=== PATIENT | male | born 1940 | race Native Hawaiian/Other Pacific Islander ===

== ENCOUNTER 2017-03-27 06:28 | Inpatient (IN) | payer MEDICARE ==
[2017-03-27 06:29] VITALS: BMI 22.8
[2017-03-27 07:04] LABS: BASO # 0.1 K/uL (0.0-0.2); BASO % 0.5 % (0.0-2.0); EOS # 0.3 K/uL (0.0-0.7); EOS % 1.4 % (0.0-4.0); HEMATOCRIT 45.4 % (35.0-51.0); LYMPH # 1.8 K/uL (1.0-4.3); LYMPH % 8.5 % (20.0-40.0); MEAN CELL VOLUME 90.2 fL (80.0-94.0); MEAN CORPUSCULAR HEMOGLOBIN 30.5 pg (27.0-31.0); MEAN CORPUSCULAR HGB CONC 33.8 g/dL (33.0-37.0); MEAN PLATELET VOLUME 8.3 fL (7.2-11.7); MONO % 4.6 % (0.0-10.0); PLATELET COUNT 241 K/uL (130-400); RED CELL DISTRIBUTION WIDTH 13.4 % (11.5-14.5)
[2017-03-27 07:07] LABS: WHITE BLOOD COUNT 21.7 K/uL (4.8-10.8)
[2017-03-27 07:11] LABS: CHLORIDE 92 mmol/L (98-107); SODIUM 134 mmol/L (132-148)
[2017-03-27 07:12] LABS: POTASSIUM 3.9 mmol/L (3.6-5.2)
[2017-03-27 07:14] LABS: ALB/GLOB RATIO 1.2 (1.0-2.1); ALKALINE PHOSPHATASE 93 U/L (38-126); ALT/SGPT 36 U/L (21-72); AST/SGOT 36 U/L (17-59); BILIRUBIN,TOTAL 1.1 mg/dL (0.2-1.3); BLOOD UREA NITROGEN 19 mg/dL (9-20); CARBON DIOXIDE 25 mmol/L (22-30); GFR AFRICAN-AMERICAN > 60; GLUCOSE,RANDOM 294 mg/dL (75-110); INR 1.2; TOTAL PROTEIN 9.2 g/dL (6.3-8.3)
[2017-03-27 07:15] LABS: CALCIUM 9.9 mg/dl (8.6-10.4)
[2017-03-27] MEDS ORDERED: Sodium Chloride 0.9% 1,000 ML ONE ×3 (07:38→13:12)
--- NOTE | 2017-03-27 07:52 | C.PDOC ---
History Of Present Illness 77-year-old male, PMHx includes Arthritis, Atrial Fibrillation, Diabetes, Colon CA, Gastritis, Hypertension, Hypercholesterolemia, presents to the emergency department accompanied by (acting as historian), with complaints of abdominal pain. reports that patient developed lower abdominal pain that started at 12:00 this morning. Pain persistent in nature and non-radiating, described as a "cramping" sensation. reports that patient woke up this morning, and developed nausea with non-bloody vomiting, resulting in him being brought to the ED for evaluation. Last normal bowel movement was yesterday morning. No fevers, chills, chest pain, shortness of breath, back pain, dizziness, bloody stool, or any other associated symptoms. No other complaints at this time. Of note, patient is lactulose dependent (every two days) due to chronic constipation. Time Seen by Provider: 03/27/17 07:20 Chief Complaint (Nursing): Abdominal Pain History Per: Patient, Family History/Exam Limitations: no limitations Onset/Duration Of Symptoms: Hrs Current Symptoms Are (Timing): Still Present Severity: Moderate Location Of Pain/Discomfort: RLQ, LLQ Associated Symptoms: Nausea, Vomiting Past Medical History Reviewed: Historical Data, Nursing Documentation, Vital Signs Vital Signs: Last Vital Signs Temp 100.6 F H 03/27/17 13:08 Pulse 117 H 03/27/17 13:08 Resp 18 03/27/17 13:08 BP 139/67 03/27/17 13:08 Pulse Ox 98 03/27/17 13:55 - Medical History PMH: Arthritis, Atrial Fibrillation, Cardia Arrhythmia, Diabetes, 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 Constitutional: Negative for: Fever Cardiovascular: Negative for: Chest Pain Gastrointestinal: Positive for: Nausea, Vomiting, Abdominal Pain. Negative for : Hematochezia, Hematemesis Musculoskeletal: Negative for: Back Pain Neurological: Negative for: Weakness, Numbness, Headache, Dizziness Physical Exam - Physical Exam Appears: Non-toxic, No Acute Distress, Other (Actively vomiting.) Skin: Warm, Dry, No Rash Head: Atraumatic, Normacephalic Eye(s): bilateral: Normal Inspection, PERRL Nose: Normal Oral Mucosa: Moist Lips: Normal Appearing Neck: Normal ROM, Supple Chest: Symmetrical Cardiovascular: Rhythm Regular, No Friction Rub, No Murmur Respiratory: Normal Breath Sounds, No Accessory Muscle Use Gastrointestinal/Abdominal: Bowel Sounds (active), Soft, Tenderness (lower), No Guarding, No Rebound Extremity: Normal ROM, No Tenderness, No Swelling Neurological/Psych: Oriented x3, Normal Speech, Normal Motor Gait: Steady ED Course And Treatment - Laboratory Results Result Diagrams: 03/27/17 07:00 03/27/17 07:00 O2 Sat by Pulse Oximetry: 98 (on RA) Pulse Ox Interpretation: Normal - CT Scan/US CT Abd/Pel Other Rad Studies (CT/US): Read By Radiologist, Radiology Report Reviewed CT/US Interpretation: Accession No. : [id number]. Patient Name / ID : AMIRAH FINN / [id number]. Exam Date : 03/27/2017 11:42:57 ( Approved ). Study Comment : Sex / Age : M / 77Y. Creator : Rocky Perea MD. Dictator : Rocky Perea MD. Insurance Agency Manager : Athletics Teacher : Rocky Perea MD. Approver2 : Report Date : 03/27/2017 13:09:39. My Comment : . PROCEDURE: CT Abdomen and Pelvis with contrast. HISTORY: abd pain, r/o obstruction. COMPARISON: 2014. TECHNIQUE: Contrast dose: Radiation dose: Total exam DLP = 887 mGy-cm. This CT exam was performed using one or more of the following dose reduction techniques: Automated exposure control, adjustment of the mA and/or kV according to patient size, and/or use of iterative reconstruction technique. FINDINGS: LOWER THORAX: Small right lower lobe infiltrate.. LIVER: Unremarkable. No gross lesion or ductal dilatation. GALLBLADDER AND BILE DUCTS: Gallstones.. PANCREAS: Unremarkable. No gross lesion or ductal dilatation. SPLEEN: Unremarkable. ADRENALS: Unremarkable. No mass. KIDNEYS AND URETERS: Unremarkable. No hydronephrosis. No solid mass. VASCULATURE: Unremarkable. No aortic aneurysm. BOWEL: Multiple dilated Loops of small bowel particularly in the left lower quadrant compatible with early or partial small bowel obstruction vs. Ileus. Evidence of previous bowel surgery.. No obstruction. No gross mural thickening. APPENDIX: Normal appendix. PERITONEUM: Unremarkable. No free fluid. No free air. LYMPH NODES: Unremarkable. No enlarged lymph nodes. BLADDER: Unremarkable. REPRODUCTIVE : Unremarkable. BONES: No acute fracture. OTHER FINDINGS: None. IMPRESSION : Multiple dilated Loops of small bowel with fluid in the left lower quadrant compatible with early or partial small bowel obstruction vs. Ileus. Otherwise, pcontrast enhanced CT of the abdomen and pelvis. Medical Decision Making Medical Decision Making: Plan: * VBG Shock Panel * CMP, Lipase * CBC, PTT, PT * Chest X-Ray * Morphine, IVF, Zofran * Urine Culture * X-Ray: Abd * Urinalysis * Reassess and Disposition Progress: Patients WBC found to be 21.7, and bands 17, will order CT Abd/Pel to r/o obstruction. [address] shows Multiple dilated Loops of small bowel with fluid in the left lower quadrant compatible with early or partial small bowel obstruction vs. Ileus. Otherwise, contrast enhanced CT of the abdomen and pelvis. 1348, CT and CXR show Right lower infiltrate will treat for community acquired pneumonia with rocephin and zithromax IV. 1350, the case was discussed with the vice president lending oncjordon and consult was placed for Dr. Torres (general surgeon oncall) for SMall bowel obstruction. Disposition - Disposition Disposition: HOSPITALIZED Disposition Time: 13:57 Condition: FAIR - POA Present On Arrival: None - Clinical Impression Clinical Impression: Abdominal pain, Small bowel obstruction, Pneumonia - Scribe Statement The provider has reviewed the documentation as recorded by the Judith Spencer All medical record entries made by the Scribe were at my direction and personally dictated by me. I have reviewed the chart and agree that the record accurately reflects my personal performance of the history, physical exam, medical decision making, and the department course for this patient. I have also personally directed, reviewed, and agree with the discharge instructions and disposition.
[2017-03-27] MEDS ORDERED: Sodium Chloride 0.9% 1,000 ML IV ONE ×3 (07:54→13:09)
[2017-03-27] MEDS ORDERED: Morphine 4 MG/ML VIAL ONE (08:01)
[2017-03-27 08:17] LABS: EOSINOPHIL 1 % (0-4); NEUTROPHIL 68 % (50-75); TOTAL CELLS COUNTED 100
[2017-03-27 08:20] LABS: RBC URINE 1 /hpf (0-3); URINE BILIRUBIN NEGATIVE (NEGATIVE); URINE BLOOD 1+ (NEGATIVE); URINE COLOR Yellow (YELLOW); URINE GLUCOSE (UA) 3+ mg/dL (Normal); URINE KETONE NEGATIVE (NEGATIVE); URINE LEUKOCYTE ESTERASE NEG Leu/uL (Negative); URINE PROTEIN NEGATIVE (NEGATIVE); URINE UROBILINOGEN NORMAL mg/dL (0.2-1.0); WBC URINE 1 /hpf (0-5)
[2017-03-27 08:54] LABS: VENOUS BLOOD GAS BASE EXCESS 0.5 mmol/L (0.0-2.0); VENOUS BLOOD GAS PCO2 61 mmHg (40-60); VENOUS BLOOD PH 7.28 (7.32-7.43)
[2017-03-27] MEDS ORDERED: Iohexol 240 (50 ml) ONE (09:04)
[2017-03-27] MEDS ORDERED: Iohexol 240 (50 ml) PO STA (09:07)
[2017-03-27] MEDS ORDERED: Iodixanol 320 MG/ML 100 ML BOTTLE IV ONE (11:33)
--- NOTE | 2017-03-27 13:11 | CT ---
PROCEDURE: CT Abdomen and Pelvis with contrast HISTORY: abd pain, r/o obstruction COMPARISON: 2014. TECHNIQUE: Contrast dose: Radiation dose: Total exam DLP = 887 mGy-cm. This CT exam was performed using one or more of the following dose reduction techniques: Automated exposure control, adjustment of the mA and/or kV according to patient size, and/or use of iterative reconstruction technique. FINDINGS: LOWER THORAX: Small right lower lobe infiltrate.. LIVER: Unremarkable. No gross lesion or ductal dilatation. GALLBLADDER AND BILE DUCTS: Gallstones.. PANCREAS: Unremarkable. No gross lesion or ductal dilatation. SPLEEN: Unremarkable. ADRENALS: Unremarkable. No mass. KIDNEYS AND URETERS: Unremarkable. No hydronephrosis. No solid mass. VASCULATURE: Unremarkable. No aortic aneurysm. BOWEL: Multiple dilated Loops of small bowel particularly in the left lower quadrant compatible with early or partial small bowel obstruction vs. Ileus. Evidence of previous bowel surgery.. No obstruction. No gross mural thickening. APPENDIX: Normal appendix. PERITONEUM: Unremarkable. No free fluid. No free air. LYMPH NODES: Unremarkable. No enlarged lymph nodes. BLADDER: Unremarkable. REPRODUCTIVE: Unremarkable. BONES: No acute fracture. OTHER FINDINGS: None. IMPRESSION: Multiple dilated Loops of small bowel with fluid in the left lower quadrant compatible with early or partial small bowel obstruction vs. Ileus. Otherwise, pcontrast enhanced CT of the abdomen and pelvis.
--- NOTE | 2017-03-27 13:47 | RAD ---
HISTORY: ABD PAIN COMPARISON: No prior. FINDINGS: BOWEL: Multiple dilated loops of small bowel with air-fluid levels compatible with small bowel obstruction. BONES: Normal. OTHER FINDINGS: None. IMPRESSION: Findings suggestive of small-bowel obstruction.
[2017-03-27] MEDS ORDERED: cefTRIAXone IV 1 gm in Dextros 50 ML IV ONE (13:50)
--- NOTE | 2017-03-27 13:51 | RAD ---
HISTORY: abd pain COMPARISON: No prior. FINDINGS: LUNGS: No active pulmonary disease. PLEURA: No significant pleural effusion identified, no pneumothorax apparent. CARDIOVASCULAR: Normal. OSSEOUS STRUCTURES: No significant abnormalities. VISUALIZED UPPER ABDOMEN: Normal. OTHER FINDINGS: None. IMPRESSION: No active disease.
[2017-03-27] MEDS ORDERED: Digoxin 500 mcg/2ml (0.5 mg/2ml) Inj IVP ONE (13:58)
[2017-03-27] MEDS ORDERED: Azithromycin 500mg/250ML NS 500 MG/250 ML BAG IV SCH (14:00)
[2017-03-27] MEDS ORDERED: cefTRIAXone IV 1 gm in Dextros 50 ML IVPB ONE (14:13)
[2017-03-27] MEDS ORDERED: Digoxin 500 mcg/2ml (0.5 mg/2ml) Inj ONE (14:14)
[2017-03-27 14:21] VITALS: PULSE 106
--- NOTE | 2017-03-27 15:22 | CP.PCM.CON ---
History of Present Illness - History of Present Illness History of Present Illness: Surgery Consult: Dr. Torres CC: "Abdominal pain" HPI: 77 yo M with a hx of Colon CA in remission, left hemicolectomy, AFib, DM, gastritis, HTN, HLD, and SBO presents to the abdominal pain that began at midnight this morning. At 5AM, he experienced some nausea and vomited clear liquid. He vomited twice more in the ED but responded to Zofran and has not vomited since then. He had a similar episode of SBO 4 years ago which resulted in admission w/ ex-lap and lysis of adhesions. His reports that he has not been passing flatus. Denies fever and chills. Last BM was yesterday. MedHx: Colon CA, Afib, DM, gastritis, HTN, HLD SurgHx: Partial colon resection, ex-lap/w XIMENA FamHx: unknown Allergies: NKDA Review of Systems - Constitutional Constitutional: absent: Chills, Fever - Cardiovascular Cardiovascular: Irregular Heart Rhythm - Respiratory Respiratory: absent: Cough, Dyspnea on Exertion, Wheezing - Gastrointestinal Gastrointestinal: Abdominal Pain, Vomiting. absent: Change in Stool Character, Diarrhea Past Patient History - Infectious Disease Hx of Infectious Diseases: None - Past Medical History & Family History Past Medical History?: Yes - Past Social History Smoking Status: Former Smoker - CARDIAC Hx Atrial Fibrillation: Yes Hx Cardia Arrhythmia: Yes Hx Hypercholesterolemia: Yes Hx Hypertension: Yes - PULMONARY Hx Respiratory Disorders: No - NEUROLOGICAL Hx Neurological Disorder: Yes Other/Comment: NEUROPATHY - HEENT Hx HEENT Problems: Yes Other/Comment: HX DEVIATED SEPTUM - RENAL Hx Chronic Kidney Disease: No - ENDOCRINE/METABOLIC Hx Endocrine Disorders: Yes Hx Diabetes Mellitus Type 1: Yes Hx Diabetes Mellitus Type 2: Yes - HEMATOLOGICAL/ONCOLOGICAL Hx Blood Disorders: Yes Hx Blood Transfusions: Yes Hx Cancer: Yes (COLON) Hx Chemotherapy: Yes (,2003) - INTEGUMENTARY Hx Dermatological Problems: No - MUSCULOSKELETAL/RHEUMATOLOGICAL Hx Arthritis: Yes - GASTROINTESTINAL 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) Hx Gastritis: Yes - GENITOURINARY/GYNECOLOGICAL Hx Genitourinary Disorders: No - PSYCHIATRIC Hx Substance Use: No - SURGICAL HISTORY Hx Appendectomy: Yes Hx Tonsillectomy: Yes - ANESTHESIA Hx Anesthesia: Yes Hx Anesthesia Reactions: No Meds Allergies/Adverse Reactions: Allergies Allergy/AdvReac Type Severity Reaction Status Date / Time No Known Allergies Allergy Verified 04/10/13 16:16 - Medications Medications: Current Medications Azithromycin (Zithromax 500mg In Ns Addvantage) 500 mg in 250 mls @ 166.667 mls /hr IV STAT CAITLYN Physical Exam - Constitutional Appears: No Acute Distress - Head Exam Head Exam: NORMAL INSPECTION - ENT Exam ENT Exam: Mucous Membranes Moist - Respiratory Exam Respiratory Exam: Clear to Auscultation Bilateral - Cardiovascular Exam Cardiovascular Exam: Irregular Rhythm - GI/Abdominal Exam GI & Abdominal Exam: Distended, Normal Bowel Sounds, Soft, Tenderness (left lower and right quadrants). absent: Guarding, Hernia, Mass, Rebound, Rigid Additional comments: well-healed midline incision - Rectal Exam Rectal Exam: Deferred - Extremities Exam Extremities exam: Negative for: pedal edema - Neurological Exam Neurological exam: Alert, Oriented x3 - Psychiatric Exam Psychiatric exam: Normal Affect, Normal Mood - Skin Skin Exam: Normal Color, Warm Results - Vital Signs Recent Vital Signs: Last Vital Signs Temp 98.8 F 03/27/17 14:45 Pulse 96 H 03/27/17 14:45 Resp 16 03/27/17 14:45 BP 122/56 L 03/27/17 14:45 Pulse Ox 97 03/27/17 14:45 - Labs Result Diagrams: 03/27/17 07:00 03/27/17 07:00 Assessment & Plan - Assessment and Plan (Free Text) Assessment: 77M with PMHx Colon CA with SBO -Rec conservative mgmt at this time - NPO - zofran prn for nausea - pain meds prn - NGT if vomits again - Recommend GI consult d/w Dr Brian Mcpherson, DO, PGY2 - Date & Time Date: 03/27/17 Time: 15:52
[2017-03-27] MEDS ORDERED: HYDROmorphone 1 mg/ml ISec IVP PRN (15:41)
[2017-03-27] MEDS: Sodium Chloride 0.9% 1,000 ML IV SCH (16:45)
--- NOTE | 2017-03-27 17:29 | CP.PCM.HP ---
History of Present Illness - History of Present Illness History of Present Illness: chief complaint: abdominal pain 77-year-old male with history of colon cancer status post left hemicolectomy in 2003 and lysis of adhesions 4 years ago, history of atrial fibrillation, diabetes, hypertension, hyperlipidemia presented to emergency room with abdominal pain that started last night associated with vomiting once in the morning. CAT scan of the abdomen consistent with early small bowel obstruction/ ileus. Patient states that he is able to pass flatus. Denies cough, denies fever chills, denies night sweats.patient seen by surgery. patient also found to have elevated white count with bands MedHx: Colon CA, Afib, DM, gastritis, HTN, HLD SurgHx: Partial colon resection, ex-lap/w XIMENA FamHx: unknown Allergies: NKDA social history: no history of smoking or drinking Present on Admission - Present on Admission History of DVT/PE: No History of Uncontrolled Diabetes: Yes Review of Systems - Review of Systems All systems: reviewed and no additional remarkable complaints except (abdominal pain associated with vomiting once) Past Patient History - Infectious Disease Hx of Infectious Diseases: None - Past Medical History & Family History Past Medical History?: Yes - Past Social History Smoking Status: Never Smoked - CARDIAC Hx Atrial Fibrillation: Yes Hx Cardia Arrhythmia: Yes Hx Hypercholesterolemia: Yes Hx Hypertension: Yes - PULMONARY Hx Respiratory Disorders: No - NEUROLOGICAL Hx Neurological Disorder: Yes Other/Comment: NEUROPATHY - HEENT Hx HEENT Problems: Yes Other/Comment: HX DEVIATED SEPTUM - RENAL Hx Chronic Kidney Disease: No - ENDOCRINE/METABOLIC Hx Endocrine Disorders: Yes Hx Diabetes Mellitus Type 1: Yes Hx Diabetes Mellitus Type 2: Yes - HEMATOLOGICAL/ONCOLOGICAL Hx Blood Disorders: Yes Hx Blood Transfusions: Yes Hx Cancer: Yes (COLON) Hx Chemotherapy: Yes (,2003) - INTEGUMENTARY Hx Dermatological Problems: No - MUSCULOSKELETAL/RHEUMATOLOGICAL Hx Arthritis: Yes - GASTROINTESTINAL 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) Hx Gastritis: Yes - GENITOURINARY/GYNECOLOGICAL Hx Genitourinary Disorders: No - PSYCHIATRIC Hx Substance Use: No - SURGICAL HISTORY Hx Appendectomy: Yes Hx Tonsillectomy: Yes - ANESTHESIA Hx Anesthesia: Yes Hx Anesthesia Reactions: No Meds Allergies/Adverse Reactions: Allergies Allergy/AdvReac Type Severity Reaction Status Date / Time No Known Allergies Allergy Verified 04/10/13 16:16 Physical Exam - Constitutional Appears: No Acute Distress - Head Exam Head Exam: ATRAUMATIC, NORMOCEPHALIC - Eye Exam Eye Exam: Normal appearance - ENT Exam ENT Exam: Mucous Membranes Moist - Neck Exam Neck exam: Positive for: Normal Inspection - Respiratory Exam Respiratory Exam: Clear to Auscultation Bilateral - Cardiovascular Exam Cardiovascular Exam: REGULAR RHYTHM - GI/Abdominal Exam GI & Abdominal Exam: Diminished Bowel Sounds, Soft Results - Vital Signs Recent Vital Signs: Last Vital Signs Temp 98.8 F 03/27/17 14:45 Pulse 96 H 03/27/17 14:45 Resp 16 03/27/17 14:45 BP 122/56 L 03/27/17 14:45 Pulse Ox 97 03/27/17 14:45 - Labs Result Diagrams: 03/27/17 07:00 03/27/17 07:00 Labs: Laboratory Results - last 24 hr 03/27/17 16:08 POC Glucose (mg/dL) 105 Assessment & Plan (1) Leucocytosis Status: Acute Comment: elevated white count with bands Etiology unknown. Chest x-ray showed no infiltrate but CAT scan of the abdomen consistent with small right lung infiltrate, Gallstones and early small bowel obstruction. ID evaluation. Followup culture and sensitivity. No indication for surgery at this point. Glycemic control (2) Abdominal pain Status: Acute (3) Small bowel obstruction Status: Acute
--- NOTE | 2017-03-27 17:56 | CP.PCM.CON ---
History of Present Illness - History of Present Illness History of Present Illness: INFECTIOUS DISEASE CONSULT: HPI: 77-year-old male with history of COLON CA , DX 2003 S/P left hemicolectomy with postoperative chemotherapy and radiation therapy, atrial fibrillation, diabetes mellitus, gastritis, hypertension, hyperlipidemia and with history of previous small bowel obstruction with exploratory lap and lysis of adhesions who presented to [facility] ER with generalized abdominal pain which started midnight this morning. He also experienced nausea and vomited clear liquids at 5 AM in the morning. This resulted in his to bring him to the ER where he vomited twice but responded to Zofran and has not vomited since then. Patient's is present which may be giving the history that he had similar episode of small bowel obstruction for years ago which resulted in exploratory lap and lysis of adhesions. She also states patient has chronic constipation for which she takes lactulose every other day. On admission patient was found to have elevated WBC count of 21.7 with 17% bandemia and elevated lactate of 2.1. CT scan of the abdomen and pelvis with IV contrast showed dilated small bowel with fluid left lower quadrant consistent with small bowel obstruction versus ileus. A small right lower lobe infiltrate was also seen on CT of the abdomen and pelvis. Patient presently complaining of mild cough with occasional yellowish phlegm . Patient denies any fever or chills but in the ER he was 100.4. Infectious disease consultation requested by PMD for sepsis and leukocytosis. PATIENT DENIES ANY WEIGHT LOSS BUT COMPLAINS OF POOR APPETITE PATIENT PRESENTLY ADMITS TO TWO LOOSE WATERY STOOLS AFTER HAVING A REGULAR STOOL ALLERGIES; NKA. PMH: Arthritis, Atrial Fibrillation, Cardiac Arrhythmia, Diabetes, 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), Gastritis, HTN, Hypercholesterolemia Denies: Chronic Kidney Disease Surgical History: Appendectomy, Tonsillectomy,MULTIPLE SURGERIES ON THE ABDOMEN. FAMILY HISTORY; NONCONTRIBUTORY. SOCIAL HISTORY; OCCASIONAL SMOKING QUIT SEVERAL YEARS AGO. DENIES ALCOHOL ABUSE MEDS; PATIENT GOT 1 DOSE OF CEFTRIAXONE 1 G IN THE ER / ON CIPRO 400 EVERY 12 HOURLY.6/2 ON ZITHROMAX 500 ONCE A DAY DAILY. /2 ON METRONIDAZOLE 500 EVERY 8 HOURLY 03/27/17. Review of Systems - Constitutional Constitutional: As Per HPI, Chills, Fatigue, Fever, Weakness. absent: Weight Loss - EENT Nose/Mouth/Throat: absent: Mouth Lesions - Cardiovascular Cardiovascular: absent: Chest Pain, Leg Edema - Respiratory Respiratory: Cough, Change in Mucous Color - Gastrointestinal Gastrointestinal: Abdominal Pain, Constipation, Diarrhea, Nausea, Vomiting - Genitourinary Genitourinary: absent: Dysuria - Integumentary Integumentary: As Per HPI - Neurological Neurological: absent: Headaches - Hematologic/Lymphatic Hematologic: As Per HPI. absent: Lymphadenopathy Past Patient History - Infectious Disease Hx of Infectious Diseases: None - Past Medical History & Family History Past Medical History?: Yes - Past Social History Smoking Status: Never Smoked - CARDIAC Hx Atrial Fibrillation: Yes Hx Cardia Arrhythmia: Yes Hx Hypercholesterolemia: Yes Hx Hypertension: Yes - PULMONARY Hx Respiratory Disorders: No - NEUROLOGICAL Hx Neurological Disorder: Yes Other/Comment: NEUROPATHY - HEENT Hx HEENT Problems: Yes Other/Comment: HX DEVIATED SEPTUM - RENAL Hx Chronic Kidney Disease: No - ENDOCRINE/METABOLIC Hx Endocrine Disorders: Yes Hx Diabetes Mellitus Type 1: Yes Hx Diabetes Mellitus Type 2: Yes - HEMATOLOGICAL/ONCOLOGICAL Hx Blood Disorders: Yes Hx Blood Transfusions: Yes Hx Cancer: Yes (COLON) Hx Chemotherapy: Yes (,2003) - INTEGUMENTARY Hx Dermatological Problems: No - MUSCULOSKELETAL/RHEUMATOLOGICAL Hx Arthritis: Yes - GASTROINTESTINAL 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) Hx Gastritis: Yes - GENITOURINARY/GYNECOLOGICAL Hx Genitourinary Disorders: No - PSYCHIATRIC Hx Substance Use: No - SURGICAL HISTORY Hx Appendectomy: Yes Hx Tonsillectomy: Yes - ANESTHESIA Hx Anesthesia: Yes Hx Anesthesia Reactions: No Meds Allergies/Adverse Reactions: Allergies Allergy/AdvReac Type Severity Reaction Status Date / Time No Known Allergies Allergy Verified 04/10/13 16:16 - Medications Medications: Current Medications Acetaminophen (Tylenol 325mg Tab) 650 mg PO Q6 PRN PRN Reason: Fever >100.4 F Hydromorphone HCl (Dilaudid) 1 mg IVP Q4H PRN PRN Reason: Pain, moderate (4-7) Azithromycin (Zithromax 500mg In Ns Addvantage) 500 mg in 250 mls @ 166.667 mls /hr IV STAT CAITLYN Ciprofloxacin (Cipro 200mg/100ml D5w) 100 mls @ 67 mls/hr IVPB Q12H CAITLYN Metronidazole (Flagyl) 500 mg in 100 mls @ 100 mls/hr IVPB Q8H CAITLYN Sodium Chloride (Sodium Chloride 0.9%) 1,000 mls @ 100 mls/hr IV .Q10H [facility] Insulin Human Regular (Novolin R) 0 unit SC ACHS CAITLYN PRN Reason: Protocol Ondansetron HCl (Zofran Inj) 4 mg IVP DAILY@ONCE PRN PRN Reason: Nausea/Vomiting Pantoprazole Sodium (Protonix Inj) 40 mg IVP DAILY [facility] Physical Exam - Constitutional Appears: No Acute Distress - Head Exam Head Exam: NORMAL INSPECTION - Eye Exam Eye Exam: EOMI, PERRL - ENT Exam ENT Exam: Normal Oropharynx - Neck Exam Neck exam: Positive for: Normal Inspection - Respiratory Exam Respiratory Exam: Rhonchi (RT.BASE), NORMAL BREATHING PATTERN - Cardiovascular Exam Cardiovascular Exam: REGULAR RHYTHM, +S1, +S2 - GI/Abdominal Exam GI & Abdominal Exam: Normal Bowel Sounds, Soft. absent: Organomegaly, Tenderness (GENERALIZED.) Additional comments: MIDLINE SCAR OF PREVIOUS SURGERY WELL-HEALED.. - Extremities Exam Extremities exam: Positive for: pedal pulses present. Negative for: calf tenderness, pedal edema - Neurological Exam Neurological exam: Alert, CN II-XII Intact, Oriented x3, Reflexes Normal - Skin Skin Exam: Normal Color, Warm Results - Vital Signs Recent Vital Signs: Last Vital Signs Temp 98.8 F 03/27/17 14:45 Pulse 96 H 03/27/17 14:45 Resp 16 03/27/17 14:45 BP 122/56 L 03/27/17 14:45 Pulse Ox 97 03/27/17 14:45 - Labs Result Diagrams: 03/27/17 07:00 03/27/17 07:00 Labs: Laboratory Results - last 24 hr 03/27/17 16:08 POC Glucose (mg/dL) 105 - Imaging and Cardiology CT scan - abdomen/AND PELVIS WITH iv CONTRAST. Status: Report reviewed by me Assessment & Plan (1) Sepsis Assessment and Plan: pancultures SOURCE OF SEPSIS ? SBO / ILEUS R/O COLITIS. RLL PNEUMONIA/VS ATELECTASIS. DC IV CIPRO. START iv ZOSYN 3.375 EVERY 8 HOURLY.03/27/17. CONTINUE iv fLAGYL 500 EVERY 8 HOURLY. 03/27/17. D/C ZITHROMAX. STOOLS FOR OCCULT BLOOD. STOOLS FOR LEUKOCYTES/CULTURE StOOLS. C DIFFICILE TOXIN. Status: Acute (2) Abdominal pain Assessment and Plan: CT ABDOMEN AND PELVIS WITH iv CONTRAST; Multiple dilated Loops of small bowel with fluid in the left lower quadrant compatible with early or partial small bowel obstruction vs. Ileus. LOWER THORAX: Small right lower lobe infiltrate.. LIVER: Unremarkable. No gross lesion or ductal dilatation. GALLBLADDER AND BILE DUCTS: Gallstones.. PANCREAS: Unremarkable. No gross lesion or ductal dilatation. SPLEEN Status: Acute (3) Leucocytosis Status: Acute (4) Pneumonia Status: Acute
[2017-03-27] MEDS ORDERED: Ciprofloxacin 200mg/100ml D5W 100 ML IVPB SCH (18:00)
[2017-03-27] MEDS: metroNIDAZOLE IV 500 mg/100 ml 500 MG/100 ML BAG IVPB SCH (19:25)
[2017-03-27] MEDS: Piperacill/Tazo 3.375gm in Dex 3.375 GM/50 ML BAG IVPB SCH (20:28)
[2017-03-27] MEDS: (Novolin R) Insulin Human Regular 100 units/ml vial SC SCH (22:30)
[2017-03-28] MEDS: Piperacill/Tazo 3.375gm in Dex 3.375 GM/50 ML BAG IVPB SCH ×4 (02:36→22:37)
[2017-03-28] MEDS: metroNIDAZOLE IV 500 mg/100 ml 500 MG/100 ML BAG IVPB SCH ×3 (02:37→22:36)
[2017-03-28] MEDS: Sodium Chloride 0.9% 1,000 ML IV SCH ×3 (04:39→22:39)
[2017-03-28] MEDS: HYDROmorphone 0.5 mg/0.5 ml ISec IVP PRN ×2 (04:40→16:42)
[2017-03-28] MEDS: (Novolin R) Insulin Human Regular 100 units/ml vial SC SCH ×4 (07:30→22:32)
[2017-03-28 07:41] LABS: BASO % 0.2 % (0.0-2.0); EOS # 0.3 K/uL (0.0-0.7); EOS % 3.6 % (0.0-4.0); HEMATOCRIT 35.2 % (35.0-51.0); LYMPH # 1.2 K/uL (1.0-4.3); LYMPH % 15.7 % (20.0-40.0); MEAN CELL VOLUME 90.8 fL (80.0-94.0); MEAN CORPUSCULAR HEMOGLOBIN 30.6 pg (27.0-31.0); MEAN CORPUSCULAR HGB CONC 33.7 g/dL (33.0-37.0); MEAN PLATELET VOLUME 8.2 fL (7.2-11.7); MONO # 0.7 K/uL (0.0-0.8); MONO % 9.2 % (0.0-10.0); NRBC % 0.1 % (0.0-2.0); RED CELL DISTRIBUTION WIDTH 13.5 % (11.5-14.5)
[2017-03-28 07:47] LABS: CHLORIDE 103 mmol/L (98-107)
[2017-03-28 07:48] LABS: POTASSIUM 4.1 mmol/L (3.6-5.2); SODIUM 136 mmol/L (132-148)
[2017-03-28 07:50] LABS: ALKALINE PHOSPHATASE 40 U/L (38-126); AST/SGOT 41 U/L (17-59); BILIRUBIN,TOTAL 1.1 mg/dL (0.2-1.3); BLOOD UREA NITROGEN 19 mg/dL (9-20); CARBON DIOXIDE 27 mmol/L (22-30); GFR AFRICAN-AMERICAN > 60; GLUCOSE,RANDOM 88 mg/dL (75-110); TOTAL PROTEIN 6.1 g/dL (6.3-8.3)
[2017-03-28 07:51] LABS: ALT/SGPT 37 U/L (21-72)
[2017-03-28 07:52] LABS: WHITE BLOOD COUNT 7.9 K/uL (4.8-10.8)
[2017-03-28 08:14] VITALS: RESP 20
--- NOTE | 2017-03-28 11:26 | CP.PCM.PN ---
Subjective - Date & Time of Evaluation Date of Evaluation: 03/28/17 Time of Evaluation: 11:24 - Subjective Subjective: Surgery: Dr. Torres Pt seen and examined. Resting comfortably in bed. Pain improved. No n/v. +BM this AM. Objective - Vital Signs/Intake and Output Vital Signs (last 24 hours): Temp Pulse Resp BP Pulse Ox 97.7 F 95 H 20 108/57 L 98 03/28/17 08:13 03/28/17 08:13 03/28/17 08:13 03/28/17 08:13 03/28/17 08:13 Intake and Output: 03/28/17 03/28/17 06:59 18:59 Intake Total 700 Balance 700 - Medications Medications: Current Medications Acetaminophen (Tylenol 325mg Tab) 650 mg PO Q6 PRN PRN Reason: Fever >100.4 F Heparin Sodium (Porcine) (Heparin) 5,000 units SC Q12 [facility] Last Admin: 03/28/17 10:52 Dose: 5,000 units Hydromorphone HCl (Dilaudid) 0.5 mg IVP Q4H PRN PRN Reason: Pain, moderate (4-7) Last Admin: 03/28/17 04:40 Dose: 0.5 mg Azithromycin (Zithromax 500mg In Ns Addvantage) 500 mg in 250 mls @ 166.667 mls /hr IV STAT [facility] Metronidazole (Flagyl) 500 mg in 100 mls @ 100 mls/hr IVPB Q8H [facility] Last Admin: 03/28/17 11:00 Dose: 100 mls/hr Sodium Chloride (Sodium Chloride 0.9%) 1,000 mls @ 100 mls/hr IV .Q10H [facility] Last Admin: 03/28/17 04:39 Dose: Not Given Piperacillin Sod/Tazobactam Sod (Zosyn 3.375 Gm Iv Premix) 3.375 gm in 50 mls @ 100 mls/hr IVPB Q6H [facility] Last Admin: 03/28/17 08:24 Dose: 100 mls/hr Insulin Human Regular (Novolin R) 0 unit SC ACHS [facility] PRN Reason: Protocol Last Admin: 03/28/17 07:30 Dose: Not Given Ondansetron HCl (Zofran Inj) 4 mg IVP DAILY@ONCE PRN PRN Reason: Nausea/Vomiting Pantoprazole Sodium (Protonix Inj) 40 mg IVP DAILY [facility] Last Admin: 03/28/17 10:52 Dose: 40 mg - Labs Labs: 03/28/17 07:26 03/28/17 07:26 PT 13.0 SECONDS (9.7-12.2) H 03/27/17 07:00 INR 1.2 03/27/17 07:00 APTT 36 SECONDS (21-34) H 03/27/17 07:00 - Constitutional Appears: Non-toxic, No Acute Distress - Head Exam Head Exam: ATRAUMATIC, NORMOCEPHALIC - Eye Exam Eye Exam: EOMI - ENT Exam ENT Exam: Mucous Membranes Moist - Neck Exam Neck Exam: Full ROM - Respiratory Exam Respiratory Exam: NORMAL BREATHING PATTERN. absent: Accessory Muscle Use, Respiratory Distress - GI/Abdominal Exam GI & Abdominal Exam: Soft. absent: Distended, Firm, Guarding, Rigid, Tenderness - Extremities Exam Extremities Exam: absent: Calf Tenderness, Pedal Edema - Neurological Exam Neurological Exam: Alert, Awake, Oriented x3 Assessment and Plan - Assessment and Plan (Free Text) Assessment: 77M w. SBO -will start CLD, ADAT -serial abd exams -d/w attending [facility] PGY2
--- NOTE | 2017-03-28 14:01 | CP.PCM.PN ---
Subjective - Date & Time of Evaluation Date of Evaluation: 03/28/17 Time of Evaluation: 14:01 Objective - Vital Signs/Intake and Output Vital Signs (last 24 hours): Temp Pulse Resp BP Pulse Ox 97.7 F 95 H 20 108/57 L 98 03/28/17 08:13 03/28/17 08:13 03/28/17 08:13 03/28/17 08:13 03/28/17 08:13 Intake and Output: 03/28/17 03/28/17 06:59 18:59 Intake Total 700 Balance 700 - Medications Medications: Current Medications Acetaminophen (Tylenol 325mg Tab) 650 mg PO Q6 PRN PRN Reason: Fever >100.4 F Heparin Sodium (Porcine) (Heparin) 5,000 units SC Q12 [facility] Last Admin: 03/28/17 10:52 Dose: 5,000 units Hydromorphone HCl (Dilaudid) 0.5 mg IVP Q4H PRN PRN Reason: Pain, moderate (4-7) Last Admin: 03/28/17 04:40 Dose: 0.5 mg Azithromycin (Zithromax 500mg In Ns Addvantage) 500 mg in 250 mls @ 166.667 mls /hr IV STAT [facility] Metronidazole (Flagyl) 500 mg in 100 mls @ 100 mls/hr IVPB Q8H [facility] Last Admin: 03/28/17 11:00 Dose: 100 mls/hr Sodium Chloride (Sodium Chloride 0.9%) 1,000 mls @ 100 mls/hr IV .Q10H [facility] Last Admin: 03/28/17 04:39 Dose: Not Given Piperacillin Sod/Tazobactam Sod (Zosyn 3.375 Gm Iv Premix) 3.375 gm in 50 mls @ 100 mls/hr IVPB Q6H [facility] Last Admin: 03/28/17 08:24 Dose: 100 mls/hr Insulin Human Regular (Novolin R) 0 unit SC ACHS [facility] PRN Reason: Protocol Last Admin: 03/28/17 11:27 Dose: Not Given Ondansetron HCl (Zofran Inj) 4 mg IVP DAILY@ONCE PRN PRN Reason: Nausea/Vomiting Pantoprazole Sodium (Protonix Inj) 40 mg IVP DAILY [facility] Last Admin: 03/28/17 10:52 Dose: 40 mg - Labs Labs: 03/28/17 07:26 03/28/17 07:26 PT 13.0 SECONDS (9.7-12.2) H 03/27/17 07:00 INR 1.2 03/27/17 07:00 APTT 36 SECONDS (21-34) H 03/27/17 07:00 Assessment and Plan (1) Sepsis Status: Acute (2) Abdominal pain Status: Acute (3) Leucocytosis Status: Acute (4) Pneumonia Status: Acute
[2017-03-28 15:53] LABS: C DIFF TOXIN A B NEGATIVE (NEGATIVE)
[2017-03-28 17:45] LABS: FECAL LEUKOCYTES NEGATIVE (NEGATIVE)
--- NOTE | 2017-03-28 18:43 | CP.PCM.PN ---
Subjective - Date & Time of Evaluation Date of Evaluation: 03/28/17 Time of Evaluation: 16:50 - Subjective Subjective: Patient seen and examined for Dr. Martinez Positive bowel movement in the morning Started on clear liquids by surgery Denies abdominal pain Afebrile Seen by infectious disease Stool guaiac positive Objective - Vital Signs/Intake and Output Vital Signs (last 24 hours): Temp Pulse Resp BP Pulse Ox 98.8 F 85 20 117/61 98 03/28/17 16:00 03/28/17 16:00 03/28/17 16:00 03/28/17 16:00 03/28/17 16:00 Intake and Output: 03/28/17 03/28/17 06:59 18:59 Intake Total 700 1200 Output Total 800 Balance 700 400 - Medications Medications: Current Medications Acetaminophen (Tylenol 325mg Tab) 650 mg PO Q6 PRN PRN Reason: Fever >100.4 F Heparin Sodium (Porcine) (Heparin) 5,000 units SC Q12 [facility] Last Admin: 03/28/17 10:52 Dose: 5,000 units Hydromorphone HCl (Dilaudid) 0.5 mg IVP Q4H PRN PRN Reason: Pain, moderate (4-7) Last Admin: 03/28/17 16:42 Dose: 0.5 mg Azithromycin (Zithromax 500mg In Ns Addvantage) 500 mg in 250 mls @ 166.667 mls /hr IV STAT [facility] Metronidazole (Flagyl) 500 mg in 100 mls @ 100 mls/hr IVPB Q8H [facility] Last Admin: 03/28/17 11:00 Dose: 100 mls/hr Sodium Chloride (Sodium Chloride 0.9%) 1,000 mls @ 100 mls/hr IV .Q10H [facility] Last Admin: 03/28/17 11:45 Dose: 100 mls/hr Piperacillin Sod/Tazobactam Sod (Zosyn 3.375 Gm Iv Premix) 3.375 gm in 50 mls @ 100 mls/hr IVPB Q6H [facility] Last Admin: 03/28/17 16:49 Dose: 100 mls/hr Insulin Human Regular (Novolin R) 0 unit SC ACHS [facility] PRN Reason: Protocol Last Admin: 03/28/17 16:46 Dose: Not Given Ondansetron HCl (Zofran Inj) 4 mg IVP DAILY@ONCE PRN PRN Reason: Nausea/Vomiting Pantoprazole Sodium (Protonix Inj) 40 mg IVP DAILY [facility] Last Admin: 03/28/17 10:52 Dose: 40 mg - Labs Labs: 03/28/17 07:26 03/28/17 07:26 PT 13.0 SECONDS (9.7-12.2) H 03/27/17 07:00 INR 1.2 03/27/17 07:00 APTT 36 SECONDS (21-34) H 03/27/17 07:00 - Head Exam Head Exam: ATRAUMATIC, NORMOCEPHALIC - Eye Exam Eye Exam: Normal appearance - ENT Exam ENT Exam: Mucous Membranes Moist - Neck Exam Neck Exam: Full ROM, Normal Inspection - Respiratory Exam Respiratory Exam: Clear to Ausculation Bilateral - Cardiovascular Exam Cardiovascular Exam: Irregular Rhythm - GI/Abdominal Exam GI & Abdominal Exam: Soft - Extremities Exam Extremities Exam: Full ROM, Normal Inspection Assessment and Plan (1) Leucocytosis Assessment & Plan: normal white count Started on IV antibiotics by infectious disease yesterday Followup CBC Advance diet as tolerated Seen by surgery Status: Acute (2) Abdominal pain Status: Acute (3) Small bowel obstruction Status: Acute
--- NOTE | 2017-03-28 19:35 | RAD ---
HISTORY: eval contrast progression - sbo COMPARISON: Comparison made with the prior CT scan abdomen and pelvis dated 03/27/2017 FINDINGS: BOWEL: Multiple air-fluid levels seen within loops of small and large bowel. There appears to be some vague opacification of the proximal aspect descending colon. BONES: Unchanged OTHER FINDINGS: Metallic clips overlying the pelvis again noted. Radiopaque density overlying the right posterolateral sulcus again noted IMPRESSION: Multiple of this air-fluid levels seen within the the small large bowel. There appears to be some vague opacification proximal aspect descending colon
--- NOTE | 2017-03-28 20:07 | CP.PCM.PN ---
Subjective - Date & Time of Evaluation Date of Evaluation: 03/28/17 Time of Evaluation: 20:07 - Subjective Subjective: afebrile. states feels better. less abdominal pain /and discomfort. c/o watery diarrhoea denies N/OR VOMITING . SEEN BY SURGERY . STARTED ON CLEAR LIQUIDS STOOLS +VE OCCULT BLOOD H/H DROPPED Objective - Vital Signs/Intake and Output Vital Signs (last 24 hours): Temp Pulse Resp BP Pulse Ox 98.8 F 85 20 117/61 98 03/28/17 16:00 03/28/17 16:00 03/28/17 16:00 03/28/17 16:00 03/28/17 16:00 Intake and Output: 03/28/17 03/29/17 18:59 06:59 Intake Total 1200 Output Total 800 Balance 400 - Medications Medications: Current Medications Acetaminophen (Tylenol 325mg Tab) 650 mg PO Q6 PRN PRN Reason: Fever >100.4 F Heparin Sodium (Porcine) (Heparin) 5,000 units SC Q12 [facility] Last Admin: 03/28/17 10:52 Dose: 5,000 units Hydromorphone HCl (Dilaudid) 0.5 mg IVP Q4H PRN PRN Reason: Pain, moderate (4-7) Last Admin: 03/28/17 16:42 Dose: 0.5 mg Azithromycin (Zithromax 500mg In Ns Addvantage) 500 mg in 250 mls @ 166.667 mls /hr IV STAT [facility] Metronidazole (Flagyl) 500 mg in 100 mls @ 100 mls/hr IVPB Q8H [facility] Last Admin: 03/28/17 11:00 Dose: 100 mls/hr Sodium Chloride (Sodium Chloride 0.9%) 1,000 mls @ 100 mls/hr IV .Q10H [facility] Last Admin: 03/28/17 11:45 Dose: 100 mls/hr Piperacillin Sod/Tazobactam Sod (Zosyn 3.375 Gm Iv Premix) 3.375 gm in 50 mls @ 100 mls/hr IVPB Q6H [facility] Last Admin: 03/28/17 16:49 Dose: 100 mls/hr Insulin Human Regular (Novolin R) 0 unit SC ACHS [facility] PRN Reason: Protocol Last Admin: 03/28/17 16:46 Dose: Not Given Ondansetron HCl (Zofran Inj) 4 mg IVP DAILY@ONCE PRN PRN Reason: Nausea/Vomiting Pantoprazole Sodium (Protonix Inj) 40 mg IVP DAILY [facility] Last Admin: 03/28/17 10:52 Dose: 40 mg - Labs Labs: 03/28/17 07:26 03/28/17 07:26 PT 13.0 SECONDS (9.7-12.2) H 03/27/17 07:00 INR 1.2 03/27/17 07:00 APTT 36 SECONDS (21-34) H 03/27/17 07:00 - Constitutional Appears: No Acute Distress - Head Exam Head Exam: NORMAL INSPECTION - Eye Exam Eye Exam: EOMI, PERRL. absent: Scleral icterus - ENT Exam ENT Exam: Mucous Membranes Dry, Normal Oropharynx - Respiratory Exam Respiratory Exam: Clear to Ausculation Bilateral - Cardiovascular Exam Cardiovascular Exam: REGULAR RHYTHM, +S1, +S2 - GI/Abdominal Exam GI & Abdominal Exam: Soft, Tenderness (GENERALIZED), Normal Bowel Sounds - Extremities Exam Extremities Exam: absent: Calf Tenderness, Pedal Edema - Neurological Exam Neurological Exam: Alert, Awake, CN II-XII Intact, Normal Gait, Oriented x3, Reflexes Normal - Psychiatric Exam Psychiatric exam: Normal Mood - Skin Skin Exam: Normal Color, Warm Assessment and Plan (1) Sepsis Assessment & Plan: SOURCE OF SEPSIS ? ILEUS R/O COLITIS. / GI BLEEDING RLL PNEUMONIA/VS ATELECTASIS. ON iv ZOSYN 3.375 EVERY 8 HOURLY.03/27/17. CONTINUE iv fLAGYL 500 EVERY 8 HOURLY. 03/27/17. F/U CULTURES. DIARRHOEA W/U Status: Acute (2) Abdominal pain Status: Acute (3) Leucocytosis Assessment & Plan: IMPROVING. H/H DECREASED. STOOLS +VE OCCULT BLOOD. Status: Acute (4) Pneumonia Assessment & Plan: DENIES COUGH/OR EXPECTORATION. ON IV ABX. Status: Acute
[2017-03-29] MEDS: Piperacill/Tazo 3.375gm in Dex 3.375 GM/50 ML BAG IVPB SCH ×4 (02:03→21:07)
[2017-03-29] MEDS: metroNIDAZOLE IV 500 mg/100 ml 500 MG/100 ML BAG IVPB SCH ×3 (03:06→19:00)
--- NOTE | 2017-03-29 06:49 | CP.PCM.PN ---
Subjective - Date & Time of Evaluation Date of Evaluation: 03/29/17 Time of Evaluation: 06:46 - Subjective Subjective: Surgery: Dr. Torres Pt seen and examined. Abd pain persists, but is improved. Tolerated CLD. No N/ V. +F/BM. Objective - Vital Signs/Intake and Output Vital Signs (last 24 hours): Temp Pulse Resp BP Pulse Ox 98.1 F 89 20 135/65 97 03/29/17 00:21 03/29/17 00:21 03/29/17 00:21 03/29/17 00:21 03/29/17 00:21 Intake and Output: 03/28/17 03/29/17 18:59 06:59 Intake Total 1200 2050 Output Total 800 602 Balance 400 1448 - Medications Medications: Current Medications Acetaminophen (Tylenol 325mg Tab) 650 mg PO Q6 PRN PRN Reason: Fever >100.4 F Heparin Sodium (Porcine) (Heparin) 5,000 units SC Q12 [facility] Last Admin: 03/28/17 10:52 Dose: 5,000 units Hydromorphone HCl (Dilaudid) 0.5 mg IVP Q4H PRN PRN Reason: Pain, moderate (4-7) Last Admin: 03/28/17 16:42 Dose: 0.5 mg Azithromycin (Zithromax 500mg In Ns Addvantage) 500 mg in 250 mls @ 166.667 mls /hr IV STAT [facility] Metronidazole (Flagyl) 500 mg in 100 mls @ 100 mls/hr IVPB Q8H [facility] Last Admin: 03/29/17 03:06 Dose: 100 mls/hr Sodium Chloride (Sodium Chloride 0.9%) 1,000 mls @ 100 mls/hr IV .Q10H [facility] Last Admin: 03/28/17 22:39 Dose: Not Given Piperacillin Sod/Tazobactam Sod (Zosyn 3.375 Gm Iv Premix) 3.375 gm in 50 mls @ 100 mls/hr IVPB Q6H [facility] Last Admin: 03/29/17 02:03 Dose: 100 mls/hr Insulin Human Regular (Novolin R) 0 unit SC ACHS [facility] PRN Reason: Protocol Last Admin: 03/28/17 22:32 Dose: Not Given Ondansetron HCl (Zofran Inj) 4 mg IVP DAILY@ONCE PRN PRN Reason: Nausea/Vomiting Pantoprazole Sodium (Protonix Inj) 40 mg IVP DAILY [facility] Last Admin: 03/28/17 10:52 Dose: 40 mg - Labs Labs: 03/28/17 07:26 03/28/17 07:26 PT 13.0 SECONDS (9.7-12.2) H 03/27/17 07:00 INR 1.2 03/27/17 07:00 APTT 36 SECONDS (21-34) H 03/27/17 07:00 - Constitutional Appears: Non-toxic, No Acute Distress - Head Exam Head Exam: ATRAUMATIC, NORMOCEPHALIC - Eye Exam Eye Exam: EOMI - ENT Exam ENT Exam: Mucous Membranes Moist - Neck Exam Neck Exam: Full ROM - Respiratory Exam Respiratory Exam: NORMAL BREATHING PATTERN. absent: Accessory Muscle Use, Respiratory Distress - GI/Abdominal Exam GI & Abdominal Exam: Firm (mild lower quadrants), Soft, Tenderness (mild). absent: Distended, Guarding, Rigid, Hernia, Mass, Rebound - Neurological Exam Neurological Exam: Alert, Awake, Oriented x3 Assessment and Plan - Assessment and Plan (Free Text) Assessment: 77M w. SBO -will advance diet to FLD, ADAT -serial abd exams -d/w attending [facility] PGY2
[2017-03-29] MEDS: (Novolin R) Insulin Human Regular 100 units/ml vial SC SCH ×4 (08:04→22:00)
[2017-03-29] MEDS: Sodium Chloride 0.9% 1,000 ML IV SCH ×2 (08:05→17:00)
--- NOTE | 2017-03-29 23:03 | CP.PCM.PN ---
Subjective - Date & Time of Evaluation Date of Evaluation: 03/29/17 Time of Evaluation: 23:02 - Subjective Subjective: AFEBRILE. STILL HAS LOWER ABDOMINAL DISCOMFORT. NO N/V ADVANCING DIET PER SURGERY. Objective - Vital Signs/Intake and Output Vital Signs (last 24 hours): Temp Pulse Resp BP Pulse Ox 98.4 F 95 H 20 167/58 H 99 03/29/17 15:00 03/29/17 15:00 03/29/17 15:00 03/29/17 15:00 03/29/17 15:00 Intake and Output: 03/29/17 03/30/17 18:59 06:59 Intake Total 480 600 Output Total 700 Balance 480 -100 - Medications Medications: Current Medications Acetaminophen (Tylenol 325mg Tab) 650 mg PO Q6 PRN PRN Reason: Fever >100.4 F Heparin Sodium (Porcine) (Heparin) 5,000 units SC Q12 [facility] Last Admin: 03/28/17 10:52 Dose: 5,000 units Hydromorphone HCl (Dilaudid) 0.5 mg IVP Q4H PRN PRN Reason: Pain, moderate (4-7) Last Admin: 03/28/17 16:42 Dose: 0.5 mg Azithromycin (Zithromax 500mg In Ns Addvantage) 500 mg in 250 mls @ 166.667 mls /hr IV STAT [facility] Metronidazole (Flagyl) 500 mg in 100 mls @ 100 mls/hr IVPB Q8H [facility] Last Admin: 03/29/17 10:36 Dose: 100 mls/hr Sodium Chloride (Sodium Chloride 0.9%) 1,000 mls @ 100 mls/hr IV .Q10H [facility] Last Admin: 03/29/17 17:00 Dose: 100 mls/hr Piperacillin Sod/Tazobactam Sod (Zosyn 3.375 Gm Iv Premix) 3.375 gm in 50 mls @ 100 mls/hr IVPB Q6H [facility] Last Admin: 03/29/17 21:07 Dose: 100 mls/hr Insulin Human Regular (Novolin R) 0 unit SC ACHS [facility] PRN Reason: Protocol Last Admin: 03/29/17 17:36 Dose: Not Given Ondansetron HCl (Zofran Inj) 4 mg IVP DAILY@ONCE PRN PRN Reason: Nausea/Vomiting Pantoprazole Sodium (Protonix Inj) 40 mg IVP DAILY [facility] Last Admin: 03/29/17 10:36 Dose: 40 mg - Labs Labs: 03/28/17 07:26 03/28/17 07:26 PT 13.0 SECONDS (9.7-12.2) H 03/27/17 07:00 INR 1.2 03/27/17 07:00 APTT 36 SECONDS (21-34) H 03/27/17 07:00 - Constitutional Appears: No Acute Distress - Head Exam Head Exam: NORMAL INSPECTION - Eye Exam Eye Exam: EOMI, PERRL - ENT Exam ENT Exam: Normal Oropharynx - Respiratory Exam Respiratory Exam: Rhonchi (RT. BASE) - Cardiovascular Exam Cardiovascular Exam: REGULAR RHYTHM, +S1, +S2 - GI/Abdominal Exam GI & Abdominal Exam: Soft, Tenderness (LOWER QUADRANTS .), Hypoactive Bowel Sounds - Extremities Exam Extremities Exam: absent: Calf Tenderness, Pedal Edema - Neurological Exam Neurological Exam: Awake, CN II-XII Intact, Oriented x3, Reflexes Normal - Psychiatric Exam Psychiatric exam: Normal Mood - Skin Skin Exam: Normal Color, Warm Assessment and Plan (1) Sepsis Assessment & Plan: BLOOD CULTURES -VE URINE CULTURE -VE GROWTH. Status: Acute (2) Abdominal pain Assessment & Plan: ON iv ZOSYN 3.375 EVERY 8 HOURLY.03/27/17. CONTINUE iv fLAGYL 500 EVERY 8 HOURLY. 03/27/17. F/U CULTURES. DIARRHOEA W/U IN PROGRESS Status: Acute (3) Leucocytosis Assessment & Plan: IMPROVING WBC 7.9 H/H DECREASED H/H 11.9/35.2 Status: Acute (4) Pneumonia Assessment & Plan: REPEAT CXR PA/LATERAL R/O PNEUMONIA Status: Acute
[2017-03-30] MEDS: Piperacill/Tazo 3.375gm in Dex 3.375 GM/50 ML BAG IVPB SCH ×2 (02:08→08:21)
[2017-03-30] MEDS: metroNIDAZOLE IV 500 mg/100 ml 500 MG/100 ML BAG IVPB SCH ×2 (03:05→10:15)
[2017-03-30] MEDS: Sodium Chloride 0.9% 1,000 ML IV SCH ×2 (03:10→14:43)
[2017-03-30] MEDS ORDERED: Oxycodone/Acetaminophen 5/325 mg Tab PO PRN (07:02)
--- NOTE | 2017-03-30 07:06 | CP.PCM.PN ---
Subjective - Date & Time of Evaluation Date of Evaluation: 03/30/17 Time of Evaluation: 07:04 - Subjective Subjective: Surgery: Dr. Torres Pt seen and examined. Resting comfortably in bed. Pain persists but is improved. No N/V. Passing flatus, no BM. Objective - Vital Signs/Intake and Output Vital Signs (last 24 hours): Temp Pulse Resp BP Pulse Ox 98.3 F 70 20 144/59 L 98 03/29/17 23:20 03/29/17 23:20 03/29/17 23:20 03/29/17 23:20 03/29/17 23:20 Intake and Output: 03/30/17 03/30/17 06:59 18:59 Intake Total 1600 Output Total 1250 Balance 350 - Medications Medications: Current Medications Acetaminophen (Tylenol 325mg Tab) 650 mg PO Q6 PRN PRN Reason: Fever >100.4 F Docusate Sodium (Colace) 100 mg PO BID [facility] Heparin Sodium (Porcine) (Heparin) 5,000 units SC Q12 [facility] Last Admin: 03/28/17 10:52 Dose: 5,000 units Azithromycin (Zithromax 500mg In Ns Addvantage) 500 mg in 250 mls @ 166.667 mls /hr IV STAT [facility] Metronidazole (Flagyl) 500 mg in 100 mls @ 100 mls/hr IVPB Q8H [facility] Last Admin: 03/30/17 03:05 Dose: 100 mls/hr Sodium Chloride (Sodium Chloride 0.9%) 1,000 mls @ 100 mls/hr IV .Q10H [facility] Last Admin: 03/30/17 03:10 Dose: 100 mls/hr Piperacillin Sod/Tazobactam Sod (Zosyn 3.375 Gm Iv Premix) 3.375 gm in 50 mls @ 100 mls/hr IVPB Q6H [facility] Last Admin: 03/30/17 02:08 Dose: 100 mls/hr Insulin Human Regular (Novolin R) 0 unit SC ACHS [facility] PRN Reason: Protocol Last Admin: 03/29/17 17:36 Dose: Not Given Ondansetron HCl (Zofran Inj) 4 mg IVP DAILY@ONCE PRN PRN Reason: Nausea/Vomiting Oxycodone/Acetaminophen (Percocet 5/325 Mg Tab) 1 tab PO Q4H PRN PRN Reason: Pain, moderate (4-7) Stop: 04/02/17 07:03 Pantoprazole Sodium (Protonix Ec Tab) 40 mg PO DAILY [facility] - Labs Labs: 03/28/17 07:26 03/28/17 07:26 PT 13.0 SECONDS (9.7-12.2) H 03/27/17 07:00 INR 1.2 03/27/17 07:00 APTT 36 SECONDS (21-34) H 03/27/17 07:00 - Constitutional Appears: Non-toxic, No Acute Distress - Head Exam Head Exam: ATRAUMATIC, NORMOCEPHALIC - Eye Exam Eye Exam: EOMI. absent: Scleral icterus - ENT Exam ENT Exam: Mucous Membranes Moist - Neck Exam Neck Exam: Full ROM - Respiratory Exam Respiratory Exam: NORMAL BREATHING PATTERN. absent: Accessory Muscle Use, Respiratory Distress - GI/Abdominal Exam GI & Abdominal Exam: Soft, Tenderness (mild lower quadrants). absent: Distended , Firm, Guarding, Rigid, Rebound - Neurological Exam Neurological Exam: Alert, Awake, Oriented x3 Assessment and Plan - Assessment and Plan (Free Text) Assessment: 77M w. SBO -Passing flatus and having BM -will advance diet to regular -if diet tolerated, pt clear for D/C from surgical standpoint -d/w attending Rosey
[2017-03-30] MEDS: (Novolin R) Insulin Human Regular 100 units/ml vial SC SCH ×3 (08:24→17:37)
[2017-03-30] MEDS ORDERED: Pantoprazole 40 mg EC Tab PO SCH (10:00)
--- NOTE | 2017-03-30 14:49 | CP.PCM.PN ---
Subjective - Date & Time of Evaluation Date of Evaluation: 03/30/17 Time of Evaluation: 11:00 - Subjective Subjective: Patient seen and exam Denies abdominal pain, denies diarrhea and had bowel movement In the morning Denies fever chills Objective - Vital Signs/Intake and Output Vital Signs (last 24 hours): Temp Pulse Resp BP Pulse Ox 98.4 F 59 L 20 135/58 L 98 03/30/17 07:47 03/30/17 07:47 03/30/17 07:47 03/30/17 07:47 03/30/17 07:47 Intake and Output: 03/30/17 03/30/17 06:59 18:59 Intake Total 1600 Output Total 1250 Balance 350 - Medications Medications: Current Medications Acetaminophen (Tylenol 325mg Tab) 650 mg PO Q6 PRN PRN Reason: Fever >100.4 F Docusate Sodium (Colace) 100 mg PO BID [facility] Last Admin: 03/30/17 09:32 Dose: 100 mg Gabapentin (Neurontin) 300 mg PO BID [facility] Last Admin: 03/30/17 10:29 Dose: 300 mg Heparin Sodium (Porcine) (Heparin) 5,000 units SC Q12 [facility] Last Admin: 03/28/17 10:52 Dose: 5,000 units Azithromycin (Zithromax 500mg In Ns Addvantage) 500 mg in 250 mls @ 166.667 mls /hr IV STAT [facility] Metronidazole (Flagyl) 500 mg in 100 mls @ 100 mls/hr IVPB Q8H [facility] Last Admin: 03/30/17 10:15 Dose: 100 mls/hr Sodium Chloride (Sodium Chloride 0.9%) 1,000 mls @ 100 mls/hr IV .Q10H [facility] Last Admin: 03/30/17 14:43 Dose: Not Given Piperacillin Sod/Tazobactam Sod (Zosyn 3.375 Gm Iv Premix) 3.375 gm in 50 mls @ 100 mls/hr IVPB Q6H [facility] Last Admin: 03/30/17 08:21 Dose: 100 mls/hr Insulin Human Regular (Novolin R) 0 unit SC ACHS [facility] PRN Reason: Protocol Last Admin: 03/30/17 12:26 Dose: 2 unit Ondansetron HCl (Zofran Inj) 4 mg IVP DAILY@ONCE PRN PRN Reason: Nausea/Vomiting Oxycodone/Acetaminophen (Percocet 5/325 Mg Tab) 1 tab PO Q4H PRN PRN Reason: Pain, moderate (4-7) Stop: 04/02/17 07:03 Pantoprazole Sodium (Protonix Ec Tab) 40 mg PO DAILY [facility] Last Admin: 03/30/17 09:32 Dose: 40 mg - Labs Labs: 03/28/17 07:26 03/28/17 07:26 PT 13.0 SECONDS (9.7-12.2) H 03/27/17 07:00 INR 1.2 03/27/17 07:00 APTT 36 SECONDS (21-34) H 03/27/17 07:00 - Head Exam Head Exam: ATRAUMATIC, NORMOCEPHALIC - Eye Exam Eye Exam: Normal appearance - ENT Exam ENT Exam: Mucous Membranes Moist - Neck Exam Neck Exam: Normal Inspection - Respiratory Exam Respiratory Exam: Clear to Ausculation Bilateral - Cardiovascular Exam Cardiovascular Exam: REGULAR RHYTHM - GI/Abdominal Exam GI & Abdominal Exam: Soft, Normal Bowel Sounds - Extremities Exam Extremities Exam: Full ROM, Normal Inspection - Neurological Exam Neurological Exam: Alert, Oriented x3 Assessment and Plan (1) Leucocytosis Assessment & Plan: on antibiotics as per infectious disease No further diarrhea Denies shortness of breath, denies cough Denies abdominal pain Tolerating clear liquids and advanced to soft diet stable to go home once cleared by infectious disease Status: Acute (2) Abdominal pain Status: Acute (3) Small bowel obstruction Status: Acute
[2017-03-30 16:21] VITALS: BP 131/55; PULSE 53; TEMP 98.2; O2SAT 99
--- NOTE | 2017-03-30 16:21 | CP.PCM.PN ---
Subjective - Date & Time of Evaluation Date of Evaluation: 03/30/17 Time of Evaluation: 16:21 - Subjective Subjective: AFEBRILE STATES ABDOMINAL PAIN IMPROVED. TOLERATING ADVANCING DIET. DENIES ANY FURTHER DIARRHEA. DENIES NAUSEA VOMITING. DENIES COUGH/SHORTNESS OF BREATH. CXR PA/LAT -ORDERED-PENDING RESULTS. ALL CULTURES NEGATIVE TO DATE. LABS ;-REVIEWED AT BEDSIDE Objective - Vital Signs/Intake and Output Vital Signs (last 24 hours): Temp Pulse Resp BP Pulse Ox 98.2 F 53 L 20 131/55 L 99 03/30/17 16:19 03/30/17 16:19 03/30/17 16:19 03/30/17 16:19 03/30/17 16:19 Intake and Output: 03/30/17 03/30/17 06:59 18:59 Intake Total 1600 Output Total 1250 Balance 350 - Medications Medications: Current Medications Acetaminophen (Tylenol 325mg Tab) 650 mg PO Q6 PRN PRN Reason: Fever >100.4 F Docusate Sodium (Colace) 100 mg PO BID [facility] Last Admin: 03/30/17 09:32 Dose: 100 mg Gabapentin (Neurontin) 300 mg PO BID [facility] Last Admin: 03/30/17 10:29 Dose: 300 mg Heparin Sodium (Porcine) (Heparin) 5,000 units SC Q12 [facility] Last Admin: 03/28/17 10:52 Dose: 5,000 units Azithromycin (Zithromax 500mg In Ns Addvantage) 500 mg in 250 mls @ 166.667 mls /hr IV STAT [facility] Metronidazole (Flagyl) 500 mg in 100 mls @ 100 mls/hr IVPB Q8H [facility] Last Admin: 03/30/17 10:15 Dose: 100 mls/hr Sodium Chloride (Sodium Chloride 0.9%) 1,000 mls @ 100 mls/hr IV .Q10H [facility] Last Admin: 03/30/17 14:43 Dose: Not Given Piperacillin Sod/Tazobactam Sod (Zosyn 3.375 Gm Iv Premix) 3.375 gm in 50 mls @ 100 mls/hr IVPB Q6H [facility] Last Admin: 03/30/17 08:21 Dose: 100 mls/hr Insulin Human Regular (Novolin R) 0 unit SC ACHS [facility] PRN Reason: Protocol Last Admin: 03/30/17 12:26 Dose: 2 unit Ondansetron HCl (Zofran Inj) 4 mg IVP DAILY@ONCE PRN PRN Reason: Nausea/Vomiting Oxycodone/Acetaminophen (Percocet 5/325 Mg Tab) 1 tab PO Q4H PRN PRN Reason: Pain, moderate (4-7) Stop: 04/02/17 07:03 Pantoprazole Sodium (Protonix Ec Tab) 40 mg PO DAILY [facility] Last Admin: 03/30/17 09:32 Dose: 40 mg - Labs Labs: 03/28/17 07:26 03/28/17 07:26 PT 13.0 SECONDS (9.7-12.2) H 03/27/17 07:00 INR 1.2 03/27/17 07:00 APTT 36 SECONDS (21-34) H 03/27/17 07:00 - Constitutional Appears: No Acute Distress - Head Exam Head Exam: NORMAL INSPECTION - Eye Exam Eye Exam: EOMI, PERRL - ENT Exam ENT Exam: Normal Oropharynx - Neck Exam Neck Exam: Normal Inspection - Respiratory Exam Respiratory Exam: Clear to Ausculation Bilateral - Cardiovascular Exam Cardiovascular Exam: REGULAR RHYTHM, +S1, +S2 - GI/Abdominal Exam GI & Abdominal Exam: Soft, Tenderness (MILD DISCOMFORT LOWER QUADRANTS.), Normal Bowel Sounds - Extremities Exam Extremities Exam: Normal Capillary Refill. absent: Calf Tenderness, Pedal Edema - Neurological Exam Neurological Exam: Alert, Awake, CN II-XII Intact, Oriented x3, Reflexes Normal - Psychiatric Exam Psychiatric exam: Normal Mood - Skin Skin Exam: Normal Color, Warm Assessment and Plan (1) Sepsis Assessment & Plan: BLOOD CULTURES -VE URINE CULTURE -VE GROWTH CXR - OFFICIAL REPORT PENDING BUT APPEARS NORMAL. OKAY TO dc iv ANTIBIOTICS. Status: Acute (2) Abdominal pain Assessment & Plan: PATIENT ANXIOUS TO GO HOME. LABS REVIEWED. SOURCE OF ABDOMINAL PAIN AND LEUKOCYTOSIS IS MOST LIKELY COLITIS THOUGH STOOLS C. DIFFICILE NEGATIVE. DC iv ZOSYN 3.375 EVERY 8 HOURLY.03/27/17. DC iv fLAGYL 500 EVERY 8 HOURLY. 03/27/17. SWITCH TO PO FLAGYL 250MG TID X 3 DAYS MORE . Status: Acute (3) Leucocytosis Assessment & Plan: IMPROVED H/H STABLE Status: Acute (4) Pneumonia Status: Acute
[2017-03-30 16:59] LABS: BASO % 0.1 % (0.0-2.0); EOS # 0.3 K/uL (0.0-0.7); EOS % 3.8 % (0.0-4.0); HEMATOCRIT 35.4 % (35.0-51.0); LYMPH # 1.1 K/uL (1.0-4.3); LYMPH % 16.4 % (20.0-40.0); MEAN CORPUSCULAR HEMOGLOBIN 30.2 pg (27.0-31.0); MEAN CORPUSCULAR HGB CONC 33.2 g/dL (33.0-37.0); MEAN PLATELET VOLUME 8.2 fL (7.2-11.7); MONO # 0.8 K/uL (0.0-0.8); MONO % 11.5 % (0.0-10.0); RED CELL DISTRIBUTION WIDTH 13.1 % (11.5-14.5); WHITE BLOOD COUNT 6.8 K/uL (4.8-10.8)
[2017-03-30 17:08] LABS: CHLORIDE 102 mmol/L (98-107); POTASSIUM 3.7 mmol/L (3.6-5.2); SODIUM 134 mmol/L (132-148)
[2017-03-30 17:11] LABS: BLOOD UREA NITROGEN 12 mg/dL (9-20); CARBON DIOXIDE 21 mmol/L (22-30); GFR AFRICAN-AMERICAN > 60; GLUCOSE,RANDOM 162 mg/dL (75-110)
--- NOTE | 2017-03-31 08:57 | RAD ---
Chest x-ray two views History: Right lower lobe pneumonia. Comparison: 03/27/2017 Findings Persistent consolidative opacities at the right lung base laterally which may represent infiltrate versus atelectasis versus scarring. Clinical correlation. Persistent blunting of the right costophrenic angle which may represent some pleural thickening and or trace effusion. Biapical pleural thickening with upper lobe granulomatous changes. Mild venous congestion. Right hilar prominence. Right midlung atelectasis. Tortuous aorta. Degenerative changes in the spine. Mild cardiomegaly. Impression: Persistent consolidative opacities at the right lung base laterally which may represent infiltrate versus atelectasis versus scarring. Clinical correlation. Persistent blunting of the right costophrenic angle which may represent some pleural thickening and or trace effusion.
--- NOTE | 2017-04-07 07:32 | CARD ---
APPROVED REPORT EKG Measurement Heart [id number] <Conclusion> Atrial fibrillation Abnormal ECG
--- NOTE | 2017-04-07 07:39 | CP.PCM.DIS ---
Provider - Provider Date of Admission: 03/27/17 13:54 Attending physician: Kandace Martinez MD Consults: Dr POLY ALVAREZ Time Spent in preparation of Discharge (in minutes): 40 Diagnosis - Discharge Diagnosis (1) Leucocytosis Status: Acute (2) Abdominal pain Status: Acute (3) Small bowel obstruction Status: Acute Hospital Course - Lab Results Lab Results: Micro Results 03/28/17 03:00 Stool Stool Culture - Final NO SALMONELLA, SHIGELLA OR CAMPYLOBACTER ISOLATED. Most Recent Lab Values WBC 6.8 K/uL (4.8-10.8) 03/30/17 16:51 RBC 3.89 Mil/uL (4.40-5.90) L 03/30/17 16:51 Hgb 11.7 g/dL (12.0-18.0) L 03/30/17 16:51 Hct 35.4 % (35.0-51.0) 03/30/17 16:51 MCV 91.0 fL (80.0-94.0) 03/30/17 16:51 MCH 30.2 pg (27.0-31.0) 03/30/17 16:51 MCHC 33.2 g/dL (33.0-37.0) 03/30/17 16:51 RDW 13.1 % (11.5-14.5) 03/30/17 16:51 Plt Count 180 K/uL (130-400) 03/30/17 16:51 MPV 8.2 fL (7.2-11.7) 03/30/17 16:51 Neut % (Auto) 68.2 % (50.0-75.0) 03/30/17 16:51 Lymph % (Auto) 16.4 % (20.0-40.0) L 03/30/17 16:51 [place] % (Auto) 11.5 % (0.0-10.0) H 03/30/17 16:51 Eos % (Auto) 3.8 % (0.0-4.0) 03/30/17 16:51 Baso % (Auto) 0.1 % (0.0-2.0) 03/30/17 16:51 Neut # 4.6 K/uL (1.8-7.0) 03/30/17 16:51 Lymph # 1.1 K/uL (1.0-4.3) 03/30/17 16:51 [place] # 0.8 K/uL (0.0-0.8) 03/30/17 16:51 Eos # 0.3 K/uL (0.0-0.7) 03/30/17 16:51 Baso # 0.0 K/uL (0.0-0.2) 03/30/17 16:51 Neutrophils % (Manual) 68 % (50-75) 03/27/17 07:00 Band Neutrophils % 17 % (0-2) H* 03/27/17 07:00 Lymphocytes % (Manual) 6 % (20-40) L 03/27/17 07:00 Monocytes % (Manual) 8 % (0-10) 03/27/17 07:00 Eosinophils % (Manual) 1 % (0-4) 03/27/17 07:00 Platelet Estimate Normal (NORMAL) 03/27/17 07:00 RBC Morphology Normal 03/27/17 07:00 PT 13.0 SECONDS (9.7-12.2) H 03/27/17 07:00 INR 1.2 03/27/17 07:00 APTT 36 SECONDS (21-34) H 03/27/17 07:00 pO2 25 mm/Hg (30-55) L 03/27/17 08:50 VBG pH 7.28 (7.32-7.43) L 03/27/17 08:50 VBG pCO2 61 mmHg (40-60) H 03/27/17 08:50 VBG HCO3 23.7 mmol/L 03/27/17 08:50 VBG Total CO2 30.6 mmol/L (22-28) H 03/27/17 08:50 VBG O2 Sat (Calc) 42.8 % (40-65) 03/27/17 08:50 VBG Base Excess 0.5 mmol/L (0.0-2.0) 03/27/17 08:50 VBG Potassium 4.1 mmol/L (3.6-5.2) 03/27/17 08:50 Sodium 137.0 mmol/l (132-148) 03/27/17 08:50 Chloride 100.0 mmol/L (98-107) 03/27/17 08:50 Glucose 251 mg/dl (75-110) H 03/27/17 08:50 Lactate 2.1 mmol/L (0.7-2.1) 03/27/17 08:50 Sodium 134 mmol/L (132-148) 03/30/17 16:51 Potassium 3.7 mmol/L (3.6-5.2) 03/30/17 16:51 Chloride 102 mmol/L (98-107) 03/30/17 16:51 Carbon Dioxide 21 mmol/L (22-30) L 03/30/17 16:51 Anion Gap 15 (10-20) 03/30/17 16:51 BUN 12 mg/dL (9-20) 03/30/17 16:51 Creatinine 0.9 MG/DL (0.8-1.5) 03/30/17 16:51 Est GFR ( Amer) > 60 03/30/17 16:51 Est GFR (Non-Af Amer) > 60 03/30/17 16:51 POC Glucose (mg/dL) 188 mg/dL (65-110) H 03/30/17 16:04 Random Glucose 162 mg/dL (75-110) H 03/30/17 16:51 Calcium 7.0 mg/dl (8.6-10.4) L 03/30/17 16:51 Total Bilirubin 1.1 mg/dL (0.2-1.3) 03/28/17 07:26 AST 41 U/L (17-59) 03/28/17 07:26 ALT 37 U/L (21-72) 03/28/17 07:26 Alkaline Phosphatase 40 U/L (38-126) 03/28/17 07:26 Total Protein 6.1 g/dL (6.3-8.3) L 03/28/17 07:26 Albumin 3.1 g/dL (3.5-5.0) L D 03/28/17 07:26 Globulin 3.0 gm/dL (2.2-3.9) 03/28/17 07:26 Albumin/Globulin Ratio 1.0 (1.0-2.1) 03/28/17 07:26 Lipase 49 U/L (23-300) 03/27/17 07:00 Venous Blood Potassium 4.1 mmol/L (3.6-5.2) 03/27/17 08:50 Urine Color Yellow (YELLOW) 03/27/17 07:51 Urine Clarity Clear (Clear) 03/27/17 07:51 Urine pH 5.0 (5.0-8.0) 03/27/17 07:51 Ur Specific [place] 1.013 (1.003-1.030) 03/27/17 07:51 Urine Protein Negative mg/dL (NEGATIVE) 03/27/17 07:51 Urine Glucose (UA) 3+ mg/dL (Normal) H 03/27/17 07:51 Urine Ketones Negative mg/dL (NEGATIVE) 03/27/17 07:51 Urine Blood 1+ (NEGATIVE) H 03/27/17 07:51 Urine Nitrate Negative (NEGATIVE) 03/27/17 07:51 Urine Bilirubin Negative (NEGATIVE) 03/27/17 07:51 Urine Urobilinogen Normal mg/dL (0.2-1.0) 03/27/17 07:51 Ur Leukocyte Esterase Neg Saúl/uL (Negative) 03/27/17 07:51 Urine WBC (Auto) 1 /hpf (0-5) 03/27/17 07:51 Urine RBC (Auto) 1 /hpf (0-3) 03/27/17 07:51 Ur Squamous Epith Cells < 1 /hpf (0-5) 03/27/17 07:51 Hyaline Casts 6-10 /lpf (0-2) H 03/27/17 07:51 Stool Occult Blood Positive (NEGATIVE) H 03/28/17 12:07 Stool Leukocytes, Qual Negative (NEGATIVE) 03/27/17 03:00 Digoxin < 0.4 ng/mL (0.8-2.0) L 03/27/17 08:25 C. difficile Ag & Toxin Negative (NEGATIVE) 03/27/17 03:00 - Hospital Course Hospital Course: 77-year-old male with history of colon cancer status post left hemicolectomy in 2003 and lysis of adhesions 4 years ago, history of atrial fibrillation, diabetes, hypertension, hyperlipidemia presented to emergency room with abdominal pain that started last night associated with vomiting once in the morning. CAT scan of the abdomen consistent with early small bowel obstruction/ ileus. Patient states that he is able to pass flatus. Denies cough, denies fever chills, denies night sweats.patient seen by surgery. patient also found to have elevated white count with bands MedHx: Colon CA, Afib, DM, gastritis, HTN, HLD SurgHx: Partial colon resection, ex-lap/w XIMENA FamHx: unknown Allergies: NKDA social history: no history of smoking or drinking Discharge Exam - Head Exam Head Exam: NORMAL INSPECTION - Eye Exam Eye Exam: Normal appearance - Respiratory Exam Respiratory Exam: Clear to PA & Lateral - Cardiovascular Exam Cardiovascular Exam: REGULAR RHYTHM - GI/Abdominal Exam GI & Abdominal Exam: Normal Bowel Sounds - Extremities Exam Extremities exam: normal inspection - Neurological Exam Neurological exam: Alert, Oriented x3 Discharge Plan - Follow Up Plan Condition: FAIR Disposition: HOME/ ROUTINE Patient education suggested?: Yes Instructions: Aspiration Pneumonia (DC), Acute Abdominal Pain (DC), Leukocytosis (DC) Referrals: Kandace Martinez MD [Medical Doctor] -
--- NOTE | 2017-04-07 11:22 | PQF SEPSIS ---
This form is a permanent part of the medical record DR. MALDONADO, Please clarify if this patient was treated for Septicemia/sepsis. [place] notes states sepsis. Also, Clarify if patient had pneumonia on this admission. Thank you. Clarification of your documentation is requested to better reflect the severity of illness and intensity of treatment of your patient. Indicators present [] Temp < 96.8 or > 100.4 [XX] WBC count > 12,000/mm3 or <000/mm3 or 10% immature neutrophils [] Heart Rate > 90 [] Respiratory Rate > 20 [] Fever or hypothermia [] Chills [] Positive blood cultures [] Hypotension [] Metabolic acidosis (Elevated lactate level, anion gap or reduced blood pH) [] Acute confusion /Altered Mental Status [] Shock [] Other: [] Location in the medical record that reflects the above clinical findings: [ Progress Notes] Treatment Provided: [] PHYSICIAN'S RESPONSE Pt had pneumonia Based on your medical judgment of the clinical indicators outlined above, are you treating this patient for a known or suspected: [] Sepsis / Septicemia Please specify organism if known [] [x] SIRS (Systemic Inflammatory Response Syndrome) [] Severe Sepsis (Sepsis with Associated Organ Dysfunction) [] Fever of Unknown Origin [] Other, please indicate: [] [] If Unable to Determine, please check the box, sign and date. Present On Admission (POA) Indicator: [x] Present at the time of admission [] Not present at the time of admission [] Clinically Undetermined In responding to this query, please exercise your independent professional judgment. The fact that a question is asked does not imply that any particular answer is desired or expected. Thank you for your clarification on this documentation. If you have any questions please call:[ ] * Thank you, [ ] prosecuting attorney ROLANDO
== END 2017-03-30 20:40 | disposition home health service (06) | DRG 388 ==
LOC: C.ER 06:28 → C.9OBSV 10:52 → OBSVTOIN 13:54 → C.9E 13:54 → C.3T 14:39 → UNDODISIN 03-30 18:37
PROVIDERS: ADMIT Internal Medicine; ATTEND Internal Medicine
DX: K56.7 Ileus, unspecified (principal); J18.9 Pneumonia, unspecified organism; I48.91 Unspecified atrial fibrillation; E10.9 Type 1 diabetes mellitus without complications; I10 Essential (primary) hypertension; E78.5 Hyperlipidemia, unspecified; K29.70 Gastritis, unspecified, without bleeding; K80.20 Calculus of gallbladder without cholecystitis without obstruction; E78.00 Pure hypercholesterolemia, unspecified; Z87.891 Personal history of nicotine dependence; Z85.038 Personal history of other malignant neoplasm of large intestine; Z90.49 Acquired absence of other specified parts of digestive tract

== ENCOUNTER 2017-05-26 06:44 | Inpatient (IN) | payer MEDICARE ==
[2017-05-26] MEDS ORDERED: Belladonna-Phenobarbital PO STA (07:22)
[2017-05-26] MEDS ORDERED: Sodium Chloride 0.9% 500 ML IV ONE ×2 (07:22→09:21)
[2017-05-26] MEDS ORDERED: Aluminum Hydroxide/Magnesium Hydroxide Susp (30 mL) PO STA (07:22)
[2017-05-26] MEDS ORDERED: Aluminum Hydroxide/Magnesium Hydroxide Susp (30 mL) ONE (07:30)
[2017-05-26] MEDS ORDERED: Belladonna-Phenobarbital ONE (07:30)
--- NOTE | 2017-05-26 07:35 | C.PDOC ---
History Of Present Illness 77 year old male with a history of Diverticulitis, Colon CA, colon resection, and obstruction presents to the ED with complaints of abdominal pain and three episodes of vomiting beginning last night after dinner. As per patient's family , patient also has history of Diabetes and neuropathy. Patient denies bowel movement since the symptoms began and denies fever or other complaints at this time. Time Seen by Provider: 05/26/17 07:11 Chief Complaint (Nursing): Abdominal Pain History Per: Patient, Family History/Exam Limitations: no limitations Onset/Duration Of Symptoms: Hrs (began after dinner last night ) Current Symptoms Are (Timing): Still Present Location Of Pain/Discomfort: Diffuse Radiation Of Pain To:: None Quality Of Discomfort: "Pain" Associated Symptoms: Vomiting. denies: Fever, Chills, Diarrhea Last Bowel Movement: Yesterday Recent travel outside of the [place]: No Additional History Per: Prior Records Past Medical History Reviewed: Historical Data, Nursing Documentation, Vital Signs Vital Signs: Last Vital Signs Temp 97.5 F L 05/26/17 06:56 Pulse 95 H 05/26/17 12:17 Resp 16 05/26/17 12:17 BP 114/61 05/26/17 12:17 Pulse Ox 100 05/26/17 12:17 - Medical History PMH: Arthritis, Atrial Fibrillation, Cardia Arrhythmia, Diabetes, 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), Gastritis, HTN, Hypercholesterolemia Surgical History: Appendectomy, Coronary Stent, Tonsillectomy - [facility] Procedures CLOSED ENDOSCOPIC BIOPSY OF LARGE INTESTINE (06/01/14) OTH LYSIS-PERITONEAL ADHES (04/10/13) REVISE SM BOWEL ANASTOM (04/10/13) Family History: States: Unknown Family Hx - Social History Hx Tobacco Use: No Hx Alcohol Use: No Hx Substance Use: No - Immunization History Hx Tetanus Toxoid Vaccination: Yes Hx Influenza Vaccination: Yes Hx Pneumococcal Vaccination: Yes Review Of Systems Constitutional: Negative for: Fever, Chills Cardiovascular: Negative for: Chest Pain Respiratory: Negative for: Shortness of Breath Gastrointestinal: Positive for: Vomiting, Abdominal Pain. Negative for: Diarrhea Physical Exam - Physical Exam Appears: Non-toxic, No Acute Distress Skin: Warm, Dry Head: Atraumatic Eye(s): bilateral: Normal Inspection, PERRL, EOMI Oral Mucosa: Moist Neck: Supple Chest: Symmetrical, No Deformity Cardiovascular: Other (Atrial fibrillation 100 bpm) Respiratory: Normal Breath Sounds, No Rhonchi, No Wheezing Gastrointestinal/Abdominal: Soft, Tenderness (diffuse tenderness ), No Distention, No Guarding, No Rebound Rectal: Normal Exam, Other (soft stool, no gross blood) Neurological/Psych: Oriented x3 ED Course And Treatment - Laboratory Results Result Diagrams: 05/26/17 07:59 05/26/17 07:59 ECG Rhythm: Atrial Fibrillation (100 BPM) O2 Sat by Pulse Oximetry: 97 (room air ) - CT Scan/US CT Abdomen and Pelvis with Oral and IV contrast Other Rad Studies (CT/US): Read By Radiologist, Radiology Report Reviewed CT/US Interpretation: IMPRESSION: Dilated fluid-filled loops of small bowel without clear transition point however evidence of decompressed bowel loops in the right lower quadrant ; overall appearance worrisome for small bowel obstruction. Ileus is not excluded. Correlate clinically. Cholelithiasis. Bilateral low-density renal lesions which are too small to characterize, statistically likely cysts. Hepatic steatosis. Right-sided pleural plaque, suggesting asbestos related pleural disease. Additional findings as above. Progress Note: Multiple calls made to Dr. Torres and medical surgical tech, pending call back. Disposition Discussed With .: Carlos Sharp Doctor Will See Patient In The: Hospital Counseled Patient/Family Regarding: Studies Performed - Disposition Disposition: HOSPITALIZED Disposition Time: 10:20 - POA Present On Arrival: None - Clinical Impression Clinical Impression: Small bowel obstruction - Scribe Statement The provider has reviewed the documentation as recorded by the Scribe Kori Duenas All medical record entries made by the Scribe were at my direction and personally dictated by me. I have reviewed the chart and agree that the record accurately reflects my personal performance of the history, physical exam, medical decision making, and the department course for this patient. I have also personally directed, reviewed, and agree with the discharge instructions and disposition. Decision To Admit - Pt Status Changed To: Hospital Disposition Of: Inpatient - Admit Certification Admit to Inpatient:: After my assessment, the patient will require hospitalization for at least two midnights. This is because of the severity of symptoms shown, intensity of services needed, and/or the medical risk in this patient being treated as an outpatient. - InPatient: Physician Admission Certification:: partial SBO - . Bed Request Type: Regular Admitting Physician: Carlos Sharp Patient Diagnosis: Small bowel obstruction
[2017-05-26 08:06] LABS: BASO % 0.2 % (0.0-2.0); EOS # 0.1 K/uL (0.0-0.7); EOS % 0.3 % (0.0-4.0); LYMPH # 0.6 K/uL (1.0-4.3); LYMPH % 2.8 % (20.0-40.0); MEAN CORPUSCULAR HEMOGLOBIN 30.8 pg (27.0-31.0); MEAN CORPUSCULAR HGB CONC 33.5 g/dL (33.0-37.0); MEAN PLATELET VOLUME 8.2 fL (7.2-11.7); MONO # 1.2 K/uL (0.0-0.8); MONO % 5.6 % (0.0-10.0); NEUT # 19.3 K/uL (1.8-7.0); NEUT % 91.1 % (50.0-75.0); PLATELET COUNT 262 K/uL (130-400); RBC 5.45 Mil/uL (4.40-5.90); RED CELL DISTRIBUTION WIDTH 13.8 % (11.5-14.5)
[2017-05-26 08:09] LABS: HEMOGLOBIN 16.8 g/dL (12.0-18.0); WHITE BLOOD COUNT 21.2 K/uL (4.8-10.8)
[2017-05-26 08:10] LABS: URINE BILIRUBIN NEGATIVE (NEGATIVE); URINE BLOOD NEGATIVE (NEGATIVE); URINE CLARITY Clear (Clear); URINE COLOR Yellow (YELLOW); URINE GLUCOSE (UA) 3+ mg/dL (Normal); URINE LEUKOCYTE ESTERASE NEG Leu/uL (Negative); URINE NITRATE NEGATIVE (NEGATIVE); URINE PROTEIN 1+ mg/dL (NEGATIVE); URINE UROBILINOGEN NORMAL mg/dL (0.2-1.0)
[2017-05-26 08:39] LABS: TOTAL CELLS COUNTED 100
[2017-05-26 08:40] LABS: BANDS 6 % (0-2); LYMPHOCYTE 3 % (20-40); MONOCYTE 6 % (0-10); NEUTROPHIL 85 % (50-75); PLATELET ESTIMATE NORMAL (NORMAL)
[2017-05-26 08:44] LABS: ALBUMIN 4.9 g/dL (3.5-5.0)
[2017-05-26 08:47] LABS: ALB/GLOB RATIO 0.9 (1.0-2.1); CALCIUM 10.5 mg/dl (8.6-10.4)
[2017-05-26] MEDS ORDERED: Iohexol 240 (50 ml) PO STA (09:19)
[2017-05-26] MEDS ORDERED: Piperacillin/Tazobact 3.375 gm 100 ML IV STA (09:21)
[2017-05-26] MEDS ORDERED: Iohexol 240 (50 ml) ONE (09:27)
[2017-05-26] MEDS ORDERED: Piperacillin/Tazobact 3.375 gm 100 ML IVPB ONE (09:27)
[2017-05-26] MEDS ORDERED: Vancomycin 1 GM 1 GM/250 ML BAG IV STA (09:36)
--- NOTE | 2017-05-26 10:04 | RAD ---
PROCEDURE: Radiographs of the chest and abdomen (obstructive series) HISTORY: abd pain COMPARISON: 01/02/2014 obstructive series. Subsequent abdominal flat plate subsequent CT abdomen 03/27/2017 also noted TECHNIQUE: AP radiograph of the chest, with upright and supine radiographs of the abdomen. FINDINGS: CHEST: Lungs: The linear opacity right lung base lateral consist with pleural parenchymal pathology is similar-appearing. No interval lung base pathology suggested Cardiovascular: Normal size heart. No pulmonary vascular congestion. Pleura: No pleural fluid. No pneumothorax. Other findings: None. ABDOMEN AND PELVIS: Bowel: Multiple mid to distal left-sided mildly dilated small bowel loops with air-fluid levels are noted and re- suggested. Right colonic stool moderate stool retention present no subdiaphragmatic free air Free air: None. Bones: Unremarkable. Other findings: Multiple surgical clips and sutures present central pelvis and projecting over the right iliac crest multiple tiny faceted gallstones in the right upper quadrant are noted IMPRESSION: Findings consistent with a early or partial or intermittent mid to distal small bowel obstruction. Conceivably a focal ileitis is not excluded. No free air suggested. Extensive postop changes Gallstones Linear/bandlike pathology at the right lung base - similar-appearing
[2017-05-26] MEDS ORDERED: Vancomycin 1 GM 1 GM/250 ML BAG IVPB ONE (10:08)
--- NOTE | 2017-05-26 12:28 | CP.PCM.CON ---
History of Present Illness - History of Present Illness History of Present Illness: CC: Abdominal Pain Surgery Consulted for small bowel obstruction HPI: Patient is a 77 year old male with significant past medical history of right colon cancer, HTN, HLD, A.fibrillation, diverticulitis, gastritis who presents to the ED with nausea, vomiting, and abdominal pain for the last 14 hours. Symptoms began last night around 2 am. Patient's pain is a 7 out of 10 currently at bedside and a 10/10 at its worst. Patient describes his abdominal pain as cramping that is localized to the lower two quadrants of the abdomen without any radiation. Patient's pain is exacerbated with food. The patient has taken lactulose as a possible remedy but had no relief. Patient denies fever, chills, palpitations, SOB, diarrhea. He states he has had two bowel movements prior to ER visit but they were a firm consistency, denies blood or mucous in stool. His vomit was a brown color with the presence of undigested food. PMD: Dr. Gonzalez PMHx: Right colon cancer, HTN, HLD, A.fibrillation, diverticulitis, gastritis PSHx: Right colon resection, Cardiac catherization with stent placement in the LAD, Lysis of adhesion, surgical intervention for diverticulitis, Appendectomy, Tonsillectomy, Repair deviated septum Medication: Xarelto 20mg PO daily, Casanthranol/Docusate Sodium, Digoxin 0.25mg PO daily, Duloxetine 60mg PO daily, Vytorin 1 TAB PO daily, Gabapentin 300mg PO TID, Lantus 30 units SC HS, Humalog 25 units SC HS, Lactulose 20gm/30ml PO daily , Cozaar 50mg PO daily and Toprol XL 25mg PO daily Allergies: NKDA Social History: Lives with . Denies Tobacco, ETOH and Illicit Drug use Review of Systems - Constitutional Constitutional: Chills, Fatigue, Weakness. absent: Fever, Headache - EENT Ears: Dizziness - Cardiovascular Cardiovascular: Diaphoresis, Lightheadedness. absent: Chest Pain, Chest Pain at Rest, Dyspnea, Palpitations, Syncope - Respiratory Respiratory: absent: Dyspnea, Dyspnea on Exertion - Gastrointestinal Gastrointestinal: Abdominal Pain, Bloating, Cramping, Nausea, Vomiting. absent : Diarrhea - Genitourinary Genitourinary: absent: Change in Urinary Stream, Difficulty Urinating, Pyuria, Urinary Frequency, Urinary Hesitance - Neurological Neurological: Dizziness, Weakness. absent: Headaches, Syncope - Endocrine Endocrine: Fatigue. absent: Palpitations Past Patient History - Infectious Disease Hx of Infectious Diseases: None - Past Medical History & Family History Past Medical History?: Yes - Past Social History Smoking Status: Never Smoked - CARDIAC Hx Atrial Fibrillation: Yes Hx Cardia Arrhythmia: Yes Hx Hypercholesterolemia: Yes Hx Hypertension: Yes - PULMONARY Hx Respiratory Disorders: No - NEUROLOGICAL Hx Neurological Disorder: Yes Other/Comment: NEUROPATHY - HEENT Hx HEENT Problems: Yes Other/Comment: HX DEVIATED SEPTUM - RENAL Hx Chronic Kidney Disease: No - ENDOCRINE/METABOLIC Hx Endocrine Disorders: Yes Hx Diabetes Mellitus Type 1: Yes Hx Diabetes Mellitus Type 2: Yes - HEMATOLOGICAL/ONCOLOGICAL Hx Blood Disorders: Yes Hx Blood Transfusions: Yes Hx Cancer: Yes (COLON) Hx Chemotherapy: Yes (,2003) - INTEGUMENTARY Hx Dermatological Problems: No - MUSCULOSKELETAL/RHEUMATOLOGICAL Hx Arthritis: Yes - GASTROINTESTINAL 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) Hx Gastritis: Yes - GENITOURINARY/GYNECOLOGICAL Hx Genitourinary Disorders: No - PSYCHIATRIC Hx Substance Use: No - SURGICAL HISTORY Hx Appendectomy: Yes Hx Coronary Stent: Yes Hx Tonsillectomy: Yes - ANESTHESIA Hx Anesthesia: Yes Hx Anesthesia Reactions: No Hx Malignant Hyperthermia: No Meds Allergies/Adverse Reactions: Allergies Allergy/AdvReac Type Severity Reaction Status Date / Time No Known Allergies Allergy Verified 05/26/17 07:00 Physical Exam - Constitutional Appears: No Acute Distress - Head Exam Head Exam: ATRAUMATIC, NORMAL INSPECTION - Eye Exam Eye Exam: EOMI, Normal appearance - Respiratory Exam Respiratory Exam: Clear to Auscultation Bilateral, NORMAL BREATHING PATTERN - Cardiovascular Exam Cardiovascular Exam: Irregular Rhythm, +S1, +S2 - GI/Abdominal Exam GI & Abdominal Exam: Distended, Soft, Tenderness Additional comments: B/L lower quadrant tenderness - Rectal Exam Rectal Exam: Fecal Impaction - Extremities Exam Extremities exam: Positive for: normal capillary refill, normal inspection. Negative for: pedal edema - Neurological Exam Neurological exam: Alert, Oriented x3 - Psychiatric Exam Psychiatric exam: Normal Affect, Normal Mood Results - Vital Signs Recent Vital Signs: Last Vital Signs Temp 97.5 F L 05/26/17 06:56 Pulse 95 H 05/26/17 10:41 Resp 18 05/26/17 10:41 BP 132/69 08/01/17 10:41 Pulse Ox 99 05/26/17 10:41 - Labs Result Diagrams: 05/26/17 07:59 05/26/17 07:59 Assessment & Plan (1) Small bowel obstruction Assessment and Plan: 77 year old male who presents with abdominal pain, nausea, vomiting with abdomen obstructive series findings consistent with a early or partial or intermittent mid to distal small bowel obstruction. Plan: * NPO * Nasogastric tube to decompress the bowel * IV Fluids * Anti-emetics * Fleet enema for fecal impaction * F/u CT scan and will re-evaluate for surgical management Status: Acute
[2017-05-26] MEDS ORDERED: Iodixanol 320 MG/ML 100 ML BOTTLE IV ONE (12:30)
[2017-05-26] MEDS ORDERED: Sodium Chloride 0.9% 1,000 ML IV SCH (13:00)
--- NOTE | 2017-05-26 13:41 | CT ---
PROCEDURE: CT Abdomen and Pelvis with oral and IV contrast. HISTORY: obstruction COMPARISON: CT abdomen and pelvis performed 03/27/17 TECHNIQUE: Contiguous axial images of the abdomen and pelvis. Oral and IV contrast was administered. Coronal and Sagittal reformats generated and reviewed. Contrast dose: 100 cc Visipaque 320 Radiation dose: Total exam DLP = 315.37 MGy-cm. This CT exam was performed using one or more of the following dose reduction techniques: Automated exposure control, adjustment of the mA and/or kV according to patient size, and/or use of iterative reconstruction technique. FINDINGS: LOWER THORAX: No visible consolidation, pleural effusion, or pneumothorax. Partially imaged borderline cardiomegaly. Coronary artery calcifications. Right-sided pleural plaques. Small hiatal hernia and evidence of gastroesophageal reflux. LIVER: Hypoattenuation of the liver compatible with hepatic steatosis. GALLBLADDER AND BILE DUCTS: Cholelithiasis. PANCREAS: Atrophy. SPLEEN: Unremarkable. ADRENALS: Unremarkable. KIDNEYS AND URETERS: The kidneys enhance symmetrically. No hydronephrosis or obstructing renal calculus. Bilateral low-density renal lesions which are too small to characterize, statistically likely cysts. BLADDER: The urinary bladder appears unremarkable. REPRODUCTIVE: Unremarkable. APPENDIX: Not visualized. No secondary signs of acute appendicitis. BOWEL: The stomach is nondistended. Dilated fluid-filled loops of small bowel without clear transition point identified, however evidence of decompressed small bowel loops in the right lower quadrant. Correlate clinically. Anastomotic bowel suture material noted at the level the right colon as well as the rectum. Scattered diverticula. Oral contrast is not seen within the colon. PERITONEUM: No significant free fluid. No definite free air. LYMPH NODES: No bulky lymphadenopathy identified. VASCULATURE: No aortic aneurysm. BONES: No acute osseous abnormality is detected. OTHER FINDINGS: None. IMPRESSION: Dilated fluid-filled loops of small bowel without clear transition point however evidence of decompressed bowel loops in the right lower quadrant ; overall appearance worrisome for small bowel obstruction. Ileus is not excluded. Correlate clinically. Cholelithiasis. Bilateral low-density renal lesions which are too small to characterize, statistically likely cysts. Hepatic steatosis. Right-sided pleural plaque, suggesting asbestos related pleural disease. Additional findings as above.
[2017-05-26 14:18] VITALS: RESP 20
[2017-05-26] MEDS ORDERED: Heparin25000 units/250ml 1/2NS 25,000 UNITS/250 ML BAG IV PRN ×4 (16:10→19:02)
[2017-05-26] MEDS ORDERED: (Novolin R) Insulin Human Regular 100 units/ml vial SC SCH ×2 (16:30→19:15)
[2017-05-26] MEDS ORDERED: (Novolog) Insulin Aspart, Recombinant 100 u/ml 10 ml vial SC SCH (16:58)
--- NOTE | 2017-05-26 17:24 | CP.PCM.HP ---
Addendum entered and electronically signed by Margarito Freeman DO 05/26/17 19:12 : Patient has a leukocytosis of 21.2. He is being treated empirically with Zosyn 2.25gm. Patient home medication of lipitor 10mg daily changed to crestor 5mg daily Original Note: <Margarito Freeman - Last Filed: 05/26/17 18:00> History of Present Illness - History of Present Illness History of Present Illness: PGY [address] Sharp Mr. Carvajal is a 77 year old male with a past history of colon cancer, L hemicolectomy, obstruction, hypertension, hyperlipidemia, atrial fibrillation, diverticulitis and gastritis presented to the ED with abdominal pain after vomiting around midnight last night. Patient describes the pain as "throbbing" with intermittent cramps. At its worst, the pain is 10/10 and it is presently 7/10. Patient states that this pain is similar to previous episodes he's experienced. Patient states that he has had multiple small bowel obstructions in the past, with the last one being on March 27, 2017. Patient denies any radiation. Patient tried lactulose last night after the onset of the pain and vomited shortly thereafter. Patient describes the vomitus as "brown liquid" with recognizable pieces of his evening meal. Patient denies hematemesis , diarrhea, chest pain, shortness of breath, dysuria and recent illness. He accompanied by his who answers most of his questions due to better handle of the frisian language. PMHx: Colon Cancer, Diabetes, Hypertension, Hyperlipidemia, Atrial fibrillation , CAD,Diverticulitis, Gastritis, Small bowel obstruction PSHx: L Hemicolectomy, appendectomy, lysis of adhesions, partial bowel resection for diverticulitis, cardiac stent in LAD, tonsillectomy, deviated septum repair Family Hx: both parents - unknown medical history; brother with DM type 2 Social Hx: 1 cig/day x 4 years, denies EtOH, or illicit drug use ALL: NKDA Present on Admission - Present on Admission Any Indicators Present on Admission: Yes History of Uncontrolled Diabetes: Yes Urinary Catheter: No Decubitus Ulcer Present: No Review of Systems - Review of Systems All systems: reviewed and no additional remarkable complaints except Past Patient History - Infectious Disease Hx of Infectious Diseases: None - Past Medical History & Family History Past Medical History?: Yes - Past Social History Smoking Status: 1 cig/day x 4 years Alcohol: None Drugs: Denies Home Situation {Lives}: With Family - CARDIAC Hx Atrial Fibrillation: Yes Hx Cardia Arrhythmia: Yes Hx Hypercholesterolemia: Yes Hx Hypertension: Yes Other/Comment: Stent in LAD - PULMONARY Hx Respiratory Disorders: No - NEUROLOGICAL Hx Neurological Disorder: Yes Other/Comment: NEUROPATHY - HEENT Hx HEENT Problems: Yes Other/Comment: HX DEVIATED SEPTUM - RENAL Hx Chronic Kidney Disease: No - ENDOCRINE/METABOLIC Hx Endocrine Disorders: Yes Hx Diabetes Mellitus Type 1: Yes Hx Diabetes Mellitus Type 2: Yes - HEMATOLOGICAL/ONCOLOGICAL Hx Blood Disorders: Yes Hx Blood Transfusions: Yes Hx Cancer: Yes (COLON) Hx Chemotherapy: Yes (,2003) - INTEGUMENTARY Hx Dermatological Problems: No - MUSCULOSKELETAL/RHEUMATOLOGICAL Hx Arthritis: Yes Hx Falls: No - GASTROINTESTINAL 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) Hx Gastritis: Yes - GENITOURINARY/GYNECOLOGICAL Hx Genitourinary Disorders: No - PSYCHIATRIC Hx Substance Use: No - SURGICAL HISTORY Hx Appendectomy: Yes Hx Coronary Stent: Yes Hx Tonsillectomy: Yes - ANESTHESIA Hx Anesthesia: Yes Hx Anesthesia Reactions: No Hx Malignant Hyperthermia: No Meds Allergies/Adverse Reactions: Allergies Allergy/AdvReac Type Severity Reaction Status Date / Time No Known Allergies Allergy Verified 05/26/17 07:00 Physical Exam - Constitutional Appears: Non-toxic - ENT Exam ENT Exam: Mucous Membranes Moist - Respiratory Exam Respiratory Exam: Clear to Auscultation Bilateral, NORMAL BREATHING PATTERN. absent: Accessory Muscle Use, Respiratory Distress - Cardiovascular Exam Cardiovascular Exam: Irregular Rhythm, +S1, +S2. absent: JVD Additional comments: Patient has known afib - GI/Abdominal Exam GI & Abdominal Exam: Distended, Guarding, Hyperactive Bowel Sounds, Tenderness. absent: Firm, Hernia Additional comments: Patient is tender to palpation in the lower half of his abdomen. Hyperactive bowel sounds are due to recent insertion of fleet enema. - Neurological Exam Neurological exam: Alert, Oriented x3 - Psychiatric Exam Psychiatric exam: Normal Affect, Normal Mood - Skin Skin Exam: Dry, Normal Color, Warm Results - Vital Signs Recent Vital Signs: Last Vital Signs Temp 98.6 F 05/26/17 15:00 Pulse 91 H 05/26/17 15:00 Resp 20 05/26/17 15:00 BP 117/69 05/26/17 15:00 Pulse Ox 97 05/26/17 15:00 - Labs Result Diagrams: 05/26/17 07:59 05/26/17 07:59 Labs: Laboratory Results - last 24 hr 05/26/17 16:42 POC Glucose (mg/dL) 137 H Assessment & Plan - Assessment and Plan (Free Text) Assessment: Partial SBO Surgery consulted - Dr. Brian JIMENEZ NG tube with low intermittent suction Fleet enema given for fecal impaction; patient is dependent on Lactulose at home CT Abdomen and Pelvis with Oral and IV contrast Other Rad Studies (CT/US): Read By Radiologist, Radiology Report Reviewed CT/US Interpretation: IMPRESSION: Dilated fluid-filled loops of small bowel without clear transition point however evidence of decompressed bowel loops in the right lower quadrant ; overall appearance worrisome for small bowel obstruction. Ileus is not excluded. Correlate clinically. Cholelithiasis. Bilateral low-density renal lesions which are too small to characterize, statistically likely cysts. Hepatic steatosis. Right-sided pleural plaque, suggesting asbestos related pleural disease. Additional findings as above. Diabetes Started patient on home dose of medications Lantus 40, Novolog sliding scale Atrial Fibrillation D/C patient's home medication of Xarelto Started on heprin drip 81378 units per protocol Continue Digoxin Hypertension Continue home medications Metoprolol and Losartan Hyperlipidemia Continue home medication Lipitor Prophylaxis Started on protonix, not pepcid due to elevation in BUN and creatinine Started on heprin drip 13033 units per protocol for afib <Carlos Sharp M - Last Filed: 05/27/17 15:14> Results - Vital Signs Recent Vital Signs: Last Vital Signs Temp 98.4 F 05/27/17 07:52 Pulse 81 05/27/17 07:52 Resp 20 05/27/17 07:52 BP 115/60 05/27/17 07:52 Pulse Ox 97 05/27/17 07:52 - Labs Result Diagrams: 05/27/17 08:00 05/27/17 08:00 Labs: Laboratory Results - last 24 hr 05/26/17 05/26/17 05/27/17 16:42 18:10 00:57 WBC RBC Hgb Hct MCV MCH MCHC RDW Plt Count MPV Neut % (Auto) Lymph % (Auto) [place] % (Auto) Eos % (Auto) Baso % (Auto) Neut # Lymph # [place] # Eos # Baso # PT INR APTT 37 H Sodium Potassium Chloride Carbon Dioxide Anion Gap BUN Creatinine Est GFR ( Amer) Est GFR (Non-Af Amer) POC Glucose (mg/dL) 137 H 88 Random Glucose Calcium Total Bilirubin AST ALT Alkaline Phosphatase Total Protein Albumin Globulin Albumin/Globulin Ratio Digoxin 05/27/17 05/27/17 05/27/17 02:05 06:46 08:00 WBC 8.7 D RBC 4.26 L Hgb 13.1 D Hct 39.2 MCV 92.1 MCH 30.7 MCHC 33.3 RDW 14.0 Plt Count 189 MPV 8.2 Neut % (Auto) 74.5 Lymph % (Auto) 13.5 L [place] % (Auto) 9.5 Eos % (Auto) 2.4 Baso % (Auto) 0.1 Neut # 6.5 Lymph # 1.2 [place] # 0.8 Eos # 0.2 Baso # 0.0 PT INR APTT 102 H* D Sodium Potassium Chloride Carbon Dioxide Anion Gap BUN Creatinine Est GFR ( Amer) Est GFR (Non-Af Amer) POC Glucose (mg/dL) 88 Random Glucose Calcium Total Bilirubin AST ALT Alkaline Phosphatase Total Protein Albumin Globulin Albumin/Globulin Ratio Digoxin 05/27/17 05/27/17 05/27/17 08:00 08:00 08:52 WBC RBC Hgb Hct MCV MCH MCHC RDW Plt Count MPV Neut % (Auto) Lymph % (Auto) [place] % (Auto) Eos % (Auto) Baso % (Auto) Neut # Lymph # [place] # Eos # Baso # PT 12.9 H INR 1.1 APTT 51 H D Sodium 141 Potassium 3.7 Chloride 103 Carbon Dioxide 27 Anion Gap 15 BUN 29 H Creatinine 1.1 Est GFR ( Amer) > 60 Est GFR (Non-Af Amer) > 60 POC Glucose (mg/dL) Random Glucose 90 Calcium 7.8 L Total Bilirubin 1.3 AST 33 ALT 34 Alkaline Phosphatase 50 Total Protein 6.2 L Albumin 3.0 L D Globulin 3.2 Albumin/Globulin Ratio 0.9 L Digoxin 0.5 L 05/27/17 11:25 WBC RBC Hgb Hct MCV MCH MCHC RDW Plt Count MPV Neut % (Auto) Lymph % (Auto) [place] % (Auto) Eos % (Auto) Baso % (Auto) Neut # Lymph # [place] # Eos # Baso # PT INR APTT Sodium Potassium Chloride Carbon Dioxide Anion Gap BUN Creatinine Est GFR ( Amer) Est GFR (Non-Af Amer) POC Glucose (mg/dL) 111 H Random Glucose Calcium Total Bilirubin AST ALT Alkaline Phosphatase Total Protein Albumin Globulin Albumin/Globulin Ratio Digoxin Attending/Attestation - Attestation I have personally seen and examined this patient.: Yes I have fully participated in the care of the patient.: Yes I have reviewed all pertinent clinical information: Yes Notes (Text): 05/27/17 15:13 Patient was seen and examined at bedside with the resident. Surgical evaluation seen and appreciated. Patient to receive enemas and may need an NG tube if no relief. I discussed the plan of care with the resident and agree with the history and physical and assessment/plan documented above
[2017-05-26] MEDS: Metoprolol Succinate 25 mg XL Tab PO SCH (17:46)
[2017-05-26] MEDS: Digoxin 250 mcg (0.25 mg) Tab PO SCH (17:46)
[2017-05-26 18:34] VITALS: BMI 20.4
[2017-05-26] MEDS: Piperacill/Tazo 2.25gm in Dex 2.25 GM/50 ML BAG IVPB SCH (19:26)
[2017-05-26] MEDS: Sodium Chloride 0.9% 1,000 ML IV SCH (19:28)
--- NOTE | 2017-05-26 20:19 | CARD ---
APPROVED REPORT EKG Measurement Heart [id number] <Conclusion> Atrial fibrillation with rapid ventricular response Nonspecific ST abnormality Abnormal QRS-T angle, consider primary T wave abnormality Abnormal ECG
[2017-05-26] MEDS ORDERED: (Lantus) Insulin Glargine, Recombinant SC SCH (22:00)
[2017-05-27] MEDS: Piperacill/Tazo 2.25gm in Dex 2.25 GM/50 ML BAG IVPB SCH ×2 (01:53→06:27)
[2017-05-27] MEDS ORDERED: Heparin25000 units/250ml 1/2NS 25,000 UNITS/250 ML BAG IV PRN (02:45)
[2017-05-27] MEDS: Sodium Chloride 0.9% 1,000 ML IV SCH ×2 (04:30→15:00)
[2017-05-27] MEDS: (Novolin R) Insulin Human Regular 100 units/ml vial SC SCH ×4 (07:22→18:00)
[2017-05-27] MEDS ORDERED: Morphine 4 MG/ML VIAL IVP PRN (07:45)
--- NOTE | 2017-05-27 07:53 | CP.PCM.PN ---
Addendum entered and electronically signed by Margarito Freeman DO 05/27/17 18:51 : Physical Exam cont. - Neurological Exam Neurological exam: Alert, Oriented x3 - Psychiatric Exam Psychiatric exam: Normal Affect, Normal Mood - Skin Skin Exam: Dry, Normal Color, Warm Assessment/Plan Small bowel obstruction = acute * Imaging Abdominal X-ray - Obstructive Series (05/26/2017) Findings consistent with early or partial to intermittent mid to distal small bowel obstruction. Abdomen/Pelvis CT (05/26/2017) Overall appearance worrisome for small bowel obstruction. Ileus not excluded. * Surgical Consult * Per surgery team, surgery not indicated at this time as patient's nausea and vomiting have resolved. NG tube not indicated at this time * Clear liquid diet, advance as tolerated * continue NaCl 0.9% 1,000mL @ 100mL/hr. * Fleet enema ordered on 05/26/2017 by surgical team - patient has had multiple, well-formed bowel movements since. * Leukocytosis with left shift * WBC 21.2H (05/26/17) ---> 8.7 today * No objective/subjective fevers. * Can stop IV Zosyn * Pain well-controlled on Morphine 1mg IVP PRN. History of atrial fibrillation, status = chronic * IV Heparin 25,000 units/250mL @ 9.389 mL/hr IV q24hr. * APTT was 102 at 02:05, so Heparin was held for one hour. APTT was 51 at 08:52. * Will continue IV Heparin. * Patient's ambulatory Toprol Xl 25 mg PO QD continued in hospital for rate control. History of type 2 diabetes mellitus, status = chronic * Patient reports history of uncontrolled blood sugar excluding him from cataract surgery per PMD. * Patient is currently on Novolin R sliding scale * Random glucose 337 (05/26) ---> 90 (05/27). History of hypertension, status = chronic * Patient's ambulatory Cozaar 50 mg PO QD continued inpatient. History of hyperlipidemia * Patient's ambulatory Crestor 5mg PO HS continued inpatient. Prophylaxis * Protonix 40mg IVP QD for GI prophylaxis. Original Note: <Margarito Freeman - Last Filed: 05/27/17 18:44> Subjective - Date & Time of Evaluation Date of Evaluation: 05/27/17 Time of Evaluation: 07:49 - Subjective Subjective: PGY [address] Sharp Patient seen and examined at bedside. Patient is calm and in no acute distress. Patient reports resolving bilateral lower quadrant abdominal pain has decreased to 4-5/10 from 05/04 yesterday. Patient has had 3 well-formed bowel movements since enema yesterday afternoon and currently denies nausea/vomiting. Patient is passing gas. Patient denies subjective fevers, night sweats, chest pain, palpitations, shortness of breath, leg pain and urinary symptoms. Objective - Vital Signs/Intake and Output Vital Signs (last 24 hours): Temp Pulse Resp BP Pulse Ox 98.4 F 69 20 91/60 L 96 05/27/17 00:00 05/27/17 00:00 05/27/17 00:00 05/27/17 00:00 05/27/17 00:00 Intake and Output: 05/27/17 05/27/17 06:59 18:59 Intake Total 648 Balance 648 - Medications Medications: Current Medications Digoxin (Lanoxin) 0.25 mg PO DAILY@1800 [facility] Last Admin: 05/26/17 17:46 Dose: 0.25 mg Sodium Chloride (Sodium Chloride 0.9%) 1,000 mls @ 100 mls/hr IV .Q10H [facility] Last Admin: 05/27/17 04:30 Dose: 100 mls/hr Piperacillin Sod/Tazobactam Sod (Zosyn 2.25 Gm Iv Premix) 2.25 gm in 50 mls @ 100 mls/hr IVPB Q6H [facility] Last Admin: 05/27/17 06:27 Dose: 100 mls/hr Heparin Sodium/Sodium Chloride (Heparin 60149 Units/250ml 1/2 Normal Saline) 25 ,000 units in 250 mls @ 9.389 mls/hr IV .Q24H PRN; Protocol; 15 UNITS/KG/HR PRN Reason: PROTOCOL Last Admin: 05/27/17 03:42 Dose: 15 units/kg/hr, 9.389 mls/hr Insulin Human Regular (Novolin R) 0 unit SC Q6H [facility] PRN Reason: Protocol Last Admin: 05/27/17 07:22 Dose: Not Given Lactulose (Enulose) 20 gm PO BID PRN PRN Reason: Constipation Losartan Potassium (Cozaar) 50 mg PO DAILY [facility] Last Admin: 05/26/17 17:46 Dose: 50 mg Metoprolol Succinate (Toprol Xl) 25 mg PO DAILY [facility] Last Admin: 05/26/17 17:46 Dose: 25 mg Morphine Sulfate (Morphine) 1 mg IVP Q4 PRN PRN Reason: Pain, severe (8-10) Ondansetron HCl (Zofran Inj) 4 mg IVP Q6H PRN PRN Reason: Nausea/Vomiting Pantoprazole Sodium (Protonix Inj) 40 mg IVP DAILY [facility] Last Admin: 05/26/17 19:25 Dose: 40 mg Rosuvastatin Calcium (Crestor) 5 mg PO HS [facility] - Labs Labs: APTT 102 SECONDS (21-34) H* D 05/27/17 02:05 - Constitutional Appears: Non-toxic, No Acute Distress - ENT Exam ENT Exam: Mucous Membranes Moist - Respiratory Exam Respiratory Exam: Clear to Ausculation Bilateral, NORMAL BREATHING PATTERN. absent: Accessory Muscle Use, Respiratory Distress - Cardiovascular Exam Cardiovascular Exam: REGULAR RHYTHM, +S1, +S2 - GI/Abdominal Exam GI & Abdominal Exam: Soft, Tenderness, Normal Bowel Sounds. absent: Rigid Additional comments: Tender in the inferior half of the abdomen b/l <Carlos Sharp - Last Filed: 05/28/17 17:31> Objective - Vital Signs/Intake and Output Vital Signs (last 24 hours): Temp Pulse Resp BP Pulse Ox 98.4 F 62 20 131/60 97 05/28/17 15:00 05/28/17 16:05 05/28/17 15:00 05/28/17 16:05 05/28/17 16:05 Intake and Output: 05/28/17 05/28/17 06:59 18:59 Intake Total 874 1495.2 Output Total 600 Balance 874 895.2 - Medications Medications: Current Medications Digoxin (Lanoxin) 0.25 mg PO DAILY@1800 [facility] Last Admin: 05/28/17 17:26 Dose: 0.25 mg Sodium Chloride (Sodium Chloride 0.9%) 1,000 mls @ 100 mls/hr IV .Q10H [facility] Last Admin: 05/28/17 12:40 Dose: 100 mls/hr Insulin Human Regular (Novolin R) 0 unit SC Q6H [facility] PRN Reason: Protocol Last Admin: 05/28/17 12:42 Dose: 2 unit Lactulose (Enulose) 20 gm PO BID PRN PRN Reason: Constipation Losartan Potassium (Cozaar) 50 mg PO DAILY [facility] Last Admin: 05/28/17 12:12 Dose: 50 mg Metoprolol Succinate (Toprol Xl) 25 mg PO DAILY [facility] Last Admin: 05/28/17 12:12 Dose: 25 mg Morphine Sulfate (Morphine) 1 mg IVP Q4 PRN PRN Reason: Pain, severe (8-10) Ondansetron HCl (Zofran Inj) 4 mg IVP Q6H PRN PRN Reason: Nausea/Vomiting Pantoprazole Sodium (Protonix Inj) 40 mg IVP DAILY [facility] Last Admin: 05/28/17 12:12 Dose: 40 mg Rivaroxaban (Xarelto) 20 mg PO DAILY [facility] Last Admin: 05/28/17 17:26 Dose: 20 mg Rosuvastatin Calcium (Crestor) 5 mg PO HS [facility] Last Admin: 05/27/17 21:11 Dose: 5 mg - Labs Labs: 05/28/17 07:52 05/28/17 07:52 PT 11.0 SECONDS (9.7-12.2) 05/28/17 11:06 INR 1.0 05/28/17 11:06 APTT 62 SECONDS (21-34) H D 05/28/17 11:06 Attending/Attestation - Attestation I have personally seen and examined this patient.: Yes I have fully participated in the care of the patient.: Yes I have reviewed all pertinent clinical information, including history, physical exam and plan: Yes Notes (Text): 05/28/17 17:31 Patient was seen and examined at bedside with the resident Patient is feeling better. He is tolerating clear liquid diet Abdominal pain is improved. Patient is having bowel movement Discussed plan of care with the resident agree with the above history and physical and assessment/plan recommended by the resident.
[2017-05-27 08:13] LABS: EOS # 0.2 K/uL (0.0-0.7); MEAN CELL VOLUME 92.1 fL (80.0-94.0); MEAN CORPUSCULAR HEMOGLOBIN 30.7 pg (27.0-31.0); MONO # 0.8 K/uL (0.0-0.8); NEUT # 6.5 K/uL (1.8-7.0)
[2017-05-27 08:20] LABS: BASO % 0.1 % (0.0-2.0); EOS % 2.4 % (0.0-4.0); LYMPH # 1.2 K/uL (1.0-4.3); LYMPH % 13.5 % (20.0-40.0); MEAN CORPUSCULAR HGB CONC 33.3 g/dL (33.0-37.0); MEAN PLATELET VOLUME 8.2 fL (7.2-11.7); MONO % 9.5 % (0.0-10.0); NEUT % 74.5 % (50.0-75.0); RBC 4.26 Mil/uL (4.40-5.90)
[2017-05-27 08:22] LABS: WHITE BLOOD COUNT 8.7 K/uL (4.8-10.8)
--- NOTE | 2017-05-27 08:24 | CP.PCM.PN ---
Subjective - Date & Time of Evaluation Date of Evaluation: 05/27/17 Time of Evaluation: 06:10 - Subjective Subjective: General surgery note Patient was seen and examined at bedside in no acute distress. Patient states that his symptoms are subsiding. Patient had no acute issues overnight. Patient admits to mild diffuse abdominal pain that is more localized to the bilateral lower quadrants and frequent bowel movements that is often loose in consistency but denies nausea, vomiting, dizziness, fever, chills, chest pain and palpitations. Patient is able to ambulate to the bathroom by himself. Objective - Vital Signs/Intake and Output Vital Signs (last 24 hours): Temp Pulse Resp BP Pulse Ox 98.4 F 81 20 115/60 97 05/27/17 07:52 05/27/17 07:52 05/27/17 07:52 05/27/17 07:52 05/27/17 07:52 Intake and Output: 05/27/17 05/27/17 06:59 18:59 Intake Total 648 800 Output Total 2 Balance 648 798 - Medications Medications: Current Medications Digoxin (Lanoxin) 0.25 mg PO DAILY@1800 [facility] Last Admin: 05/26/17 17:46 Dose: 0.25 mg Sodium Chloride (Sodium Chloride 0.9%) 1,000 mls @ 100 mls/hr IV .Q10H [facility] Last Admin: 05/27/17 04:30 Dose: 100 mls/hr Piperacillin Sod/Tazobactam Sod (Zosyn 2.25 Gm Iv Premix) 2.25 gm in 50 mls @ 100 mls/hr IVPB Q6H [facility] Last Admin: 05/27/17 06:27 Dose: 100 mls/hr Heparin Sodium/Sodium Chloride (Heparin 14118 Units/250ml 1/2 Normal Saline) 25 ,000 units in 250 mls @ 9.389 mls/hr IV .Q24H PRN; Protocol; 15 UNITS/KG/HR PRN Reason: PROTOCOL Last Admin: 05/27/17 03:42 Dose: 15 units/kg/hr, 9.389 mls/hr Insulin Human Regular (Novolin R) 0 unit SC Q6H [facility] PRN Reason: Protocol Last Admin: 05/27/17 07:22 Dose: Not Given Lactulose (Enulose) 20 gm PO BID PRN PRN Reason: Constipation Losartan Potassium (Cozaar) 50 mg PO DAILY [facility] Last Admin: 05/26/17 17:46 Dose: 50 mg Metoprolol Succinate (Toprol Xl) 25 mg PO DAILY [facility] Last Admin: 05/26/17 17:46 Dose: 25 mg Morphine Sulfate (Morphine) 1 mg IVP Q4 PRN PRN Reason: Pain, severe (8-10) Ondansetron HCl (Zofran Inj) 4 mg IVP Q6H PRN PRN Reason: Nausea/Vomiting Pantoprazole Sodium (Protonix Inj) 40 mg IVP DAILY [facility] Last Admin: 05/26/17 19:25 Dose: 40 mg Rosuvastatin Calcium (Crestor) 5 mg PO HS [facility] - Labs Labs: APTT 102 SECONDS (21-34) H* D 05/27/17 02:05 - Constitutional Appears: Well, No Acute Distress - Head Exam Head Exam: ATRAUMATIC, NORMOCEPHALIC - Eye Exam Eye Exam: EOMI, Normal appearance - ENT Exam ENT Exam: Mucous Membranes Moist, Normal Exam - Respiratory Exam Respiratory Exam: Clear to Ausculation Bilateral, NORMAL BREATHING PATTERN - Cardiovascular Exam Cardiovascular Exam: Irregular Rhythm, +S1, +S2 - GI/Abdominal Exam GI & Abdominal Exam: Soft, Normal Bowel Sounds. absent: Distended Additional comments: Mild diffuse abdominal tenderness that his more localized to the bilateral lower quadrants. - Extremities Exam Extremities Exam: Normal Capillary Refill, Normal Inspection. absent: Calf Tenderness, Tenderness - Neurological Exam Neurological Exam: Alert, Awake, Oriented x3 - Psychiatric Exam Psychiatric exam: Normal Affect, Normal Mood - Skin Skin Exam: Dry, Normal Color, Warm Assessment and Plan (1) Small bowel obstruction Assessment & Plan: 77 year old male who presents with abdominal pain, nausea, vomiting with abdomen obstructive series findings consistent with a early or partial or intermittent mid to distal small bowel obstruction. Plan: * No surgical intervention at this time * No nasogastric tube placement at this time as patient is having frequent bowel movements and has non-distended abdomen * Continue IV fluids * Continue anti-emetics medication * Continue to monitor bowel movement function * Advanced to clear liquid diet * Encouraged ambulation Status: Acute
[2017-05-27 08:25] LABS: HEMOGLOBIN 13.1 g/dL (12.0-18.0)
[2017-05-27 08:41] LABS: ALB/GLOB RATIO 0.9 (1.0-2.1); ALT/SGPT 34 U/L (21-72); AST/SGOT 33 U/L (17-59); BLOOD UREA NITROGEN 29 mg/dL (9-20); CALCIUM 7.8 mg/dl (8.6-10.4); GFR AFRICAN-AMERICAN > 60; GFR NON-AFRICAN AMERICAN > 60
[2017-05-27 09:11] LABS: INR 1.1; PROTHROMBIN TIME 12.9 SECONDS (9.7-12.2)
[2017-05-27] MEDS: Metoprolol Succinate 25 mg XL Tab PO SCH (11:10)
[2017-05-27 15:29] LABS: INR 1.2
[2017-05-27] MEDS: Digoxin 250 mcg (0.25 mg) Tab PO SCH (17:22)
[2017-05-28] MEDS: (Novolin R) Insulin Human Regular 100 units/ml vial SC SCH ×4 (00:15→18:49)
[2017-05-28] MEDS: Sodium Chloride 0.9% 1,000 ML IV SCH ×5 (00:50→23:15)
[2017-05-28 08:02] LABS: BASO % 0.2 % (0.0-2.0); EOS # 0.3 K/uL (0.0-0.7); EOS % 3.6 % (0.0-4.0); HEMOGLOBIN 12.4 g/dL (12.0-18.0); LYMPH # 0.9 K/uL (1.0-4.3); MEAN CELL VOLUME 92.9 fL (80.0-94.0); MEAN CORPUSCULAR HEMOGLOBIN 30.8 pg (27.0-31.0); MEAN CORPUSCULAR HGB CONC 33.1 g/dL (33.0-37.0); MEAN PLATELET VOLUME 8.3 fL (7.2-11.7); MONO # 0.6 K/uL (0.0-0.8); MONO % 7.9 % (0.0-10.0); NEUT # 5.6 K/uL (1.8-7.0); NEUT % 76.3 % (50.0-75.0); RBC 4.03 Mil/uL (4.40-5.90); RED CELL DISTRIBUTION WIDTH 13.6 % (11.5-14.5); WHITE BLOOD COUNT 7.4 K/uL (4.8-10.8)
[2017-05-28 08:11] LABS: ALBUMIN 2.8 g/dL (3.5-5.0)
[2017-05-28 08:14] LABS: ALB/GLOB RATIO 0.9 (1.0-2.1); AST/SGOT 24 U/L (17-59); BLOOD UREA NITROGEN 16 mg/dL (9-20); GFR AFRICAN-AMERICAN > 60; GFR NON-AFRICAN AMERICAN > 60
[2017-05-28 08:15] LABS: ALT/SGPT 35 U/L (21-72); CALCIUM 7.3 mg/dl (8.6-10.4)
--- NOTE | 2017-05-28 09:16 | CP.PCM.PN ---
Subjective - Date & Time of Evaluation Date of Evaluation: 05/28/17 Time of Evaluation: 07:40 - Subjective Subjective: General Surgery Patient was seen and examined at bedside in no acute distress. Patient reports that he is doing well. Patient admits to moderate B/L quadrant abdominal pain but denies nausea, vomiting, fever, chills. Patient is tolerating clear liquid diet and having bowel movement. Patient has no new complaints. Objective - Vital Signs/Intake and Output Vital Signs (last 24 hours): Temp Pulse Resp BP Pulse Ox 98.2 F 75 20 130/67 98 05/28/17 07:38 05/28/17 07:38 05/28/17 07:38 05/28/17 07:38 05/28/17 07:38 Intake and Output: 05/28/17 05/28/17 06:59 18:59 Intake Total 874 1115.2 Output Total 600 Balance 874 515.2 - Medications Medications: Current Medications Digoxin (Lanoxin) 0.25 mg PO DAILY@1800 [facility] Last Admin: 05/27/17 17:22 Dose: 0.25 mg Sodium Chloride (Sodium Chloride 0.9%) 1,000 mls @ 100 mls/hr IV .Q10H [facility] Last Admin: 05/28/17 03:00 Dose: 100 mls/hr Heparin Sodium/Sodium Chloride (Heparin 37406 Units/250ml 1/2 Normal Saline) 25 ,000 units in 250 mls @ 9.389 mls/hr IV .Q24H PRN; Protocol; 15 UNITS/KG/HR PRN Reason: PROTOCOL Last Admin: 05/27/17 03:42 Dose: 15 units/kg/hr, 9.389 mls/hr Insulin Human Regular (Novolin R) 0 unit SC Q6H [facility] PRN Reason: Protocol Last Admin: 05/28/17 06:27 Dose: Not Given Lactulose (Enulose) 20 gm PO BID PRN PRN Reason: Constipation Losartan Potassium (Cozaar) 50 mg PO DAILY [facility] Last Admin: 05/27/17 11:10 Dose: 50 mg Metoprolol Succinate (Toprol Xl) 25 mg PO DAILY [facility] Last Admin: 05/27/17 11:10 Dose: 25 mg Morphine Sulfate (Morphine) 1 mg IVP Q4 PRN PRN Reason: Pain, severe (8-10) Ondansetron HCl (Zofran Inj) 4 mg IVP Q6H PRN PRN Reason: Nausea/Vomiting Pantoprazole Sodium (Protonix Inj) 40 mg IVP DAILY [facility] Last Admin: 05/27/17 11:10 Dose: 40 mg Rosuvastatin Calcium (Crestor) 5 mg PO HS [facility] Last Admin: 05/27/17 21:11 Dose: 5 mg - Labs Labs: 05/28/17 07:52 05/28/17 07:52 PT 13.0 SECONDS (9.7-12.2) H 05/27/17 15:16 INR 1.2 05/27/17 15:16 APTT 111 SECONDS (21-34) H* D 05/28/17 07:52 - Constitutional Appears: Well, No Acute Distress - Head Exam Head Exam: ATRAUMATIC, NORMAL INSPECTION - Eye Exam Eye Exam: EOMI, Normal appearance - ENT Exam ENT Exam: Mucous Membranes Moist, Normal Exam - Respiratory Exam Respiratory Exam: Clear to Ausculation Bilateral, NORMAL BREATHING PATTERN - Cardiovascular Exam Cardiovascular Exam: REGULAR RHYTHM, +S1, +S2 - GI/Abdominal Exam GI & Abdominal Exam: Soft, Normal Bowel Sounds Additional comments: B/L lower quadrant tenderness - Extremities Exam Extremities Exam: Normal Capillary Refill, Normal Inspection - Neurological Exam Neurological Exam: Alert, Awake, Oriented x3 - Psychiatric Exam Psychiatric exam: Normal Affect, Normal Mood - Skin Skin Exam: Dry, Normal Color, Warm Assessment and Plan (1) Small bowel obstruction Assessment & Plan: 77 year old male who presents with abdominal pain, nausea, vomiting with abdomen obstructive series findings consistent with a early or partial or intermittent mid to distal small bowel obstruction. Plan: * No surgical intervention at this time * Continue to monitor with serial abdominal exams * Continue IV fluids * Continue anti-emetics medication * Continue to monitor bowel movement function * Continue to monitor for nausea and vomiting * Continue clear liquid diet, if tolerable, may possibly advanced diet to full liquid diet this evening. * Encouraged ambulation Discussed plan with Dr. Philippe covering for Dr. Torres Status: Acute
[2017-05-28] MEDS: Metoprolol Succinate 25 mg XL Tab PO SCH (12:12)
--- NOTE | 2017-05-28 16:48 | RAD ---
PROCEDURE: Radiographs of the chest and abdomen (obstructive series) HISTORY: sbo COMPARISON: Obstructive series performed 05/26/17; CT abdomen and pelvis with contrast performed 05/26/17 TECHNIQUE: AP radiograph of the chest, with upright and supine radiographs of the abdomen. FINDINGS: CHEST: Cardiomegaly. Ectatic aorta. Subtle vague opacity in the inferior aspect right upper lobe of unclear significance. Trace right-sided pleural thickening or tiny effusion. No definite pneumothorax. Right-sided calcified pleural plaques. Please note that chest x-ray has limited sensitivity for the detection of pulmonary masses. ABDOMEN AND PELVIS: Multiple dilated loops of small bowel with air-fluid levels re-identified. No definite free air. Surgical clips project over the pelvis. Osseous demineralization. Degenerative changes. IMPRESSION: Multiple dilated loops of small bowel with air-fluid levels re-identified consistent with small bowel obstruction. Cardiomegaly. Ectatic aorta. Subtle vague opacity in the inferior aspect right upper lobe of unclear significance. Follow-up outpatient CT may be considered if indicated. Trace right-sided pleural thickening or tiny effusion. Right-sided calcified pleural plaques, suggesting asbestos related pleural disease.
[2017-05-28] MEDS: Digoxin 250 mcg (0.25 mg) Tab PO SCH (17:26)
--- NOTE | 2017-05-28 20:33 | CP.PCM.PN ---
<Margarito Freeman - Last Filed: 05/28/17 20:30> Subjective - Date & Time of Evaluation Date of Evaluation: 05/28/17 Time of Evaluation: 06:55 - Subjective Subjective: PGY [address] Sharp Patient seen and examined at bedside. Patient is no acute distress. Patient reports resolving bilateral lower quadrant abdominal pain has decreased to 3/10 from 4-5/10 yesterday. Patient has had 2 liquid bowel movements yesterday. Currently denies nausea/vomiting. Patient is passing gas. Patient denies subjective fevers, night sweats, chest pain, palpitations, shortness of breath, leg pain and urinary symptoms. Objective - Vital Signs/Intake and Output Vital Signs (last 24 hours): Temp Pulse Resp BP Pulse Ox 98.4 F 62 20 131/60 97 05/28/17 15:00 05/28/17 16:05 05/28/17 15:00 05/28/17 16:05 05/28/17 16:05 Intake and Output: 05/28/17 05/29/17 18:59 06:59 Intake Total 1495.2 Output Total 600 Balance 895.2 - Medications Medications: Current Medications Digoxin (Lanoxin) 0.25 mg PO DAILY@1800 [facility] Last Admin: 05/28/17 17:26 Dose: 0.25 mg Sodium Chloride (Sodium Chloride 0.9%) 1,000 mls @ 100 mls/hr IV .Q10H [facility] Last Admin: 05/28/17 12:40 Dose: 100 mls/hr Insulin Human Regular (Novolin R) 0 unit SC Q6H [facility] PRN Reason: Protocol Last Admin: 05/28/17 18:49 Dose: 1 unit Lactulose (Enulose) 20 gm PO BID PRN PRN Reason: Constipation Losartan Potassium (Cozaar) 50 mg PO DAILY [facility] Last Admin: 05/28/17 12:12 Dose: 50 mg Metoprolol Succinate (Toprol Xl) 25 mg PO DAILY [facility] Last Admin: 05/28/17 12:12 Dose: 25 mg Morphine Sulfate (Morphine) 1 mg IVP Q4 PRN PRN Reason: Pain, severe (8-10) Ondansetron HCl (Zofran Inj) 4 mg IVP Q6H PRN PRN Reason: Nausea/Vomiting Pantoprazole Sodium (Protonix Inj) 40 mg IVP DAILY [facility] Last Admin: 05/28/17 12:12 Dose: 40 mg Rivaroxaban (Xarelto) 20 mg PO DAILY [facility] Last Admin: 05/28/17 17:26 Dose: 20 mg Rosuvastatin Calcium (Crestor) 5 mg PO HS [facility] Last Admin: 05/27/17 21:11 Dose: 5 mg - Labs Labs: 05/28/17 07:52 05/28/17 07:52 PT 11.0 SECONDS (9.7-12.2) 05/28/17 11:06 INR 1.0 05/28/17 11:06 APTT 62 SECONDS (21-34) H D 05/28/17 11:06 - Constitutional Appears: Non-toxic, No Acute Distress - Head Exam Head Exam: ATRAUMATIC, NORMOCEPHALIC - ENT Exam ENT Exam: Mucous Membranes Moist - Respiratory Exam Respiratory Exam: Clear to Ausculation Bilateral, NORMAL BREATHING PATTERN. absent: Accessory Muscle Use, Wheezes, Respiratory Distress - Cardiovascular Exam Cardiovascular Exam: REGULAR RHYTHM, +S1, +S2 - GI/Abdominal Exam GI & Abdominal Exam: Guarding (lower half of abdomen b/l), Soft, Tenderness ( lower half of abdomen b/l), Normal Bowel Sounds. absent: Distended - Extremities Exam Extremities Exam: absent: Calf Tenderness, Pedal Edema - Neurological Exam Neurological Exam: Alert, Awake, Oriented x3 - Psychiatric Exam Psychiatric exam: Normal Affect, Normal Mood - Skin Skin Exam: Dry, Normal Color, Warm <Aron,Carlos M - Last Filed: 05/29/17 14:42> Objective - Vital Signs/Intake and Output Vital Signs (last 24 hours): Temp Pulse Resp BP Pulse Ox 98.0 F 61 20 132/61 99 05/29/17 08:38 05/29/17 08:38 05/29/17 08:38 05/29/17 08:38 05/29/17 08:38 Intake and Output: 05/29/17 05/29/17 06:59 18:59 Intake Total 800 1000 Output Total 800 Balance 800 200 - Medications Medications: Current Medications Digoxin (Lanoxin) 0.25 mg PO DAILY@1800 [facility] Last Admin: 05/28/17 17:26 Dose: 0.25 mg Sodium Chloride (Sodium Chloride 0.9%) 1,000 mls @ 100 mls/hr IV .Q10H [facility] Last Admin: 05/29/17 10:00 Dose: 100 mls/hr Insulin Human Regular (Novolin R) 0 unit SC Q6H [facility] PRN Reason: Protocol Last Admin: 05/29/17 10:00 Dose: Not Given Lactulose (Enulose) 20 gm PO BID PRN PRN Reason: Constipation Losartan Potassium (Cozaar) 50 mg PO DAILY [facility] Last Admin: 05/29/17 10:02 Dose: 50 mg Metoprolol Succinate (Toprol Xl) 25 mg PO DAILY [facility] Last Admin: 05/29/17 10:01 Dose: 25 mg Morphine Sulfate (Morphine) 1 mg IVP Q4 PRN PRN Reason: Pain, severe (8-10) Ondansetron HCl (Zofran Inj) 4 mg IVP Q6H PRN PRN Reason: Nausea/Vomiting Pantoprazole Sodium (Protonix Inj) 40 mg IVP DAILY [facility] Last Admin: 05/29/17 10:01 Dose: 40 mg Rivaroxaban (Xarelto) 20 mg PO DAILY [facility] Last Admin: 05/29/17 10:01 Dose: 20 mg Rosuvastatin Calcium (Crestor) 5 mg PO HS [facility] Last Admin: 05/28/17 21:37 Dose: 5 mg - Labs Labs: 05/29/17 07:10 05/29/17 07:10 PT 11.0 SECONDS (9.7-12.2) 05/28/17 11:06 INR 1.0 05/28/17 11:06 APTT 62 SECONDS (21-34) H D 05/28/17 11:06 Assessment and Plan (1) Small bowel obstruction Assessment & Plan: Patient is on clear liquid diet. He is also having bowel movements. Surgery is on board. Status: Acute (2) Abdominal pain Assessment & Plan: Improving. Patient states his pain is 2 out of 10 today. Status: Acute (3) Leucocytosis Assessment & Plan: Resolved. Status: Acute (4) Atrial fibrillation Assessment & Plan: Patient is on anticoagulation. He is off heparin drip now and started on Xarelto. Status: Acute (5) Hypertension Assessment & Plan: Controlled with current medication. Status: Acute Attending/Attestation - Attestation I have personally seen and examined this patient.: Yes I have fully participated in the care of the patient.: Yes I have reviewed all pertinent clinical information, including history, physical exam and plan: Yes Notes (Text): 05/29/17 14:41 Patient was seen and examined at bedside with the resident I discussed the plan of care with the resident. Abdominal pain is improving. Patient is on liquid diet. Advance the diet as tolerated Surgery is on board and follow-up recommendations Patient's anticoagulation changed to Xarelto today. I discussed the plan of care with the resident and agree with assessment plan documented with the exceptions noted.
[2017-05-29] MEDS: (Novolin R) Insulin Human Regular 100 units/ml vial SC SCH ×4 (00:57→18:08)
[2017-05-29 07:45] LABS: BASO % 0.2 % (0.0-2.0); EOS # 0.1 K/uL (0.0-0.7); EOS % 2.4 % (0.0-4.0); HEMOGLOBIN 11.8 g/dL (12.0-18.0); LYMPH # 0.8 K/uL (1.0-4.3); LYMPH % 12.9 % (20.0-40.0); MEAN CELL VOLUME 91.5 fL (80.0-94.0); MEAN CORPUSCULAR HEMOGLOBIN 30.8 pg (27.0-31.0); MEAN CORPUSCULAR HGB CONC 33.7 g/dL (33.0-37.0); MONO # 0.5 K/uL (0.0-0.8); MONO % 9.2 % (0.0-10.0); NEUT # 4.4 K/uL (1.8-7.0); NEUT % 75.3 % (50.0-75.0); RBC 3.82 Mil/uL (4.40-5.90); RED CELL DISTRIBUTION WIDTH 13.6 % (11.5-14.5); WHITE BLOOD COUNT 5.9 K/uL (4.8-10.8)
[2017-05-29 08:29] LABS: ALBUMIN 2.8 g/dL (3.5-5.0)
[2017-05-29 08:31] LABS: GFR AFRICAN-AMERICAN > 60; GFR NON-AFRICAN AMERICAN > 60
[2017-05-29 08:32] LABS: ALT/SGPT 35 U/L (21-72); AST/SGOT 19 U/L (17-59); BLOOD UREA NITROGEN 10 mg/dL (9-20)
[2017-05-29 08:33] LABS: CALCIUM 7.5 mg/dl (8.6-10.4)
--- NOTE | 2017-05-29 08:41 | CP.PCM.PN ---
Subjective - Date & Time of Evaluation Date of Evaluation: 05/29/17 Time of Evaluation: 07:30 - Subjective Subjective: General Surgery Note Patient was seen and examined at bedside. Patient reports that he is doing well. Patient denies nausea, vomiting, fevers and chills but admits to mild B/L quadrant abdominal pain. Patient is having bowel movement, tolerating soft diet and ambulating. Objective - Vital Signs/Intake and Output Vital Signs (last 24 hours): Temp Pulse Resp BP Pulse Ox 98.1 F 67 20 117/60 96 05/29/17 00:03 05/29/17 00:03 05/29/17 00:03 05/29/17 00:03 05/29/17 00:03 Intake and Output: 05/29/17 05/29/17 06:59 18:59 Intake Total 800 1000 Output Total 800 Balance 800 200 - Medications Medications: Current Medications Digoxin (Lanoxin) 0.25 mg PO DAILY@1800 [facility] Last Admin: 05/28/17 17:26 Dose: 0.25 mg Sodium Chloride (Sodium Chloride 0.9%) 1,000 mls @ 100 mls/hr IV .Q10H [facility] Last Admin: 05/28/17 23:15 Dose: 100 mls/hr Insulin Human Regular (Novolin R) 0 unit SC Q6H [facility] PRN Reason: Protocol Last Admin: 05/29/17 00:57 Dose: Not Given Lactulose (Enulose) 20 gm PO BID PRN PRN Reason: Constipation Losartan Potassium (Cozaar) 50 mg PO DAILY [facility] Last Admin: 05/28/17 12:12 Dose: 50 mg Metoprolol Succinate (Toprol Xl) 25 mg PO DAILY [facility] Last Admin: 05/28/17 12:12 Dose: 25 mg Morphine Sulfate (Morphine) 1 mg IVP Q4 PRN PRN Reason: Pain, severe (8-10) Ondansetron HCl (Zofran Inj) 4 mg IVP Q6H PRN PRN Reason: Nausea/Vomiting Pantoprazole Sodium (Protonix Inj) 40 mg IVP DAILY [facility] Last Admin: 05/28/17 12:12 Dose: 40 mg Rivaroxaban (Xarelto) 20 mg PO DAILY [facility] Last Admin: 05/28/17 17:26 Dose: 20 mg Rosuvastatin Calcium (Crestor) 5 mg PO HS [facility] Last Admin: 05/28/17 21:37 Dose: 5 mg - Labs Labs: 05/29/17 07:10 05/29/17 07:10 PT 11.0 SECONDS (9.7-12.2) 05/28/17 11:06 INR 1.0 05/28/17 11:06 APTT 62 SECONDS (21-34) H D 05/28/17 11:06 - Constitutional Appears: Well, No Acute Distress - Head Exam Head Exam: ATRAUMATIC - Eye Exam Eye Exam: EOMI, Normal appearance - ENT Exam ENT Exam: Mucous Membranes Moist, Normal Exam - Respiratory Exam Respiratory Exam: Clear to Ausculation Bilateral, NORMAL BREATHING PATTERN - Cardiovascular Exam Cardiovascular Exam: REGULAR RHYTHM, +S1, +S2 - GI/Abdominal Exam GI & Abdominal Exam: Soft, Tenderness, Normal Bowel Sounds. absent: Distended Additional comments: Mild tenderness to the B/L lower abdominal quadrant - Extremities Exam Extremities Exam: Normal Inspection. absent: Pedal Edema, Tenderness - Neurological Exam Neurological Exam: Alert, Awake, Oriented x3 - Psychiatric Exam Psychiatric exam: Normal Affect, Normal Mood - Skin Skin Exam: Dry, Normal Color, Warm Assessment and Plan (1) Small bowel obstruction Assessment & Plan: 77 year old male who presents with abdominal pain, nausea, vomiting with abdomen obstructive series findings consistent with a early or partial or intermittent mid to distal small bowel obstruction. Plan: * No surgical intervention at this time * Continue medical management * Continue to monitor with serial abdominal exams * Continue IV fluids * Continue anti-emetics medication * Continue to monitor bowel movement function - Reglan 5mg PO to promote GI motility * Continue to monitor for nausea and vomiting * Tolerating soft diet * Encouraged ambulation Discussed plan with Dr. Philippe covering for Dr. Torres Status: Acute
--- NOTE | 2017-05-29 09:51 | CP.PCM.PN ---
<Margarito Freeman - Last Filed: 05/29/17 18:28> Subjective - Date & Time of Evaluation Date of Evaluation: 05/29/17 Time of Evaluation: 09:51 - Subjective Subjective: PGY1 Medicine Note for Dr. Sharp Patient was seen and examined at bedside. Patient states that his pain has decreased from a 3-4 down to a 2 today, and is still located in the inferior portion of his abdomen b/l. Patient is tolerating a soft diet. Patient denies any bowel movments since yesterday afternoon but he is passing flatus. Patient is ambulatory. Patient denies f/c, n/v, sob or cp. Objective - Vital Signs/Intake and Output Vital Signs (last 24 hours): Temp Pulse Resp BP Pulse Ox 98.0 F 61 20 132/61 99 05/29/17 08:38 05/29/17 08:38 05/29/17 08:38 05/29/17 08:38 05/29/17 08:38 Intake and Output: 05/29/17 05/29/17 06:59 18:59 Intake Total 800 1000 Output Total 800 Balance 800 200 - Medications Medications: Current Medications Digoxin (Lanoxin) 0.25 mg PO DAILY@1800 [facility] Last Admin: 05/28/17 17:26 Dose: 0.25 mg Sodium Chloride (Sodium Chloride 0.9%) 1,000 mls @ 100 mls/hr IV .Q10H [facility] Last Admin: 05/28/17 23:15 Dose: 100 mls/hr Insulin Human Regular (Novolin R) 0 unit SC Q6H [facility] PRN Reason: Protocol Last Admin: 05/29/17 00:57 Dose: Not Given Lactulose (Enulose) 20 gm PO BID PRN PRN Reason: Constipation Losartan Potassium (Cozaar) 50 mg PO DAILY [facility] Last Admin: 05/28/17 12:12 Dose: 50 mg Metoprolol Succinate (Toprol Xl) 25 mg PO DAILY [facility] Last Admin: 05/28/17 12:12 Dose: 25 mg Morphine Sulfate (Morphine) 1 mg IVP Q4 PRN PRN Reason: Pain, severe (8-10) Ondansetron HCl (Zofran Inj) 4 mg IVP Q6H PRN PRN Reason: Nausea/Vomiting Pantoprazole Sodium (Protonix Inj) 40 mg IVP DAILY [facility] Last Admin: 05/28/17 12:12 Dose: 40 mg Rivaroxaban (Xarelto) 20 mg PO DAILY [facility] Last Admin: 05/28/17 17:26 Dose: 20 mg Rosuvastatin Calcium (Crestor) 5 mg PO HS [facility] Last Admin: 05/28/17 21:37 Dose: 5 mg - Labs Labs: 05/29/17 07:10 05/29/17 07:10 PT 11.0 SECONDS (9.7-12.2) 05/28/17 11:06 INR 1.0 05/28/17 11:06 APTT 62 SECONDS (21-34) H D 05/28/17 11:06 - Constitutional Appears: Well, Non-toxic, No Acute Distress - ENT Exam ENT Exam: Mucous Membranes Moist - Respiratory Exam Respiratory Exam: Clear to Ausculation Bilateral, NORMAL BREATHING PATTERN. absent: Accessory Muscle Use, Wheezes, Respiratory Distress - Cardiovascular Exam Cardiovascular Exam: Irregular Rhythm, +S1, +S2 - GI/Abdominal Exam GI & Abdominal Exam: Soft, Tenderness (lower quadrants b/l), Normal Bowel Sounds. absent: Distended, Firm, Guarding, Rigid - Extremities Exam Extremities Exam: absent: Calf Tenderness, Pedal Edema - Neurological Exam Neurological Exam: Alert, Awake, Normal Gait, Oriented x3 - Psychiatric Exam Psychiatric exam: Normal Affect, Normal Mood - Skin Skin Exam: Dry, Normal Color, Warm Assessment and Plan - Assessment and Plan (Free Text) Plan: (1) Small bowel obstruction Assessment & Plan: Patient advanced to a soft foods diet, advance per surgery (Dr. Philippe). Obstruction series on 05/28 showed possible partial SBO Will continue to monitor for formed BM -Patient's states he is dependent on Lactulose at home in order to go to the bathroom. Patient has refuse medication so far but stated he may take tomorrow if he does not pass a BM on his own. (2) Abdominal pain Assessment & Plan: Improving. Patient states his pain is 2 out of 10 today. Patient is passing flatus. (3) Atrial fibrillation Assessment & Plan: Patient has restarted his Xarelto 20mg PO daily Digoxin 0.25mg tab PO QD (4) Hypertension Assessment & Plan: Cozaar 50mg PO QD Toprol XL 25mg PO QD <Carlos Sharp - Last Filed: 05/30/17 12:48> Objective - Vital Signs/Intake and Output Vital Signs (last 24 hours): Temp Pulse Resp BP Pulse Ox 97 F L 82 20 115/52 L 98 05/30/17 07:58 05/30/17 07:58 05/30/17 07:58 05/30/17 07:58 05/30/17 07:58 Intake and Output: 05/30/17 05/30/17 06:59 18:59 Intake Total 800 Balance 800 - Labs Labs: 05/30/17 07:15 05/30/17 07:15 PT 11.0 SECONDS (9.7-12.2) 05/28/17 11:06 INR 1.0 05/28/17 11:06 APTT 62 SECONDS (21-34) H D 05/28/17 11:06 Assessment and Plan (1) Small bowel obstruction Status: Acute (2) Abdominal pain Status: Acute (3) Leucocytosis Status: Acute Attending/Attestation - Attestation I have personally seen and examined this patient.: Yes I have fully participated in the care of the patient.: Yes I have reviewed all pertinent clinical information, including history, physical exam and plan: Yes Notes (Text): 05/30/17 12:48 Patient was seen and examined at bedside with the resident neck and patient is tolerating diet Denies any abdominal pain Having bowel movement Continue current management as per recommendations of for surgery Discharge planning when cleared by surgery.
[2017-05-29] MEDS: Sodium Chloride 0.9% 1,000 ML IV SCH ×3 (10:00→21:40)
[2017-05-29] MEDS: Metoprolol Succinate 25 mg XL Tab PO SCH (10:01)
[2017-05-29] MEDS: Digoxin 250 mcg (0.25 mg) Tab PO SCH (17:14)
[2017-05-29 17:15] VITALS: PULSE 51
[2017-05-30] MEDS: (Novolin R) Insulin Human Regular 100 units/ml vial SC SCH ×3 (06:52→11:40)
[2017-05-30 07:31] LABS: BASO % 0.2 % (0.0-2.0); EOS # 0.1 K/uL (0.0-0.7); EOS % 2.2 % (0.0-4.0); HEMOGLOBIN 12.4 g/dL (12.0-18.0); LYMPH # 1.1 K/uL (1.0-4.3); LYMPH % 17.3 % (20.0-40.0); MEAN CELL VOLUME 91.9 fL (80.0-94.0); MEAN CORPUSCULAR HEMOGLOBIN 30.4 pg (27.0-31.0); MEAN CORPUSCULAR HGB CONC 33.1 g/dL (33.0-37.0); MEAN PLATELET VOLUME 8.1 fL (7.2-11.7); MONO # 0.6 K/uL (0.0-0.8); MONO % 9.4 % (0.0-10.0); NEUT # 4.4 K/uL (1.8-7.0); NEUT % 70.9 % (50.0-75.0); RBC 4.08 Mil/uL (4.40-5.90); RED CELL DISTRIBUTION WIDTH 13.3 % (11.5-14.5); WHITE BLOOD COUNT 6.3 K/uL (4.8-10.8)
[2017-05-30 07:42] LABS: ALBUMIN 3.1 g/dL (3.5-5.0)
[2017-05-30 07:45] LABS: AST/SGOT 26 U/L (17-59); BLOOD UREA NITROGEN 9 mg/dL (9-20); GFR AFRICAN-AMERICAN > 60; GFR NON-AFRICAN AMERICAN > 60
[2017-05-30 07:46] LABS: ALT/SGPT 34 U/L (21-72); CALCIUM 7.9 mg/dl (8.6-10.4)
[2017-05-30 07:59] VITALS: BP 115/52; PULSE 82; TEMP 97; O2SAT 98
[2017-05-30] MEDS: Metoprolol Succinate 25 mg XL Tab PO SCH (09:16)
--- NOTE | 2017-05-30 09:23 | CP.PCM.PN ---
Subjective - Date & Time of Evaluation Date of Evaluation: 05/30/17 Time of Evaluation: 07:30 - Subjective Subjective: Pt S&E. No acute events over night. Patient reports having 2 BMs yesterday afternoon. Denies BM this morning, but reports passing flatus. Patient states his abdomen is no longer tender. Reports he feels much better. Denies n/v, abdominal pain. Patient is ambulating. Objective - Vital Signs/Intake and Output Vital Signs (last 24 hours): Temp Pulse Resp BP Pulse Ox 97 F L 82 20 115/52 L 98 05/30/17 07:58 05/30/17 07:58 05/30/17 07:58 05/30/17 07:58 05/30/17 07:58 Intake and Output: 05/30/17 05/30/17 06:59 18:59 Intake Total 800 Balance 800 - Medications Medications: Current Medications Digoxin (Lanoxin) 0.25 mg PO DAILY@1800 [facility] Last Admin: 05/29/17 17:14 Dose: Not Given Insulin Human Regular (Novolin R) 0 unit SC Q6H [facility] PRN Reason: Protocol Last Admin: 05/30/17 06:52 Dose: Not Given Lactulose (Enulose) 20 gm PO BID PRN PRN Reason: Constipation Last Admin: 05/30/17 08:50 Dose: 20 gm Losartan Potassium (Cozaar) 50 mg PO DAILY [facility] Last Admin: 05/30/17 09:16 Dose: 50 mg Metoclopramide HCl (Reglan) 5 mg PO 0600,1130,1630,2200 [facility] Last Admin: 05/30/17 07:58 Dose: 5 mg Metoprolol Succinate (Toprol Xl) 25 mg PO DAILY [facility] Last Admin: 05/30/17 09:16 Dose: 25 mg Morphine Sulfate (Morphine) 1 mg IVP Q4 PRN PRN Reason: Pain, severe (8-10) Ondansetron HCl (Zofran Inj) 4 mg IVP Q6H PRN PRN Reason: Nausea/Vomiting Pantoprazole Sodium (Protonix Inj) 40 mg IVP DAILY [facility] Last Admin: 05/29/17 10:01 Dose: 40 mg Rivaroxaban (Xarelto) 20 mg PO DAILY [facility] Last Admin: 05/30/17 09:16 Dose: 20 mg Rosuvastatin Calcium (Crestor) 5 mg PO HS [facility] Last Admin: 05/29/17 21:33 Dose: 5 mg - Labs Labs: 05/30/17 07:15 05/30/17 07:15 PT 11.0 SECONDS (9.7-12.2) 05/28/17 11:06 INR 1.0 05/28/17 11:06 APTT 62 SECONDS (21-34) H D 05/28/17 11:06 - Constitutional Appears: No Acute Distress - Head Exam Head Exam: NORMOCEPHALIC - Eye Exam Eye Exam: Normal appearance - ENT Exam ENT Exam: Normal Exam - Respiratory Exam Respiratory Exam: NORMAL BREATHING PATTERN - Cardiovascular Exam Cardiovascular Exam: +S1, +S2 - GI/Abdominal Exam GI & Abdominal Exam: Soft. absent: Tenderness - Neurological Exam Neurological Exam: Alert, Awake, Oriented x3 - Psychiatric Exam Psychiatric exam: Normal Mood - Skin Skin Exam: Normal Color, Warm Assessment and Plan - Assessment and Plan (Free Text) Assessment: 77M w/ PSBO, resolved -tolerating PO diet - C/w Reglan 5mg PO to promote GI motility -Patient clear for discharge from surgical standpoint -Please follow up with Dr. Torres in 10-14 days -Further recs per Dr. Philippe covering for Dr. Brian Acosta PGY-2
--- NOTE | 2017-05-30 11:03 | CP.PCM.DIS ---
<Hilda Pugh - Last Filed: 05/31/17 15:24> Provider - Provider Date of Admission: 05/26/17 10:20 Attending physician: Carlos Sharp MD Primary care physician: Dr. Gonzalez Consults: Dr. Torres - general surgery Time Spent in preparation of Discharge (in minutes): 35 Diagnosis - Discharge Diagnosis (1) Small bowel obstruction Status: Acute Comment: f/u Dr. Torres 10-14 days (2) Atrial fibrillation Status: Acute Comment: Contine Xarelto, Metoprolol. f/u PCP (3) Hypertension Status: Acute Comment: Contine Metorpolol and Cozaar. f/u PCP Hospital Course - Lab Results Lab Results: Most Recent Lab Values WBC 6.3 K/uL (4.8-10.8) 05/30/17 07:15 RBC 4.08 Mil/uL (4.40-5.90) L 05/30/17 07:15 Hgb 12.4 g/dL (12.0-18.0) 05/30/17 07:15 Hct 37.5 % (35.0-51.0) 05/30/17 07:15 MCV 91.9 fL (80.0-94.0) 05/30/17 07:15 MCH 30.4 pg (27.0-31.0) 05/30/17 07:15 MCHC 33.1 g/dL (33.0-37.0) 05/30/17 07:15 RDW 13.3 % (11.5-14.5) 05/30/17 07:15 Plt Count 174 K/uL (130-400) 05/30/17 07:15 MPV 8.1 fL (7.2-11.7) 05/30/17 07:15 Neut % (Auto) 70.9 % (50.0-75.0) 05/30/17 07:15 Lymph % (Auto) 17.3 % (20.0-40.0) L 05/30/17 07:15 Robertson % (Auto) 9.4 % (0.0-10.0) 05/30/17 07:15 Eos % (Auto) 2.2 % (0.0-4.0) 05/30/17 07:15 Baso % (Auto) 0.2 % (0.0-2.0) 05/30/17 07:15 Neut # 4.4 K/uL (1.8-7.0) 05/30/17 07:15 Lymph # 1.1 K/uL (1.0-4.3) 05/30/17 07:15 Robertson # 0.6 K/uL (0.0-0.8) 05/30/17 07:15 Eos # 0.1 K/uL (0.0-0.7) 05/30/17 07:15 Baso # 0.0 K/uL (0.0-0.2) 05/30/17 07:15 Neutrophils % (Manual) 85 % (50-75) H 05/26/17 07:59 Band Neutrophils % 6 % (0-2) H 05/26/17 07:59 Lymphocytes % (Manual) 3 % (20-40) L 05/26/17 07:59 Monocytes % (Manual) 6 % (0-10) 05/26/17 07:59 Platelet Estimate Normal (NORMAL) 05/26/17 07:59 RBC Morphology Normal 05/26/17 07:59 PT 11.0 SECONDS (9.7-12.2) 05/28/17 11:06 INR 1.0 05/28/17 11:06 APTT 62 SECONDS (21-34) H D 05/28/17 11:06 Sodium 139 mmol/L (132-148) 05/30/17 07:15 Potassium 4.1 mmol/L (3.6-5.2) 05/30/17 07:15 Chloride 101 mmol/L (98-107) 05/30/17 07:15 Carbon Dioxide 22 mmol/L (22-30) 05/30/17 07:15 Anion Gap 20 (10-20) 05/30/17 07:15 BUN 9 mg/dL (9-20) 05/30/17 07:15 Creatinine 0.7 MG/DL (0.8-1.5) L 05/30/17 07:15 Est GFR ( Amer) > 60 05/30/17 07:15 Est GFR (Non-Af Amer) > 60 05/30/17 07:15 POC Glucose (mg/dL) 139 mg/dL (65-110) H 05/30/17 07:13 Random Glucose 129 mg/dL (75-110) H 05/30/17 07:15 Calcium 7.9 mg/dl (8.6-10.4) L 05/30/17 07:15 Total Bilirubin 0.9 mg/dL (0.2-1.3) 05/30/17 07:15 AST 26 U/L (17-59) 05/30/17 07:15 ALT 34 U/L (21-72) 05/30/17 07:15 Alkaline Phosphatase 52 U/L (38-126) 05/30/17 07:15 Total Protein 6.1 g/dL (6.3-8.3) L 05/30/17 07:15 Albumin 3.1 g/dL (3.5-5.0) L 05/30/17 07:15 Globulin 3.0 gm/dL (2.2-3.9) 05/30/17 07:15 Albumin/Globulin Ratio 1.0 (1.0-2.1) 05/30/17 07:15 Urine Color Yellow (YELLOW) 05/26/17 07:59 Urine Clarity Clear (Clear) 05/26/17 07:59 Urine pH 5.0 (5.0-8.0) 05/26/17 07:59 Ur Specific [place] 1.031 (1.003-1.030) H 05/26/17 07:59 Urine Protein 1+ mg/dL (NEGATIVE) H 05/26/17 07:59 Urine Glucose (UA) 3+ mg/dL (Normal) H 05/26/17 07:59 Urine Ketones Negative mg/dL (NEGATIVE) 05/26/17 07:59 Urine Blood Negative (NEGATIVE) 05/26/17 07:59 Urine Nitrate Negative (NEGATIVE) 05/26/17 07:59 Urine Bilirubin Negative (NEGATIVE) 05/26/17 07:59 Urine Urobilinogen Normal mg/dL (0.2-1.0) 05/26/17 07:59 Ur Leukocyte Esterase Neg Saúl/uL (Negative) 05/26/17 07:59 Urine WBC (Auto) 1 /hpf (0-5) 05/26/17 07:59 Urine RBC (Auto) 2 /hpf (0-3) 05/26/17 07:59 Digoxin 0.5 ng/mL (0.8-2.0) L 05/27/17 08:00 - Hospital Course Hospital Course: On admission: Mr. Carvajal is a 77 year old male with a past history of colon cancer, L hemicolectomy, obstruction, hypertension, hyperlipidemia, atrial fibrillation, diverticulitis and gastritis presented to the ED with abdominal pain after vomiting around midnight last night. Patient describes the pain as "throbbing" with intermittent cramps. At its worst, the pain is 10/10 and it is presently 7/10. Patient states that this pain is similar to previous episodes he's experienced. Patient states that he has had multiple small bowel obstructions in the past, with the last one being on March. Patient denies any radiation. Patient tried lactulose last night after the onset of the pain and vomited shortly thereafter. Patient describes the vomitus as "brown liquid" with recognizable pieces of his evening meal. Patient denies hematemesis, diarrhea, chest pain, shortness of breath, dysuria and recent illness. He accompanied by his who answers most of his questions due to better handle of the arabic language. During hospital Stay: 77 year old male who presents with abdominal pain, nausea , vomiting with abdomen obstructive series findings consistent with a early or partial or intermittent mid to distal small bowel obstruction. NG tube was placed to decompress the bowel and was made NPO. IV fludis were given. FLeet enema was given for fecal impaction. CT abd/pelvis showed Dilated fluid-filled loops of small bowel without clear transition point however evidence of decompressed bowel loops in the right lower quadrant ; overall appearance worrisome for small bowel obstruction. Ileus is not excluded. Correlate clinically. Cholelithiasis. Bilateral low-density renal lesions which are too small to characterize, statistically likely cysts. Hepatic steatosis. Right- sided pleural plaque, suggesting asbestos related pleural disease. Additional findings as above. General surgery, Dr. Torres was consulted. Patient's condition improved and diet was advanced as tolerated. Patient did have a couple BM after lactulose and reglan use. Per patient is dependent on lactulose at home to have a BM. Patient's pain resolved and he was tolerating full diet. Patient was continued on his home doses of Xarelto for Afib and Cozaar and Toprol XL for hypertension. He was given Crestor for hyperlipidemia. Patient was given his home doses of Insulin. Patient is stable for discharge per surgery. Patient is to resume all of his home medications and also can take Reglan up to three times a day. Prescriptions were refilled and sent to the patient's preferred pharmacy. Patient is to follow up with his primary within 1 weeks of discharge. He is also to follow up withe the surgeon, Dr. Godoy within 10-14 days. He is to call and make an appointment. Patient is to return to the emergency room if symptoms return. All instructions explained to the patient and he agrees. *This is only a summary of the hospitalization. Please refer to EMR for full details. Discharge Exam - Head Exam Head Exam: NORMOCEPHALIC - Eye Exam Eye Exam: EOMI, Normal appearance Pupil Exam: NORMAL ACCOMODATION - ENT Exam ENT Exam: Mucous Membranes Moist - Respiratory Exam Respiratory Exam: NORMAL BREATHING PATTERN. absent: Accessory Muscle Use, Respiratory Distress - Cardiovascular Exam Cardiovascular Exam: Irregular Rhythm, +S1, +S2 - GI/Abdominal Exam GI & Abdominal Exam: Normal Bowel Sounds, Soft. absent: Diminished Bowel Sounds , Distended, Firm, Guarding, Tenderness - Extremities Exam Extremities exam: normal inspection - Back Exam Back exam: NORMAL INSPECTION. absent: CVA tenderness (L), CVA tenderness (R), paraspinal tenderness - Neurological Exam Neurological exam: Alert, CN II-XII Intact, Normal Gait, Oriented x3, Reflexes Normal - Psychiatric Exam Psychiatric exam: Normal Affect, Normal Mood - Skin Skin Exam: Dry, Intact, Normal Color, Warm Discharge Plan - Discharge Medications Prescriptions: Lactulose [Enulose] 1 niki PO DAILY PRN 30 Days PRN Reason: Constipation Metoclopramide [Reglan] 5 mg PO Q8 #30 tab Rivaroxaban [Xarelto] 20 mg PO DAILY #30 tab Rosuvastatin Calcium [Crestor] 5 mg PO HS #30 tab - Follow Up Plan Condition: GOOD Disposition: HOME/ ROUTINE Instructions: Acute Abdominal Pain (DC), Acute Abdominal Pain (GEN), Hypertension (DC), Hypertension (GEN) Additional Instructions: Patient is stable for discharge per surgery. Patient is to resume all of his home medications and also can take Reglan up to three times a day. Prescriptions were refilled and sent to the patient's preferred pharmacy. Patient is to follow up with his primary within 1 weeks of discharge. He is also to follow up withe the surgeon, Dr. Godoy within 10-14 days. He is to call and make an appointment. Patient is to return to the emergency room if symptoms return. All instructions explained to the patient and he agrees. Referrals: Tavares Torres MD [Staff Provider] - Kandace Gonzalez MD [Medical Doctor] - <Carlos Sharp - Last Filed: 05/31/17 17:25> Provider - Provider Date of Admission: 05/26/17 10:20 Attending physician: Carlos Sharp MD Diagnosis - Discharge Diagnosis (1) Small bowel obstruction Status: Acute (2) Abdominal pain Status: Acute (3) Leucocytosis Status: Acute Hospital Course - Lab Results Lab Results: Most Recent Lab Values WBC 6.3 K/uL (4.8-10.8) 05/30/17 07:15 RBC 4.08 Mil/uL (4.40-5.90) L 05/30/17 07:15 Hgb 12.4 g/dL (12.0-18.0) 05/30/17 07:15 Hct 37.5 % (35.0-51.0) 05/30/17 07:15 MCV 91.9 fL (80.0-94.0) 05/30/17 07:15 MCH 30.4 pg (27.0-31.0) 05/30/17 07:15 MCHC 33.1 g/dL (33.0-37.0) 05/30/17 07:15 RDW 13.3 % (11.5-14.5) 05/30/17 07:15 Plt Count 174 K/uL (130-400) 05/30/17 07:15 MPV 8.1 fL (7.2-11.7) 05/30/17 07:15 Neut % (Auto) 70.9 % (50.0-75.0) 05/30/17 07:15 Lymph % (Auto) 17.3 % (20.0-40.0) L 05/30/17 07:15 Robertson % (Auto) 9.4 % (0.0-10.0) 05/30/17 07:15 Eos % (Auto) 2.2 % (0.0-4.0) 05/30/17 07:15 Baso % (Auto) 0.2 % (0.0-2.0) 05/30/17 07:15 Neut # 4.4 K/uL (1.8-7.0) 05/30/17 07:15 Lymph # 1.1 K/uL (1.0-4.3) 05/30/17 07:15 Robertson # 0.6 K/uL (0.0-0.8) 05/30/17 07:15 Eos # 0.1 K/uL (0.0-0.7) 05/30/17 07:15 Baso # 0.0 K/uL (0.0-0.2) 05/30/17 07:15 Neutrophils % (Manual) 85 % (50-75) H 05/26/17 07:59 Band Neutrophils % 6 % (0-2) H 05/26/17 07:59 Lymphocytes % (Manual) 3 % (20-40) L 05/26/17 07:59 Monocytes % (Manual) 6 % (0-10) 05/26/17 07:59 Platelet Estimate Normal (NORMAL) 05/26/17 07:59 RBC Morphology Normal 05/26/17 07:59 PT 11.0 SECONDS (9.7-12.2) 05/28/17 11:06 INR 1.0 05/28/17 11:06 APTT 62 SECONDS (21-34) H D 05/28/17 11:06 Sodium 139 mmol/L (132-148) 05/30/17 07:15 Potassium 4.1 mmol/L (3.6-5.2) 05/30/17 07:15 Chloride 101 mmol/L (98-107) 05/30/17 07:15 Carbon Dioxide 22 mmol/L (22-30) 05/30/17 07:15 Anion Gap 20 (10-20) 05/30/17 07:15 BUN 9 mg/dL (9-20) 05/30/17 07:15 Creatinine 0.7 MG/DL (0.8-1.5) L 05/30/17 07:15 Est GFR ( Amer) > 60 05/30/17 07:15 Est GFR (Non-Af Amer) > 60 05/30/17 07:15 POC Glucose (mg/dL) 302 mg/dL (65-110) H 05/30/17 11:32 Random Glucose 129 mg/dL (75-110) H 05/30/17 07:15 Calcium 7.9 mg/dl (8.6-10.4) L 05/30/17 07:15 Total Bilirubin 0.9 mg/dL (0.2-1.3) 05/30/17 07:15 AST 26 U/L (17-59) 05/30/17 07:15 ALT 34 U/L (21-72) 05/30/17 07:15 Alkaline Phosphatase 52 U/L (38-126) 05/30/17 07:15 Total Protein 6.1 g/dL (6.3-8.3) L 05/30/17 07:15 Albumin 3.1 g/dL (3.5-5.0) L 05/30/17 07:15 Globulin 3.0 gm/dL (2.2-3.9) 05/30/17 07:15 Albumin/Globulin Ratio 1.0 (1.0-2.1) 05/30/17 07:15 Urine Color Yellow (YELLOW) 05/26/17 07:59 Urine Clarity Clear (Clear) 05/26/17 07:59 Urine pH 5.0 (5.0-8.0) 05/26/17 07:59 Ur Specific [place] 1.031 (1.003-1.030) H 05/26/17 07:59 Urine Protein 1+ mg/dL (NEGATIVE) H 05/26/17 07:59 Urine Glucose (UA) 3+ mg/dL (Normal) H 05/26/17 07:59 Urine Ketones Negative mg/dL (NEGATIVE) 05/26/17 07:59 Urine Blood Negative (NEGATIVE) 05/26/17 07:59 Urine Nitrate Negative (NEGATIVE) 05/26/17 07:59 Urine Bilirubin Negative (NEGATIVE) 05/26/17 07:59 Urine Urobilinogen Normal mg/dL (0.2-1.0) 05/26/17 07:59 Ur Leukocyte Esterase Neg Saúl/uL (Negative) 05/26/17 07:59 Urine WBC (Auto) 1 /hpf (0-5) 05/26/17 07:59 Urine RBC (Auto) 2 /hpf (0-3) 05/26/17 07:59 Digoxin 0.5 ng/mL (0.8-2.0) L 05/27/17 08:00 Attending/Attestation - Attestation I have personally seen and examined this patient.: Yes I have fully participated in the care of the patient.: Yes I have reviewed all pertinent clinical information, including history, physical exam and plan: Yes Notes (Text): 05/31/17 17:24 Patient was seen and examined at bedside with the resident Patient appears comfortable and tolerating diet Patient clear for discharge by surgery We will discharge the patient home I agree with the discharge note by the resident.
== END 2017-05-30 12:21 | disposition home health service (06) | DRG 390 ==
LOC: C.ER 06:44 → C.9E 10:20 → C.3T 11:09
PROVIDERS: ADMIT Internal Medicine; ATTEND Internal Medicine
DX: K56.60 Unspecified intestinal obstruction (principal); E11.40 Type 2 diabetes mellitus with diabetic neuropathy, unspecified; K76.0 Fatty (change of) liver, not elsewhere classified; D72.829 Elevated white blood cell count, unspecified; K80.20 Calculus of gallbladder without cholecystitis without obstruction; I48.91 Unspecified atrial fibrillation; I25.10 Atherosclerotic heart disease of native coronary artery without angina pectoris; I10 Essential (primary) hypertension; F17.210 Nicotine dependence, cigarettes, uncomplicated; J61 Pneumoconiosis due to asbestos and other mineral fibers; E78.5 Hyperlipidemia, unspecified; E78.00 Pure hypercholesterolemia, unspecified; Z79.4 Long term (current) use of insulin; Z90.49 Acquired absence of other specified parts of digestive tract; Z95.5 Presence of coronary angioplasty implant and graft; Z85.038 Personal history of other malignant neoplasm of large intestine

== ENCOUNTER 2018-05-06 12:58 | Inpatient (IN) | payer MEDICARE ==
[2018-05-06 13:03] VITALS: BMI 20.7
[2018-05-06] MEDS ORDERED: Sodium Chloride 0.9% 500 ML IV ONE ×3 (13:37→17:15)
[2018-05-06 14:05] LABS: BASO # 0.1 K/uL (0.0-0.2); BASO % 0.2 % (0.0-2.0); EOS % 0.1 % (0.0-4.0); HEMOGLOBIN 12.8 g/dL (12.0-18.0); LYMPH # 0.5 K/uL (1.0-4.3); LYMPH % 2.3 % (20.0-40.0); MEAN CELL VOLUME 87.6 fL (80.0-94.0); MEAN CORPUSCULAR HEMOGLOBIN 29.9 pg (27.0-31.0); MEAN CORPUSCULAR HGB CONC 34.1 g/dL (33.0-37.0); MONO # 1.2 K/uL (0.0-0.8); MONO % 5.4 % (0.0-10.0); NEUT # 21.2 K/uL (1.8-7.0); NRBC % 0.2 % (0.0-2.0); PLATELET COUNT 255 K/uL (130-400); RBC 4.29 Mil/uL (4.40-5.90); RED CELL DISTRIBUTION WIDTH 13.6 % (11.5-14.5)
[2018-05-06 14:11] LABS: INR 1.4; PROTHROMBIN TIME 14.9 SECONDS (9.7-12.2)
[2018-05-06 14:20] LABS: ALB/GLOB RATIO 1.2 (1.0-2.1); ALBUMIN 4.9 g/dL (3.5-5.0); CALCIUM 10.1 mg/dl (8.6-10.4)
[2018-05-06 14:39] LABS: LYMPHOCYTE 3 % (20-40); MONOCYTE 4 % (0-10); PLATELET ESTIMATE NORMAL (NORMAL); TOTAL CELLS COUNTED 100; TOXIC GRANULATION PRESENT
[2018-05-06 14:40] LABS: BANDS 9 % (0-2); NEUTROPHIL 84 % (50-75)
[2018-05-06] MEDS ORDERED: Morphine 4 MG/ML VIAL ONE (15:07)
[2018-05-06 15:26] LABS: SQUAMOUS EPITHIAL < 1 /hpf (0-5); URINE BACTERIA RARE (<OCC); URINE BILIRUBIN NEGATIVE (NEGATIVE); URINE BLOOD NEGATIVE (NEGATIVE); URINE CLARITY Hazy (Clear); URINE COLOR Yellow (YELLOW); URINE GLUCOSE (UA) 3+ mg/dL (Normal); URINE LEUKOCYTE ESTERASE 1+ Leu/uL (Negative); URINE PROTEIN 1+ mg/dL (NEGATIVE); URINE UROBILINOGEN NORMAL mg/dL (0.2-1.0)
[2018-05-06] MEDS ORDERED: Iodixanol 320 MG/ML 100 ML BOTTLE IV ONE (17:28)
--- NOTE | 2018-05-06 18:05 | CT ---
Date of service: 05/06/2018 PROCEDURE: CT Abdomen and Pelvis with contrast HISTORY: Abd pain, Vomiting, leukocytosis. h/o Colon resect COMPARISON: CT scan of the abdomen pelvis dated 05/26/2017. TECHNIQUE: Contrast dose: 100 mL Visipaque 320 Radiation dose: Total exam DLP = 214.9 mGy-cm. This CT exam was performed using one or more of the following dose reduction techniques: Automated exposure control, adjustment of the mA and/or kV according to patient size, and/or use of iterative reconstruction technique. FINDINGS: LOWER THORAX: Right lower lobe calcified pleural plaques. No focal consolidation or pleural effusion. Cardiomegaly. Coronary arterial and valvular calcifications. LIVER: Unremarkable. No gross lesion or ductal dilatation. GALLBLADDER AND BILE DUCTS: Cholelithiasis without gallbladder wall thickening or pericholecystic fluid. PANCREAS: Unremarkable. No gross lesion or ductal dilatation. SPLEEN: Unremarkable. ADRENALS: Unremarkable. No mass. KIDNEYS AND URETERS: High-density material in the calices likely represents early excretion of intravenous contrast versus nonobstructing calculi. No hydronephrosis. No solid mass. VASCULATURE: Unremarkable. No aortic aneurysm. BOWEL: Dilated fluid-filled loops of small bowel without clear transition point however evidence of decompressed bowel loops in the right lower quadrant. Anastomotic bowel suture material noted in the proximal right colon as well as in the rectum. Scattered diverticula. No gross mural thickening. APPENDIX: Not identified. PERITONEUM: Unremarkable. No free fluid. No free air. LYMPH NODES: Unremarkable. No enlarged lymph nodes. BLADDER: Distended with fluid and air. REPRODUCTIVE: Unremarkable. BONES: No acute fracture. OTHER FINDINGS: None. IMPRESSION: Dilated fluid-filled loops of small bowel without clear transition point ; however, there is evidence of decompressed bowel loops in the right lower quadrant. Overall findings are worrisome for small bowel obstruction. Urinary bladder distended with fluid and air. Cholelithiasis without CT evidence of acute cholecystitis. Additional findings as above.
[2018-05-06] MEDS ORDERED: Piperacillin/Tazobact 3.375 gm 100 ML IVPB STA (18:15)
[2018-05-06] MEDS ORDERED: Piperacillin/Tazobact 3.375 gm 100 ML IVPB ONE (18:26)
--- NOTE | 2018-05-06 18:46 | C.PDOC ---
Time Seen by Provider: 05/06/18 13:22 Chief Complaint (Nursing): Abdominal Pain History Per: Patient, Family Onset/Duration Of Symptoms: Hrs (today) Current Symptoms Are (Timing): Still Present Severity: Moderate Location Of Pain/Discomfort: RLQ, LLQ, Suprapubic Quality Of Discomfort: "Pain" Associated Symptoms: Nausea, Vomiting Alleviating Factors: None Last Bowel Movement: Yesterday Additional History Per: Prior Records Past Medical History Reviewed: Historical Data, Nursing Documentation, Vital Signs Vital Signs: Last Vital Signs Temp 98.0 F 05/06/18 13:03 Pulse 87 05/06/18 15:05 Resp 17 05/06/18 15:05 BP 164/79 H 05/06/18 15:05 Pulse Ox 100 05/06/18 15:05 - Medical History PMH: Arthritis, Atrial Fibrillation, Cardia Arrhythmia, Diabetes, 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), Gastritis, HTN, Hypercholesterolemia Surgical History: Appendectomy, Coronary Stent, Tonsillectomy Other Surgeries: Colon resection - [facility] Procedures CLOSED ENDOSCOPIC BIOPSY OF LARGE INTESTINE (06/01/14) OTH LYSIS-PERITONEAL ADHES (04/10/13) REVISE SM BOWEL ANASTOM (04/10/13) Family History: States: Unknown Family Hx - Social History Hx Tobacco Use: No Hx Alcohol Use: No Hx Substance Use: No - Immunization History Hx Tetanus Toxoid Vaccination: Yes Hx Influenza Vaccination: Yes Hx Pneumococcal Vaccination: Yes Review Of Systems Except As Marked, All Systems Reviewed And Found Negative. Cardiovascular: Negative for: Chest Pain Respiratory: Negative for: Shortness of Breath Gastrointestinal: Positive for: Nausea, Vomiting, Abdominal Pain. Negative for : Hematemesis Genitourinary: Positive for: Dysuria (Pt states that he is urinating air). Negative for: Scrotal Pain Skin: Negative for: Rash Neurological: Negative for: Weakness, Numbness Physical Exam - Physical Exam Appears: Chronically Ill Skin: Normal Color, Warm, Dry, No Rash Head: Atraumatic, Normacephalic Eye(s): bilateral: Normal Inspection, PERRL, EOMI Neck: Normal ROM, Supple Cardiovascular: Rhythm Regular Respiratory: Normal Breath Sounds, No Accessory Muscle Use Gastrointestinal/Abdominal: Tenderness Back: No CVA Tenderness Male Genital: No Testicular Tenderness, No Testicular Swelling, No Inguinal Tenderness, No Inguinal Swelling, No Scrotal Swelling Extremity: Normal ROM Neurological/Psych: Oriented x3, Normal Motor, Normal Sensation ED Course And Treatment - Laboratory Results Result Diagrams: 05/06/18 13:59 05/06/18 13:59 Lab Interpretation: Abnormal Interpretation Of Abnormal: Leukocytosis O2 Sat by Pulse Oximetry: 100 Pulse Ox Interpretation: Normal Disposition Discussed With : Kandace Martinez Comment: She accepted pt on her service and wanted Dr Torres to be consulted. Pt was also signed out to the Surgery resident business process consultant. Doctor Will See Patient In The: Hospital Counseled Patient/Family Regarding: Studies Performed, Diagnosis - Disposition Disposition: HOSPITALIZED Disposition Time: 18:30 Condition: GUARDED - Clinical Impression Clinical Impression: SBO (small bowel obstruction), UTI (urinary tract infection), Air in urine
--- NOTE | 2018-05-06 19:58 | CP.PCM.HP ---
History of Present Illness - History of Present Illness History of Present Illness: 78 y.o. man with multiple medical problems IDDM2 CAD s/p Stent Atrial Fibrillation Colon Ca with history of Surgical resection, chemo, RT Hypertension Peripheral neuropathy that needed high dose gabapentin came to ER due to acute abdominal pain that was oted early today. patient usually has daily bowelmovement - but this am, patient feel like going but nothing is coing out, patient treid drinking laxatives but didnot work, he tried suppositories , then enemas, all did not work, he started having abdominal cramps with no passage of stool, abdominal pain continue hence was advised to go to ER . in ER CT abdoen showed SBO- hence admission ROS patient denies fever vomiting , has constipation , but has usual BM everyday and if he uses laxatives, in 2 hours he will have BM . patient denies urinary pain. but patient noted having UTI 2 times in 2 months denies syncope, chest pain cough bleeding Surgical History diverticulectomy colon ca with resection small bowel dehesion Cardiac Stent Present on Admission - Present on Admission Any Indicators Present on Admission: Yes History of DVT/PE: No History of Uncontrolled Diabetes: Yes Urinary Catheter: No Decubitus Ulcer Present: No Review of Systems - Constitutional Constitutional: absent: Anorexia, Chills, Fatigue, Fever, Lethargy, Weakness - EENT Eyes: absent: Other Visual Disturbances Ears: absent: Ear Discharge, Ear Pain Nose/Mouth/Throat: absent: Epistaxis, Nasal Congestion, Odynophagia, Sore Throat - Cardiovascular Cardiovascular: absent: Chest Pain, Diaphoresis, Dyspnea, Syncope - Respiratory Respiratory: absent: Cough, Chest Congestion - Gastrointestinal Gastrointestinal: Abdominal Pain, Constipation, Cramping. absent: Vomiting - Genitourinary Genitourinary: absent: Flank Pain (but noted air in urination ), Hematuria - Musculoskeletal Musculoskeletal: absent: Abnormal Gait, Deformity, Joint Swelling, Limited Range of Motion - Integumentary Integumentary: New Lesions. absent: Rash, Sores - Neurological Neurological: absent: Abnormal Gait, Abnormal Hearing, Abnormal Speech, Behavioral Changes, Convulsions, Disequilibrium, Syncope - Psychiatric Psychiatric: absent: Behavioral Changes, Confusion, Depression, Hallucinations, Memory Loss - Endocrine Endocrine: absent: Change in Body Appearance, Palpitations, Polydipsia, Polyphagia - Hematologic/Lymphatic Hematologic: absent: Easy Bleeding, Easy Bruising Past Patient History - Infectious Disease Hx of Infectious Diseases: None - Past Medical History & Family History Past Medical History?: Yes - Past Social History Smoking Status: Never Smoked - CARDIAC Hx Atrial Fibrillation: Yes Hx Cardia Arrhythmia: Yes Hx Hypercholesterolemia: Yes Hx Hypertension: Yes - PULMONARY Hx Respiratory Disorders: No - NEUROLOGICAL Hx Neurological Disorder: Yes Other/Comment: NEUROPATHY - HEENT Hx HEENT Problems: Yes Other/Comment: HX DEVIATED SEPTUM - RENAL Hx Chronic Kidney Disease: No - ENDOCRINE/METABOLIC Hx Diabetes Mellitus Type 2: Yes - HEMATOLOGICAL/ONCOLOGICAL Hx Blood Disorders: Yes Hx Blood Transfusions: Yes Hx Cancer: Yes (COLON) Hx Chemotherapy: Yes (,2003) - INTEGUMENTARY Hx Dermatological Problems: No - MUSCULOSKELETAL/RHEUMATOLOGICAL Hx Arthritis: Yes - GASTROINTESTINAL 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) Hx Gastritis: Yes - GENITOURINARY/GYNECOLOGICAL Hx Genitourinary Disorders: No - PSYCHIATRIC Hx Substance Use: No - SURGICAL HISTORY Hx Appendectomy: Yes Hx Coronary Stent: Yes Hx Tonsillectomy: Yes - ANESTHESIA Hx Anesthesia: Yes Hx Anesthesia Reactions: No Hx Malignant Hyperthermia: No Meds Allergies/Adverse Reactions: Allergies Allergy/AdvReac Type Severity Reaction Status Date / Time No Known Allergies Allergy Verified 05/06/18 13:02 Physical Exam - Constitutional Appears: Non-toxic (awake alert ambulatory) - Head Exam Head Exam: ATRAUMATIC, NORMOCEPHALIC - Eye Exam Eye Exam: Normal appearance. absent: Nystagmus - ENT Exam ENT Exam: Mucous Membranes Moist - Neck Exam Neck exam: Positive for: Full Rom. Negative for: Tenderness - Respiratory Exam Respiratory Exam: Clear to Auscultation Bilateral, NORMAL BREATHING PATTERN - Cardiovascular Exam Cardiovascular Exam: REGULAR RHYTHM - GI/Abdominal Exam GI & Abdominal Exam: Hypoactive Bowel Sounds, Soft, Tenderness (mild). absent: Distended, Firm, Guarding - Extremities Exam Extremities exam: Positive for: full ROM. Negative for: joint swelling, pedal edema - Back Exam Back exam: FULL ROM. absent: rash noted - Neurological Exam Neurological exam: Alert, Normal Gait, Oriented x3 - Psychiatric Exam Psychiatric exam: Normal Affect, Normal Mood - Skin Skin Exam: Intact, Normal Color Results - Vital Signs Recent Vital Signs: Last Vital Signs Temp 98.0 F 05/06/18 13:03 Pulse 87 05/06/18 15:05 Resp 17 05/06/18 15:05 BP 164/79 H 05/06/18 15:05 Pulse Ox 100 05/06/18 18:49 - Labs Result Diagrams: 05/06/18 13:59 05/06/18 13:59 Labs: Laboratory Results - last 24 hr 05/06/18 05/06/18 05/06/18 13:23 13:59 13:59 WBC 23.0 H D RBC 4.29 L Hgb 12.8 Hct 37.6 MCV 87.6 D MCH 29.9 MCHC 34.1 RDW 13.6 Plt Count 255 MPV 8.0 Neut % (Auto) 92.0 H Lymph % (Auto) 2.3 L [place] % (Auto) 5.4 Eos % (Auto) 0.1 Baso % (Auto) 0.2 Neut # (Auto) 21.2 H Lymph # (Auto) 0.5 L [place] # (Auto) 1.2 H Eos # (Auto) 0.0 Baso # (Auto) 0.1 Neutrophils % (Manual) 84 H Band Neutrophils % 9 H Lymphocytes % (Manual) 3 L Monocytes % (Manual) 4 Toxic Granulation Present Platelet Estimate Normal RBC Morphology Normal PT 14.9 H INR 1.4 APTT 41 H Sodium Potassium Chloride Carbon Dioxide Anion Gap BUN Creatinine Est GFR ( Amer) Est GFR (Non-Af Amer) POC Glucose (mg/dL) 232 H Random Glucose Calcium Total Bilirubin AST ALT Alkaline Phosphatase Total Protein Albumin Globulin Albumin/Globulin Ratio Lipase Urine Color Urine Clarity Urine pH Ur Specific [place] Urine Protein Urine Glucose (UA) Urine Ketones Urine Blood Urine Nitrate Urine Bilirubin Urine Urobilinogen Ur Leukocyte Esterase Urine WBC (Auto) Urine RBC (Auto) Ur Squamous Epith Cells Urine Bacteria Hyaline Casts Digoxin 05/06/18 05/06/18 05/06/18 13:59 13:59 15:16 WBC RBC Hgb Hct MCV MCH MCHC RDW Plt Count MPV Neut % (Auto) Lymph % (Auto) [place] % (Auto) Eos % (Auto) Baso % (Auto) Neut # (Auto) Lymph # (Auto) [place] # (Auto) Eos # (Auto) Baso # (Auto) Neutrophils % (Manual) Band Neutrophils % Lymphocytes % (Manual) Monocytes % (Manual) Toxic Granulation Platelet Estimate RBC Morphology PT INR APTT Sodium 141 Potassium 4.9 Chloride 96 L Carbon Dioxide 29 Anion Gap 21 H BUN 23 H Creatinine 1.4 Est GFR ( Amer) 59 Est GFR (Non-Af Amer) 49 POC Glucose (mg/dL) Random Glucose 256 H Calcium 10.1 Total Bilirubin 1.1 AST 42 ALT 51 Alkaline Phosphatase 107 Total Protein 8.9 H Albumin 4.9 Globulin 4.0 H Albumin/Globulin Ratio 1.2 Lipase 48 Urine Color Yellow Urine Clarity Hazy Urine pH 5.0 Ur Specific [place] 1.013 Urine Protein 1+ H Urine Glucose (UA) 3+ H Urine Ketones Negative Urine Blood Negative Urine Nitrate Negative Urine Bilirubin Negative Urine Urobilinogen Normal Ur Leukocyte Esterase 1+ H Urine WBC (Auto) 31 H Urine RBC (Auto) 3 Ur Squamous Epith Cells < 1 Urine Bacteria Rare Hyaline Casts 11-20 H Digoxin 0.7 L Assessment & Plan - Assessment and Plan (Free Text) Assessment: Patient with multiple medical problem aditted for Small Bowel Obstruction with history of colon ca surgery, diverticulectomy , appendectomy, SBO dehesion no current vomiting surgical consultation NPO except meds Rule out Fistula between UBladder and colon with UTI With Sepsis Syndrome cultured antibiotic Urology consult IDDM2- FS monitoring - since patient is NPO, will have no Insulin coverage for now Hypertension- hadnot had BP meds today - further observation and resume meds accordingly CAD -no chest pain GI prophylaxis DVT for SCD, no drug due to impending surgery will monitor, heparin if Okay - Date & Time Date: 05/06/18 Time: 09:00
[2018-05-06 20:30] VITALS: RESP 20
[2018-05-06] MEDS: Sodium Chloride 0.9% 1,000 ML IV SCH (21:55)
--- NOTE | 2018-05-06 22:15 | CP.PCM.CON ---
History of Present Illness - History of Present Illness History of Present Illness: Surgery: Dr. Torres CC: abd pain HPI: 78M w. pmh of a-fib, HTN, CAD, DM, diverticulosis, colon CA, presents to ED w. abdominal pain. Pt states that he experienced sudden onset of diffuse abdominal pain this morning, pain was constant and diffuse. It was accompanied by nausea and vomiting. Pt has been passing intermittent flatus, but has not had BM. He states that he typically has daily BM with the help of lactulose. Pt also has complaints of dysuria, the urine is also dark in color per the pt. In ED, pt had CT done which showed findings concerning for SBO and that was air in bladder concerning for colovesiculo fistula. PMH: See above PSH: Colectomy Meds: MAR reviewed NKDA SOcial: former toboacco, no ETOH/drugs Fhx: non-contributory Review of Systems - Review of Systems All systems: reviewed and no additional remarkable complaints except (hpi) Past Patient History - Infectious Disease Hx of Infectious Diseases: None - Past Medical History & Family History Past Medical History?: Yes - Past Social History Smoking Status: Former Smoker - CARDIAC Hx Atrial Fibrillation: Yes Hx Cardia Arrhythmia: Yes Hx Hypercholesterolemia: Yes Hx Hypertension: Yes - PULMONARY Hx Respiratory Disorders: No - NEUROLOGICAL Hx Neurological Disorder: Yes Other/Comment: NEUROPATHY - HEENT Hx HEENT Problems: Yes Other/Comment: HX DEVIATED SEPTUM - RENAL Hx Chronic Kidney Disease: No - ENDOCRINE/METABOLIC Hx Diabetes Mellitus Type 2: Yes - HEMATOLOGICAL/ONCOLOGICAL Hx Blood Disorders: Yes Hx Blood Transfusions: Yes Hx Cancer: Yes (COLON) Hx Chemotherapy: Yes (,2003) - INTEGUMENTARY Hx Dermatological Problems: No - MUSCULOSKELETAL/RHEUMATOLOGICAL Hx Arthritis: Yes Hx Falls: No - GASTROINTESTINAL 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) Hx Gastritis: Yes - GENITOURINARY/GYNECOLOGICAL Hx Genitourinary Disorders: No - PSYCHIATRIC Hx Substance Use: No - SURGICAL HISTORY Hx Appendectomy: Yes Hx Coronary Stent: Yes Hx Tonsillectomy: Yes - ANESTHESIA Hx Anesthesia: Yes Hx Anesthesia Reactions: No Hx Malignant Hyperthermia: No Meds Allergies/Adverse Reactions: Allergies Allergy/AdvReac Type Severity Reaction Status Date / Time No Known Allergies Allergy Verified 05/06/18 13:02 - Medications Medications: Current Medications Gabapentin (Neurontin) 300 mg PO TID [facility] Piperacillin Sod/Tazobactam Sod (Zosyn 3.375 Gm Iv Premix) 3.375 gm in 50 mls @ 100 mls/hr IVPB Q6 [facility] PRN Reason: Protocol Sodium Chloride (Sodium Chloride 0.9%) 1,000 mls @ 100 mls/hr IV .Q10H [facility] Last Admin: 05/06/18 21:55 Dose: 100 mls/hr Pantoprazole Sodium (Protonix Inj) 40 mg IVP DAILY [facility] Physical Exam - Constitutional Appears: Non-toxic, No Acute Distress - Head Exam Head Exam: ATRAUMATIC, NORMOCEPHALIC - Eye Exam Eye Exam: EOMI - ENT Exam ENT Exam: Mucous Membranes Moist, Normal External Ear Exam - Neck Exam Neck exam: Positive for: Full Rom - Respiratory Exam Respiratory Exam: NORMAL BREATHING PATTERN. absent: Accessory Muscle Use, Respiratory Distress - GI/Abdominal Exam GI & Abdominal Exam: Soft, Tenderness (diffuse). absent: Distended, Firm, Guarding, Rebound, Rigid - Extremities Exam Extremities exam: Negative for: calf tenderness, pedal edema - Neurological Exam Neurological exam: Alert, Oriented x3 - Psychiatric Exam Psychiatric exam: Normal Affect, Normal Mood Results - Vital Signs Recent Vital Signs: Last Vital Signs Temp 98.3 F 05/06/18 20:29 Pulse 89 05/06/18 20:29 Resp 20 05/06/18 20:29 BP 138/66 05/06/18 20:29 Pulse Ox 98 05/06/18 20:29 - Labs Result Diagrams: 05/06/18 13:59 05/06/18 13:59 Labs: Laboratory Results - last 24 hr 05/06/18 05/06/18 05/06/18 13:23 13:59 13:59 WBC 23.0 H D RBC 4.29 L Hgb 12.8 Hct 37.6 MCV 87.6 D MCH 29.9 MCHC 34.1 RDW 13.6 Plt Count 255 MPV 8.0 Neut % (Auto) 92.0 H Lymph % (Auto) 2.3 L [place] % (Auto) 5.4 Eos % (Auto) 0.1 Baso % (Auto) 0.2 Neut # (Auto) 21.2 H Lymph # (Auto) 0.5 L [place] # (Auto) 1.2 H Eos # (Auto) 0.0 Baso # (Auto) 0.1 Neutrophils % (Manual) 84 H Band Neutrophils % 9 H Lymphocytes % (Manual) 3 L Monocytes % (Manual) 4 Toxic Granulation Present Platelet Estimate Normal RBC Morphology Normal PT 14.9 H INR 1.4 APTT 41 H Sodium Potassium Chloride Carbon Dioxide Anion Gap BUN Creatinine Est GFR ( Amer) Est GFR (Non-Af Amer) POC Glucose (mg/dL) 232 H Random Glucose Calcium Total Bilirubin AST ALT Alkaline Phosphatase Total Protein Albumin Globulin Albumin/Globulin Ratio Lipase Urine Color Urine Clarity Urine pH Ur Specific [place] Urine Protein Urine Glucose (UA) Urine Ketones Urine Blood Urine Nitrate Urine Bilirubin Urine Urobilinogen Ur Leukocyte Esterase Urine WBC (Auto) Urine RBC (Auto) Ur Squamous Epith Cells Urine Bacteria Hyaline Casts Digoxin 05/06/18 05/06/18 05/06/18 13:59 13:59 15:16 WBC RBC Hgb Hct MCV MCH MCHC RDW Plt Count MPV Neut % (Auto) Lymph % (Auto) [place] % (Auto) Eos % (Auto) Baso % (Auto) Neut # (Auto) Lymph # (Auto) [place] # (Auto) Eos # (Auto) Baso # (Auto) Neutrophils % (Manual) Band Neutrophils % Lymphocytes % (Manual) Monocytes % (Manual) Toxic Granulation Platelet Estimate RBC Morphology PT INR APTT Sodium 141 Potassium 4.9 Chloride 96 L Carbon Dioxide 29 Anion Gap 21 H BUN 23 H Creatinine 1.4 Est GFR ( Amer) 59 Est GFR (Non-Af Amer) 49 POC Glucose (mg/dL) Random Glucose 256 H Calcium 10.1 Total Bilirubin 1.1 AST 42 ALT 51 Alkaline Phosphatase 107 Total Protein 8.9 H Albumin 4.9 Globulin 4.0 H Albumin/Globulin Ratio 1.2 Lipase 48 Urine Color Yellow Urine Clarity Hazy Urine pH 5.0 Ur Specific [place] 1.013 Urine Protein 1+ H Urine Glucose (UA) 3+ H Urine Ketones Negative Urine Blood Negative Urine Nitrate Negative Urine Bilirubin Negative Urine Urobilinogen Normal Ur Leukocyte Esterase 1+ H Urine WBC (Auto) 31 H Urine RBC (Auto) 3 Ur Squamous Epith Cells < 1 Urine Bacteria Rare Hyaline Casts 11-20 H Digoxin 0.7 L - Imaging and Cardiology CT scan - abdomen Status: Image reviewed by me, Report reviewed by me Assessment & Plan - Assessment and Plan (Free Text) Assessment: 78M w. SBO and possible colovesiculo fistula -Conservative management for SBO -NPO, IVF, serial abd exams -will place NGT if symptoms worsen -f/u GI and urology recommendations -No urgent surgical intervention at this time, however pt will need medical clearance if he has colovesiculo fistula requiring resection -d/w attending Rosey PGY4
[2018-05-07] MEDS: Piperacill/Tazo 3.375gm in Dex 3.375 GM/50 ML BAG IVPB SCH ×4 (00:02→18:14)
--- NOTE | 2018-05-07 07:00 | CP.PCM.PN ---
Subjective - Date & Time of Evaluation Date of Evaluation: 05/07/18 Time of Evaluation: 07:30 - Subjective Subjective: Chart reviewed afebrile kept on NPO vitals stable patient seen had BM this am and feels like he is going again no vomiting no fever no other event Objective - Vital Signs/Intake and Output Vital Signs (last 24 hours): Temp Pulse Resp BP Pulse Ox 98.4 F 75 20 127/58 L 99 05/07/18 00:00 05/07/18 00:00 05/07/18 00:00 05/07/18 00:00 05/07/18 00:00 Intake and Output: 05/06/18 05/07/18 18:59 06:59 Intake Total 950 Output Total 600 Balance 350 - Medications Medications: Current Medications Digoxin (Lanoxin) 0.25 mg PO DAILY@1800 [facility] Gabapentin (Neurontin) 300 mg PO TID [facility] Heparin Sodium (Porcine) (Heparin) 5,000 units SC Q12 [facility] Piperacillin Sod/Tazobactam Sod (Zosyn 3.375 Gm Iv Premix) 3.375 gm in 50 mls @ 100 mls/hr IVPB Q6 [facility] PRN Reason: Protocol Last Admin: 05/07/18 05:38 Dose: 100 mls/hr Sodium Chloride (Sodium Chloride 0.9%) 1,000 mls @ 100 mls/hr IV .Q10H [facility] Last Admin: 05/06/18 21:55 Dose: 100 mls/hr Metoprolol Succinate (Toprol Xl) 25 mg PO DAILY [facility] Pantoprazole Sodium (Protonix Inj) 40 mg IVP DAILY [facility] - Labs Labs: 05/06/18 13:59 05/06/18 13:59 PT 14.9 SECONDS (9.7-12.2) H 05/06/18 13:59 INR 1.4 05/06/18 13:59 APTT 41 SECONDS (21-34) H 05/06/18 13:59 - Constitutional Appears: Non-toxic, No Acute Distress - Head Exam Head Exam: ATRAUMATIC, NORMOCEPHALIC - Eye Exam Eye Exam: Normal appearance. absent: Nystagmus - ENT Exam ENT Exam: Mucous Membranes Moist - Neck Exam Neck Exam: Full ROM. absent: Tenderness - Respiratory Exam Respiratory Exam: Clear to Ausculation Bilateral, NORMAL BREATHING PATTERN - Cardiovascular Exam Cardiovascular Exam: Irregular Rhythm - GI/Abdominal Exam GI & Abdominal Exam: Soft, Tenderness (vague ), Hypoactive Bowel Sounds - Extremities Exam Extremities Exam: Full ROM. absent: Joint Swelling, Pedal Edema - Back Exam Back Exam: Full ROM - Neurological Exam Neurological Exam: Alert, Normal Gait - Psychiatric Exam Psychiatric exam: Normal Affect, Normal Mood - Skin Skin Exam: Intact, Normal Color Assessment and Plan - Assessment and Plan (Free Text) Assessment: patient with multipe medical probles admitted for SBO- with spontaneous BM movement - will observe with feeding presnce of urinary air - consulted Urology for evaluation r/o fistula no surgical intervention IDDM2- off insulin due to NPO_admission's possible surgical status since patient had BM- will start diet Recurrent UTI - on antibiotic - urology eval to rule out fistula, reminded nurse /follow up hypertension - meds- BP on the low side normal , adjust accordingly CAD with no chest symptoms AFIB , Xarelto on hold- awaiting urology plan for above GI prophylaxis DVT prophylaxis
[2018-05-07] MEDS: Sodium Chloride 0.9% 1,000 ML IV SCH ×3 (09:18→22:45)
[2018-05-07] MEDS: Metoprolol Succinate 25 mg XL Tab PO SCH (10:51)
--- NOTE | 2018-05-07 11:53 | CARD ---
APPROVED REPORT Date of service: 05/06/2018 EKG Measurement Heart [id number] <Conclusion> Atrial fibrillation Nonspecific ST abnormality Abnormal ECG
--- NOTE | 2018-05-07 12:24 | CP.PCM.PN ---
Subjective - Date & Time of Evaluation Date of Evaluation: 05/07/18 Time of Evaluation: 06:00 - Subjective Subjective: Patient seen and examined. No acute events over night. Afebrile. Review of vitals is stable. Objective - Vital Signs/Intake and Output Vital Signs (last 24 hours): Temp Pulse Resp BP Pulse Ox 99.3 F 72 20 135/61 98 05/07/18 08:07 05/07/18 08:07 05/07/18 08:07 05/07/18 08:07 05/07/18 08:07 Intake and Output: 05/07/18 05/07/18 06:59 18:59 Intake Total 950 Output Total 600 Balance 350 - Medications Medications: Current Medications Digoxin (Lanoxin) 0.25 mg PO DAILY@1800 [facility] Gabapentin (Neurontin) 300 mg PO TID [facility] Last Admin: 05/07/18 10:51 Dose: 300 mg Heparin Sodium (Porcine) (Heparin) 5,000 units SC Q12 [facility] Last Admin: 05/07/18 10:52 Dose: 5,000 units Piperacillin Sod/Tazobactam Sod (Zosyn 3.375 Gm Iv Premix) 3.375 gm in 50 mls @ 100 mls/hr IVPB Q6 [facility] PRN Reason: Protocol Last Admin: 05/07/18 12:01 Dose: 100 mls/hr Sodium Chloride (Sodium Chloride 0.9%) 1,000 mls @ 100 mls/hr IV .Q10H [facility] Last Admin: 05/07/18 09:18 Dose: 100 mls/hr Metoprolol Succinate (Toprol Xl) 25 mg PO DAILY [facility] Last Admin: 05/07/18 10:51 Dose: 25 mg Pantoprazole Sodium (Protonix Inj) 40 mg IVP DAILY [facility] Last Admin: 05/07/18 10:51 Dose: 40 mg - Labs Labs: 05/06/18 13:59 05/06/18 13:59 PT 14.9 SECONDS (9.7-12.2) H 05/06/18 13:59 INR 1.4 05/06/18 13:59 APTT 41 SECONDS (21-34) H 05/06/18 13:59 - Constitutional Appears: Non-toxic - Head Exam Head Exam: NORMOCEPHALIC - Eye Exam Eye Exam: Normal appearance - ENT Exam ENT Exam: Mucous Membranes Moist - Respiratory Exam Respiratory Exam: NORMAL BREATHING PATTERN - Cardiovascular Exam Cardiovascular Exam: +S1, +S2 - GI/Abdominal Exam GI & Abdominal Exam: Soft, Tenderness - Neurological Exam Neurological Exam: Alert, Awake, Oriented x3 - Psychiatric Exam Psychiatric exam: Normal Mood - Skin Skin Exam: Dry Assessment and Plan - Assessment and Plan (Free Text) Assessment: 78M w. SBO and possible colovesiculo fistula Plan: -Conservative management for SBO -NPO, IVF, serial abd exams -will place NGT if symptoms worsen -Recommend colonoscopy -No urgent surgical intervention at this time, however pt will need medical clearance if he has colovesiculo fistula requiring resection -D/w Dr. Brian Borges PGY3
--- NOTE | 2018-05-07 13:03 | CP.PCM.CON ---
History of Present Illness - History of Present Illness History of Present Illness: CC: abdominal pain HPI: GI consult requested on this 78 year old man admitted yesterday with acute lower abdominal pain. Patient is known to Dr Wiseman, last colonoscopy was 2013 and showed right hemicolectomy, few trasverse colon diverticula, left colon resection. Prior right colon resection in 2003 for colon cancer, and also left colon resection was subsequently done for diverticulitis. Patient also has history of surgical resection for SBO due to adhesions. Patient was doing well until yesterday when he suddenly could not have a bowel movement and had diffuse lower abdominal pain. CT shows suspicion of SBO without a clear transition point, as well as presence of air in the bladder, raising a suspicion of fistula. Of note, the patient had 2 episodes of UTIs, dysuria, discolored urine. Marked leukocytosis, and pyuria were noted on admission and patient was begun on Zosyn. Labs were not done today. Patient today feeels better, and had a BM. He is chronically dependent on Lactulose at home. Review of Systems - Constitutional Constitutional: absent: Anorexia, Chills, Fever, Weight Loss - EENT Eyes: absent: Change in Vision Ears: absent: Decreased Hearing Nose/Mouth/Throat: absent: Nasal Discharge - Cardiovascular Cardiovascular: absent: Chest Pain - Respiratory Respiratory: absent: Cough, Dyspnea - Gastrointestinal Gastrointestinal: Abdominal Pain, Constipation, Vomiting - Genitourinary Genitourinary: Dysuria - Musculoskeletal Musculoskeletal: absent: Back Pain - Integumentary Integumentary: absent: Jaundice - Neurological Neurological: Paresthesias - Psychiatric Psychiatric: absent: Anxiety, Depression - Endocrine Endocrine: absent: Polydipsia Past Patient History - Infectious Disease Hx of Infectious Diseases: None - Past Medical History & Family History Past Medical History?: Yes - Past Social History Smoking Status: Never Smoked - CARDIAC Hx Atrial Fibrillation: Yes Hx Cardia Arrhythmia: Yes Hx Hypercholesterolemia: Yes Hx Hypertension: Yes - PULMONARY Hx Respiratory Disorders: No - NEUROLOGICAL Hx Neurological Disorder: Yes Other/Comment: NEUROPATHY - HEENT Hx HEENT Problems: Yes Other/Comment: HX DEVIATED SEPTUM - RENAL Hx Chronic Kidney Disease: No - ENDOCRINE/METABOLIC Hx Diabetes Mellitus Type 2: Yes - HEMATOLOGICAL/ONCOLOGICAL Hx Blood Disorders: Yes Hx Blood Transfusions: Yes Hx Cancer: Yes (COLON) Hx Chemotherapy: Yes (,2003) - INTEGUMENTARY Hx Dermatological Problems: No - MUSCULOSKELETAL/RHEUMATOLOGICAL Hx Arthritis: Yes - GASTROINTESTINAL 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) Hx Gastritis: Yes - GENITOURINARY/GYNECOLOGICAL Hx Genitourinary Disorders: No - PSYCHIATRIC Hx Substance Use: No - SURGICAL HISTORY Hx Appendectomy: Yes Hx Coronary Stent: Yes Hx Tonsillectomy: Yes - ANESTHESIA Hx Anesthesia: Yes Hx Anesthesia Reactions: No Hx Malignant Hyperthermia: No Meds Allergies/Adverse Reactions: Allergies Allergy/AdvReac Type Severity Reaction Status Date / Time No Known Allergies Allergy Verified 05/06/18 13:02 - Medications Medications: Current Medications Digoxin (Lanoxin) 0.25 mg PO DAILY@1800 [facility] Gabapentin (Neurontin) 300 mg PO TID [facility] Last Admin: 05/07/18 10:51 Dose: 300 mg Heparin Sodium (Porcine) (Heparin) 5,000 units SC Q12 [facility] Last Admin: 05/07/18 10:52 Dose: 5,000 units Piperacillin Sod/Tazobactam Sod (Zosyn 3.375 Gm Iv Premix) 3.375 gm in 50 mls @ 100 mls/hr IVPB Q6 [facility] PRN Reason: Protocol Last Admin: 05/07/18 12:01 Dose: 100 mls/hr Sodium Chloride (Sodium Chloride 0.9%) 1,000 mls @ 100 mls/hr IV .Q10H [facility] Last Admin: 05/07/18 09:18 Dose: 100 mls/hr Metoprolol Succinate (Toprol Xl) 25 mg PO DAILY [facility] Last Admin: 05/07/18 10:51 Dose: 25 mg Pantoprazole Sodium (Protonix Inj) 40 mg IVP DAILY [facility] Last Admin: 05/07/18 10:51 Dose: 40 mg Physical Exam - Constitutional Appears: Well, No Acute Distress - Head Exam Head Exam: NORMOCEPHALIC - Eye Exam Eye Exam: absent: Scleral icterus - ENT Exam ENT Exam: Normal Exam - Neck Exam Neck exam: Positive for: Normal Inspection - Respiratory Exam Respiratory Exam: Clear to Auscultation Bilateral - Cardiovascular Exam Cardiovascular Exam: Irregular Rhythm - GI/Abdominal Exam GI & Abdominal Exam: Normal Bowel Sounds, Soft. absent: Distended, Guarding, Mass, Tenderness - Rectal Exam Rectal Exam: Deferred - Back Exam Back exam: NORMAL INSPECTION - Neurological Exam Neurological exam: Alert, Oriented x3 - Psychiatric Exam Psychiatric exam: Normal Affect, Normal Mood - Skin Skin Exam: Normal Color Results - Vital Signs Recent Vital Signs: Last Vital Signs Temp 99.3 F 05/07/18 08:07 Pulse 72 05/07/18 08:07 Resp 20 05/07/18 08:07 BP 135/61 05/07/18 08:07 Pulse Ox 98 05/07/18 08:07 - Labs Result Diagrams: 05/06/18 13:59 05/06/18 13:59 Labs: Laboratory Results - last 24 hr 05/06/18 05/06/18 05/06/18 13:23 13:59 13:59 WBC 23.0 H D RBC 4.29 L Hgb 12.8 Hct 37.6 MCV 87.6 D MCH 29.9 MCHC 34.1 RDW 13.6 Plt Count 255 MPV 8.0 Neut % (Auto) 92.0 H Lymph % (Auto) 2.3 L [place] % (Auto) 5.4 Eos % (Auto) 0.1 Baso % (Auto) 0.2 Neut # (Auto) 21.2 H Lymph # (Auto) 0.5 L [place] # (Auto) 1.2 H Eos # (Auto) 0.0 Baso # (Auto) 0.1 Neutrophils % (Manual) 84 H Band Neutrophils % 9 H Lymphocytes % (Manual) 3 L Monocytes % (Manual) 4 Toxic Granulation Present Platelet Estimate Normal RBC Morphology Normal PT 14.9 H INR 1.4 APTT 41 H Sodium Potassium Chloride Carbon Dioxide Anion Gap BUN Creatinine Est GFR ( Amer) Est GFR (Non-Af Amer) POC Glucose (mg/dL) 232 H Random Glucose Calcium Total Bilirubin AST ALT Alkaline Phosphatase Total Protein Albumin Globulin Albumin/Globulin Ratio Lipase Urine Color Urine Clarity Urine pH Ur Specific [place] Urine Protein Urine Glucose (UA) Urine Ketones Urine Blood Urine Nitrate Urine Bilirubin Urine Urobilinogen Ur Leukocyte Esterase Urine WBC (Auto) Urine RBC (Auto) Ur Squamous Epith Cells Urine Bacteria Hyaline Casts Digoxin 05/06/18 05/06/18 05/06/18 13:59 13:59 15:16 WBC RBC Hgb Hct MCV MCH MCHC RDW Plt Count MPV Neut % (Auto) Lymph % (Auto) [place] % (Auto) Eos % (Auto) Baso % (Auto) Neut # (Auto) Lymph # (Auto) [place] # (Auto) Eos # (Auto) Baso # (Auto) Neutrophils % (Manual) Band Neutrophils % Lymphocytes % (Manual) Monocytes % (Manual) Toxic Granulation Platelet Estimate RBC Morphology PT INR APTT Sodium 141 Potassium 4.9 Chloride 96 L Carbon Dioxide 29 Anion Gap 21 H BUN 23 H Creatinine 1.4 Est GFR ( Amer) 59 Est GFR (Non-Af Amer) 49 POC Glucose (mg/dL) Random Glucose 256 H Calcium 10.1 Total Bilirubin 1.1 AST 42 ALT 51 Alkaline Phosphatase 107 Total Protein 8.9 H Albumin 4.9 Globulin 4.0 H Albumin/Globulin Ratio 1.2 Lipase 48 Urine Color Yellow Urine Clarity Hazy Urine pH 5.0 Ur Specific [place] 1.013 Urine Protein 1+ H Urine Glucose (UA) 3+ H Urine Ketones Negative Urine Blood Negative Urine Nitrate Negative Urine Bilirubin Negative Urine Urobilinogen Normal Ur Leukocyte Esterase 1+ H Urine WBC (Auto) 31 H Urine RBC (Auto) 3 Ur Squamous Epith Cells < 1 Urine Bacteria Rare Hyaline Casts 11-20 H Digoxin 0.7 L 05/06/18 05/07/18 05/07/18 22:50 07:10 11:23 WBC RBC Hgb Hct MCV MCH MCHC RDW Plt Count MPV Neut % (Auto) Lymph % (Auto) [place] % (Auto) Eos % (Auto) Baso % (Auto) Neut # (Auto) Lymph # (Auto) [place] # (Auto) Eos # (Auto) Baso # (Auto) Neutrophils % (Manual) Band Neutrophils % Lymphocytes % (Manual) Monocytes % (Manual) Toxic Granulation Platelet Estimate RBC Morphology PT INR APTT Sodium Potassium Chloride Carbon Dioxide Anion Gap BUN Creatinine Est GFR ( Amer) Est GFR (Non-Af Amer) POC Glucose (mg/dL) 150 H 196 H 216 H Random Glucose Calcium Total Bilirubin AST ALT Alkaline Phosphatase Total Protein Albumin Globulin Albumin/Globulin Ratio Lipase Urine Color Urine Clarity Urine pH Ur Specific [place] Urine Protein Urine Glucose (UA) Urine Ketones Urine Blood Urine Nitrate Urine Bilirubin Urine Urobilinogen Ur Leukocyte Esterase Urine WBC (Auto) Urine RBC (Auto) Ur Squamous Epith Cells Urine Bacteria Hyaline Casts Digoxin Assessment & Plan (1) Small bowel obstruction Assessment and Plan: Partial SBO Clinically improved today Status: Acute (2) UTI (urinary tract infection) Assessment and Plan: Recurrent consult pending Status: Acute (3) Abdominal pain Assessment and Plan: SBO, UTI, chronic constipation Status: Acute (4) Atrial fibrillation Assessment and Plan: managed by PCP Status: Acute (5) History of malignant neoplasm of colon Assessment and Plan: S/P resection in 2003. Last colonoscopy 4 years ago Elective colonoscopy as outpatient will be planned Status: Acute
[2018-05-07] MEDS ORDERED: Digoxin 250 mcg (0.25 mg) Tab PO SCH (18:00)
[2018-05-07 18:16] VITALS: PULSE 62
[2018-05-08] MEDS: Piperacill/Tazo 3.375gm in Dex 3.375 GM/50 ML BAG IVPB SCH ×3 (00:16→12:17)
[2018-05-08] MEDS: Sodium Chloride 0.9% 1,000 ML IV SCH ×2 (06:08→14:00)
--- NOTE | 2018-05-08 07:25 | CP.PCM.PN ---
Subjective - Date & Time of Evaluation Date of Evaluation: 05/08/18 Time of Evaluation: 07:22 - Subjective Subjective: General Surgery Progress Note for Dr. Torres 78M seen and evaluated this AM. No acute events overnight. Pt states he had 4 BM and passing flatus. Has not been ambulating. Denies f/c, n/v/d, SOB, CP, or urinary symptoms. Objective - Vital Signs/Intake and Output Vital Signs (last 24 hours): Temp Pulse Resp BP Pulse Ox 97.4 F L 61 20 128/60 95 05/08/18 00:00 05/08/18 00:00 05/08/18 00:00 05/08/18 00:00 05/08/18 00:00 Intake and Output: 05/08/18 05/08/18 06:59 18:59 Intake Total 1400 Balance 1400 - Medications Medications: Current Medications Digoxin (Lanoxin) 0.25 mg PO DAILY@1800 [facility] Last Admin: 05/07/18 18:12 Dose: 0.25 mg Gabapentin (Neurontin) 300 mg PO TID [facility] Last Admin: 05/07/18 18:16 Dose: 300 mg Heparin Sodium (Porcine) (Heparin) 5,000 units SC Q12 [facility] Last Admin: 05/07/18 22:44 Dose: 5,000 units Piperacillin Sod/Tazobactam Sod (Zosyn 3.375 Gm Iv Premix) 3.375 gm in 50 mls @ 100 mls/hr IVPB Q6 [facility] PRN Reason: Protocol Last Admin: 05/08/18 06:07 Dose: 100 mls/hr Sodium Chloride (Sodium Chloride 0.9%) 1,000 mls @ 100 mls/hr IV .Q10H [facility] Last Admin: 05/08/18 06:08 Dose: 100 mls/hr Metoprolol Succinate (Toprol Xl) 25 mg PO DAILY [facility] Last Admin: 05/07/18 10:51 Dose: 25 mg Pantoprazole Sodium (Protonix Inj) 40 mg IVP DAILY [facility] Last Admin: 05/07/18 10:51 Dose: 40 mg - Labs Labs: 05/06/18 13:59 05/06/18 13:59 PT 14.9 SECONDS (9.7-12.2) H 05/06/18 13:59 INR 1.4 05/06/18 13:59 APTT 41 SECONDS (21-34) H 05/06/18 13:59 - Constitutional Appears: Well, Non-toxic, No Acute Distress - Head Exam Head Exam: ATRAUMATIC, NORMAL INSPECTION, NORMOCEPHALIC - Eye Exam Eye Exam: EOMI, Normal appearance - Respiratory Exam Respiratory Exam: Clear to Ausculation Bilateral, NORMAL BREATHING PATTERN - Cardiovascular Exam Cardiovascular Exam: REGULAR RHYTHM, +S1, +S2. absent: Murmur - GI/Abdominal Exam GI & Abdominal Exam: Soft, Normal Bowel Sounds. 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 Brian Morales PGY1
[2018-05-08 08:10] LABS: BASO % 0.5 % (0.0-2.0); EOS # 0.2 K/uL (0.0-0.7); EOS % 2.1 % (0.0-4.0); HEMOGLOBIN 11.2 g/dL (12.0-18.0); LYMPH # 1.2 K/uL (1.0-4.3); LYMPH % 12.9 % (20.0-40.0); MEAN CELL VOLUME 89.1 fL (80.0-94.0); MEAN CORPUSCULAR HGB CONC 33.6 g/dL (33.0-37.0); MEAN PLATELET VOLUME 9.3 fL (7.2-11.7); MONO # 0.5 K/uL (0.0-0.8); MONO % 5.7 % (0.0-10.0); NEUT # 7.3 K/uL (1.8-7.0); NEUT % 78.8 % (50.0-75.0); NRBC % 0.2 % (0.0-2.0); RBC 3.75 Mil/uL (4.40-5.90); RED CELL DISTRIBUTION WIDTH 13.7 % (11.5-14.5)
[2018-05-08 08:21] LABS: WHITE BLOOD COUNT 9.3 K/uL (4.8-10.8)
[2018-05-08 08:36] LABS: ALB/GLOB RATIO 1.2 (1.0-2.1); ALBUMIN 3.7 g/dL (3.5-5.0); ALT/SGPT 29 U/L (21-72); AST/SGOT 40 U/L (17-59); BLOOD UREA NITROGEN 14 mg/dL (9-20); CALCIUM 7.8 mg/dl (8.6-10.4); GFR AFRICAN-AMERICAN > 60; GFR NON-AFRICAN AMERICAN > 60
[2018-05-08 09:14] VITALS: BP 167/67; PULSE 55; TEMP 97.9; O2SAT 100
--- NOTE | 2018-05-08 09:53 | CP.PCM.PN ---
Subjective - Date & Time of Evaluation Date of Evaluation: 05/08/18 Time of Evaluation: 09:51 - Subjective Subjective: multiple BMs Tolerating diet No abdominal pain Objective - Vital Signs/Intake and Output Vital Signs (last 24 hours): Temp Pulse Resp BP Pulse Ox 97.9 F 55 L 20 167/67 H 100 05/08/18 09:13 05/08/18 09:13 05/08/18 09:13 05/08/18 09:13 05/08/18 09:13 Intake and Output: 05/08/18 05/08/18 06:59 18:59 Intake Total 1400 Balance 1400 - Medications Medications: Current Medications Digoxin (Lanoxin) 0.25 mg PO DAILY@1800 [facility] Last Admin: 05/07/18 18:12 Dose: 0.25 mg Gabapentin (Neurontin) 300 mg PO TID [facility] Last Admin: 05/07/18 18:16 Dose: 300 mg Heparin Sodium (Porcine) (Heparin) 5,000 units SC Q12 [facility] Last Admin: 05/07/18 22:44 Dose: 5,000 units Piperacillin Sod/Tazobactam Sod (Zosyn 3.375 Gm Iv Premix) 3.375 gm in 50 mls @ 100 mls/hr IVPB Q6 [facility] PRN Reason: Protocol Last Admin: 05/08/18 06:07 Dose: 100 mls/hr Sodium Chloride (Sodium Chloride 0.9%) 1,000 mls @ 100 mls/hr IV .Q10H [facility] Last Admin: 05/08/18 06:08 Dose: 100 mls/hr Metoprolol Succinate (Toprol Xl) 25 mg PO DAILY [facility] Last Admin: 05/07/18 10:51 Dose: 25 mg Pantoprazole Sodium (Protonix Inj) 40 mg IVP DAILY [facility] Last Admin: 05/07/18 10:51 Dose: 40 mg - Labs Labs: 05/08/18 07:56 05/08/18 07:56 PT 14.9 SECONDS (9.7-12.2) H 05/06/18 13:59 INR 1.4 05/06/18 13:59 APTT 41 SECONDS (21-34) H 05/06/18 13:59 - Head Exam Head Exam: NORMOCEPHALIC - Respiratory Exam Respiratory Exam: NORMAL BREATHING PATTERN - GI/Abdominal Exam GI & Abdominal Exam: Soft. absent: Tenderness Assessment and Plan (1) Small bowel obstruction Assessment & Plan: Clinically resolved Status: Acute (2) UTI (urinary tract infection) Assessment & Plan: management per Dr Dillard Status: Acute (3) Abdominal pain Status: Acute (4) Atrial fibrillation Status: Acute (5) History of malignant neoplasm of colon Assessment & Plan: Patient/spouse advised to follow up in office with Dr Wiseman for Colonoscopy Status: Acute
--- NOTE | 2018-05-08 10:31 | CP.PCM.PN ---
Subjective - Date & Time of Evaluation Date of Evaluation: 05/08/18 Time of Evaluation: 08:50 - Subjective Subjective: Chart reviewed no unusual event vitals stable Glucose noted still NPO discussion with Dr Mohr Patient seen had 5 time BM , slight abdominal discomfort no vomiting no fever on antibiotic for UTI still NPO spoke with Dr Mohr and discussed with patient no further urology procedure at this time will see patient thursday in Dr Mohr 's clinic fontenot of home today discussed will advance diet accordingly Objective - Vital Signs/Intake and Output Vital Signs (last 24 hours): Temp Pulse Resp BP Pulse Ox 97.9 F 55 L 20 167/67 H 100 05/08/18 09:13 05/08/18 09:13 05/08/18 09:13 05/08/18 09:13 05/08/18 09:13 Intake and Output: 05/08/18 05/08/18 06:59 18:59 Intake Total 1400 Balance 1400 - Medications Medications: Current Medications Digoxin (Lanoxin) 0.25 mg PO DAILY@1800 [facility] Last Admin: 05/07/18 18:12 Dose: 0.25 mg Gabapentin (Neurontin) 300 mg PO TID [facility] Last Admin: 05/07/18 18:16 Dose: 300 mg Heparin Sodium (Porcine) (Heparin) 5,000 units SC Q12 [facility] Last Admin: 05/07/18 22:44 Dose: 5,000 units Piperacillin Sod/Tazobactam Sod (Zosyn 3.375 Gm Iv Premix) 3.375 gm in 50 mls @ 100 mls/hr IVPB Q6 [facility] PRN Reason: Protocol Last Admin: 05/08/18 06:07 Dose: 100 mls/hr Sodium Chloride (Sodium Chloride 0.9%) 1,000 mls @ 100 mls/hr IV .Q10H [facility] Last Admin: 05/08/18 06:08 Dose: 100 mls/hr Metoprolol Succinate (Toprol Xl) 25 mg PO DAILY [facility] Last Admin: 05/07/18 10:51 Dose: 25 mg Pantoprazole Sodium (Protonix Inj) 40 mg IVP DAILY [facility] Last Admin: 05/07/18 10:51 Dose: 40 mg - Labs Labs: 05/08/18 07:56 05/08/18 07:56 PT 14.9 SECONDS (9.7-12.2) H 05/06/18 13:59 INR 1.4 05/06/18 13:59 APTT 41 SECONDS (21-34) H 05/06/18 13:59 - Constitutional Appears: Well, Non-toxic - Head Exam Head Exam: ATRAUMATIC, NORMOCEPHALIC - Eye Exam Eye Exam: Normal appearance. absent: Nystagmus - ENT Exam ENT Exam: Mucous Membranes Moist - Neck Exam Neck Exam: Full ROM. absent: Tenderness - Respiratory Exam Respiratory Exam: Clear to Ausculation Bilateral, NORMAL BREATHING PATTERN - Cardiovascular Exam Cardiovascular Exam: Irregular Rhythm - GI/Abdominal Exam GI & Abdominal Exam: Normal Bowel Sounds - Extremities Exam Extremities Exam: Full ROM. absent: Pedal Edema - Neurological Exam Neurological Exam: Alert, Awake, Normal Gait, Oriented x3 - Psychiatric Exam Psychiatric exam: Normal Affect, Normal Mood - Skin Skin Exam: Intact, Normal Color Assessment and Plan - Assessment and Plan (Free Text) Assessment: Patient admitted for SBO- resolved spontaneously UTI- on antibiotic- air in bladder discussion with Urology- no further procedure at this time- but will see patient in the clinic this thursday IDDM2- on NPO- resume meds as soon as feeding Hypertension- adjust medications History of colon ca CAD with stent stable A FIB controlled advance diet and plan for home discussion with staff
[2018-05-08] MEDS: Metoprolol Succinate 25 mg XL Tab PO SCH (10:32)
--- NOTE | 2018-05-08 15:49 | CP.PCM.PN ---
Subjective - Date & Time of Evaluation Date of Evaluation: 05/08/18 Time of Evaluation: 15:40 - Subjective Subjective: [employer] NOTES Patient seen today, denies any abdominal pain, N/V. tolerated diet - (clear liquid and advanced to soft diet )without any problems D/W Dr. Martinez cleared for discharge home today and f/u with Dr. Dillard office on Thursday and Dr. Martinez office next week, continue cipro x 5 days Discharge plan discussed with patient and family at bed side , who understands and agrees with plan Patient instructed to returns to ED if symptoms return or any other concerning symptoms Objective - Vital Signs/Intake and Output Vital Signs (last 24 hours): Temp Pulse Resp BP Pulse Ox 97.9 F 55 L 20 167/67 H 100 05/08/18 09:13 05/08/18 09:13 05/08/18 09:13 05/08/18 09:13 05/08/18 09:13 Intake and Output: 05/08/18 05/08/18 06:59 18:59 Intake Total 1400 Balance 1400 - Medications Medications: Current Medications Digoxin (Lanoxin) 0.25 mg PO DAILY@1800 [facility] Last Admin: 05/07/18 18:12 Dose: 0.25 mg Gabapentin (Neurontin) 300 mg PO TID [facility] Last Admin: 05/08/18 14:18 Dose: 300 mg Heparin Sodium (Porcine) (Heparin) 5,000 units SC Q12 [facility] Last Admin: 05/08/18 10:32 Dose: 5,000 units Piperacillin Sod/Tazobactam Sod (Zosyn 3.375 Gm Iv Premix) 3.375 gm in 50 mls @ 100 mls/hr IVPB Q6 [facility] PRN Reason: Protocol Last Admin: 05/08/18 12:17 Dose: 100 mls/hr Sodium Chloride (Sodium Chloride 0.9%) 1,000 mls @ 100 mls/hr IV .Q10H [facility] Last Admin: 05/08/18 14:00 Dose: Not Given Metoprolol Succinate (Toprol Xl) 25 mg PO DAILY [facility] Last Admin: 05/08/18 10:32 Dose: 25 mg Pantoprazole Sodium (Protonix Inj) 40 mg IVP DAILY [facility] Last Admin: 05/08/18 10:32 Dose: 40 mg - Labs Labs: 05/08/18 07:56 05/08/18 07:56 PT 14.9 SECONDS (9.7-12.2) H 05/06/18 13:59 INR 1.4 05/06/18 13:59 APTT 41 SECONDS (21-34) H 05/06/18 13:59
== END 2018-05-08 17:15 | disposition home or self-care (01) | DRG 389 ==
LOC: C.ER 12:58 → C.9E 18:49 → C.3T 19:40
PROVIDERS: ADMIT Internal Medicine; ATTEND Internal Medicine
DX: K56.600 Partial intestinal obstruction, unspecified as to cause (principal); N39.0 Urinary tract infection, site not specified; E11.9 Type 2 diabetes mellitus without complications; E78.00 Pure hypercholesterolemia, unspecified; I10 Essential (primary) hypertension; I25.10 Atherosclerotic heart disease of native coronary artery without angina pectoris; I48.91 Unspecified atrial fibrillation; Z79.4 Long term (current) use of insulin; Z85.038 Personal history of other malignant neoplasm of large intestine; Z90.49 Acquired absence of other specified parts of digestive tract; Z95.5 Presence of coronary angioplasty implant and graft; Z87.891 Personal history of nicotine dependence

== ENCOUNTER 2018-06-10 08:11 | Day surgery (SDC) | payer MEDICARE ==
[2018-06-10 09:08] VITALS: O2SAT 100
[2018-06-10] MEDS ORDERED: Propofol 10 mg/ml Inj (20 ML) ONE (10:06)
--- NOTE | 2018-06-10 10:19 | CP.SDSHP ---
Same Day Surgery H & P - History Proposed Procedure: colonosocpy Pre-Op Diagnosis: colon cancer history, bladder-colon fistula - Previous Medical/Surgical History Endocrine/Metabolic: Diabetes - Allergies Allergies: Allergies No Known Allergies Allergy (Verified 06/09/18 14:13) - Physical Exam Vital Signs: Vital Signs 06/10/18 08:57 Temperature 989 F H Pulse Rate 80 Respiratory 20 Rate Blood Pressure 151/79 H O2 Sat by Pulse 100 Oximetry Mental Status: Alert & Oriented x3 Neuro: WNL Heart: WNL Lungs: WNL GI: WNL - {Optional Preform as Required} Abdomen: WNL - Impression Impression: colon cancer history Pt. Evaluated Today:Candidate for Anesthesia & Procedure: Yes - Date & Time Date: 06/10/18 Time: 10:10 Short Stay Discharge - Short Stay Discharge Admitting Diagnosis/Reason for Visit: H/O/ COLON CA Disposition: HOME/ ROUTINE
[2018-06-10 11:28] VITALS: TEMP 98.4
[2018-06-10 13:18] VITALS: BP 131/65; PULSE 71; RESP 15
== END 2018-06-10 12:10 | disposition home or self-care (01) ==
LOC: C.ENDO 08:11
PROVIDERS: ATTEND Internal Medicine Gastroenterology
DX: Z12.11 Encounter for screening for malignant neoplasm of colon (principal); D12.8 Benign neoplasm of rectum; Z85.038 Personal history of other malignant neoplasm of large intestine; E11.9 Type 2 diabetes mellitus without complications
CPT/HCPCS: 45380; 45385; 82948; 88305; J2704; J3010

== ENCOUNTER 2018-07-27 17:02 | Inpatient (IN) | payer MEDICARE ==
[2018-07-27 17:02] VITALS: BMI 20.7
[2018-07-27 18:38] LABS: BASO % 0.3 % (0.0-2.0); EOS # 0.1 K/uL (0.0-0.7); EOS % 0.6 % (0.0-4.0); HEMOGLOBIN 10.5 g/dL (12.0-18.0); LYMPH # 1.1 K/uL (1.0-4.3); LYMPH % 10.2 % (20.0-40.0); MEAN CELL VOLUME 88.1 fL (80.0-94.0); MEAN CORPUSCULAR HEMOGLOBIN 30.7 pg (27.0-31.0); MEAN CORPUSCULAR HGB CONC 34.8 g/dL (33.0-37.0); MEAN PLATELET VOLUME 7.9 fL (7.2-11.7); MONO # 1.3 K/uL (0.0-0.8); MONO % 12.1 % (0.0-10.0); NEUT # 7.9 K/uL (1.8-7.0); NEUT % 76.8 % (50.0-75.0); NRBC % 0.1 % (0.0-2.0); RBC 3.43 Mil/uL (4.40-5.90); RED CELL DISTRIBUTION WIDTH 14.2 % (11.5-14.5); WHITE BLOOD COUNT 10.4 K/uL (4.8-10.8)
[2018-07-27 18:46] LABS: URINE BACTERIA MANY (<OCC); URINE BILIRUBIN NEGATIVE (NEGATIVE); URINE BLOOD 3+ (NEGATIVE); URINE CLARITY Hazy (Clear); URINE COLOR Yellow (YELLOW); URINE GLUCOSE (UA) 2+ mg/dL (Normal); URINE LEUKOCYTE ESTERASE 3+ Leu/uL (Negative); URINE PROTEIN 1+ mg/dL (NEGATIVE); URINE UROBILINOGEN NORMAL mg/dL (0.2-1.0); WBC CLUMPS FEW /hpf
[2018-07-27 18:49] LABS: ALB/GLOB RATIO 1.1 (1.0-2.1); ALBUMIN 4.1 g/dL (3.5-5.0); ALT/SGPT 37 U/L (21-72); AST/SGOT 27 U/L (17-59); BLOOD UREA NITROGEN 20 mg/dL (9-20); GFR NON-AFRICAN AMERICAN 53; LIPASE 61 U/L (23-300)
[2018-07-27] MEDS ORDERED: cefTRIAXone IV 1 gm in Dextros 50 ML IV ONE (19:11)
[2018-07-27] MEDS ORDERED: cefTRIAXone 1 gm 1 GM/100 ML BAG IVPB ONE (19:59)
[2018-07-27] MEDS ORDERED: Ciprofloxacin 400mg/200ml D5W 0 MG/0 ML BAG IVPB ONE (19:59)
--- NOTE | 2018-07-27 20:32 | C.PDOC ---
History Of Present Illness 78 y/o male, w/PMhx of colon cancer with repair, presents to the ER complaining of right lower posterior abdominal pain and subjective fever. Patient states that he had UTI in June 2018. Denies having fever, chills, nausea, vom iting, dysuria, and hematuria. Time Seen by Provider: 07/27/18 18:14 Chief Complaint (Nursing): Male Genitourinary History Per: Patient History/Exam Limitations: no limitations Onset/Duration Of Symptoms: Days Current Symptoms Are (Timing): Still Present Severity: Moderate Past Medical History Reviewed: Historical Data, Nursing Documentation, Vital Signs Vital Signs: Last Vital Signs Temp 98.2 F 07/27/18 20:10 Pulse 108 H 07/27/18 20:10 Resp 16 07/27/18 20:10 BP 128/54 L 07/27/18 20:10 Pulse Ox 98 07/27/18 20:10 - Medical History PMH: Arthritis, Atrial Fibrillation, Cardia Arrhythmia (A-FIB cardiac stent), Diabetes, 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 ), Gastritis, HTN, Hypercholesterolemia Denies: Chronic Kidney Disease Surgical History: Appendectomy, Coronary Stent, Tonsillectomy - [facility] Procedures CLOSED ENDOSCOPIC BIOPSY OF LARGE INTESTINE (06/01/14) OTH LYSIS-PERITONEAL ADHES (04/10/13) REVISE SM BOWEL ANASTOM (04/10/13) Family History: States: No Known Family Hx - Social History Hx Tobacco Use: No Hx Alcohol Use: No Hx Substance Use: No - Immunization History Hx Tetanus Toxoid Vaccination: Yes Hx Influenza Vaccination: Yes (06/2018) Hx Pneumococcal Vaccination: Yes Review Of Systems Except As Marked, All Systems Reviewed And Found Negative. Constitutional: Positive for: Fever (subjective fever). Negative for: Chills Gastrointestinal: Positive for: Abdominal Pain. Negative for: Nausea, Vomiting Genitourinary: Negative for: Dysuria, Hematuria Physical Exam - Physical Exam Appears: Non-toxic, No Acute Distress, Other (thin) Skin: Normal Color, Warm, Dry Head: Atraumatic, Normacephalic Eye(s): bilateral: Normal Inspection Nose: Normal Oral Mucosa: Moist Neck: Supple Chest: Symmetrical Cardiovascular: Rhythm Regular Respiratory: Normal Breath Sounds, No Rales, No Rhonchi, No Wheezing Gastrointestinal/Abdominal: Normal Exam, Soft, No Tenderness, No Guarding, No Rebound Back: No CVA Tenderness, Other (mild tenderness in right sacroiliac region) Neurological/Psych: Oriented x3, Normal Speech ED Course And Treatment - Laboratory Results Result Diagrams: 07/27/18 18:33 07/27/18 18:33 O2 Sat by Pulse Oximetry: 98 (RA) Pulse Ox Interpretation: Normal Medical Decision Making Medical Decision Makin:40 Case discussed with . recommends admission. Disposition Doctor Will See Patient In The: Hospital Counseled Patient/Family Regarding: Studies Performed, Diagnosis - Disposition Disposition: HOSPITALIZED Disposition Time: 16:00 Condition: GOOD - Clinical Impression Clinical Impression: UTI (urinary tract infection) - Scribe Statement The provider has reviewed the documentation as recorded by the Judith Pink Provider Attestation: All medical record entries made by the Viniibe were at my direction and personally dictated by me. I have reviewed the chart and agree that the record accurately reflects my personal performance of the history, physical exam, medical decision making, and the department course for this patient. I have also personally directed, reviewed, and agree with the discharge instructions and disposition.
--- NOTE | 2018-07-27 22:12 | CP.PCM.HP ---
History of Present Illness - History of Present Illness History of Present Illness: a case of 78 y.o. male , [facility] with multiple medical problems IDDM2 Hypertension Colon Ca s/p surgery SBO Atrial Fibrillation Persistent UTI admitted due to one day fever and chills that is temporarily relieved by antipyretic. patient reports flank pain on both sides. patient denies unusual cough /other respiratory symptoms, phlegm vomiting abdominal pain diarrhea, dysuria, no chest pain no headache, no dizzines. In ER, urine shows positive for esterase WBC, RBC bacteria, abdominal US is pending. patient is admitted for further evaluation and management ROS as above, plus cloudy urine PMH as above multiple admissions for SBO that resolves spontaneously recent hospitalizations for Hematuria, UTI , recent colonoscopy and Urology evaluations Present on Admission - Present on Admission Any Indicators Present on Admission: Yes History of DVT/PE: No History of Uncontrolled Diabetes: Yes Urinary Catheter: No Decubitus Ulcer Present: No Review of Systems - Constitutional Constitutional: Chills, Fever. absent: Fatigue, Lethargy, Weakness - EENT Eyes: absent: Other Visual Disturbances Ears: absent: Ear Pain, Abnormal Hearing, Dizziness Nose/Mouth/Throat: Nasal Congestion, Sore Throat - Cardiovascular Cardiovascular: Chest Pain, Dyspnea, Syncope - Respiratory Respiratory: Cough. absent: Chest Congestion - Gastrointestinal Gastrointestinal: Abdominal Pain, Change in Stool Character (small soft ), Diarrhea, Vomiting - Genitourinary Genitourinary: Other (cloudy urine ). absent: Difficulty Urinating, Dysuria - Musculoskeletal Musculoskeletal: Back Pain. absent: Abnormal Gait - Integumentary Integumentary: Skin Ulcer. absent: Rash, Sores - Neurological Neurological: Abnormal Gait. absent: Abnormal Hearing, Behavioral Changes, Convulsions, Dizziness, Headaches, Syncope - Psychiatric Psychiatric: Auditory Hallucinations, Behavioral Changes, Confusion, Depression - Endocrine Endocrine: Fatigue, Palpitations - Hematologic/Lymphatic Hematologic: Easy Bleeding, Easy Bruising Past Patient History - Infectious Disease Hx of Infectious Diseases: None - Past Medical History & Family History Past Medical History?: Yes - Past Social History Smoking Status: Never Smoked - CARDIAC Hx Atrial Fibrillation: Yes Hx Cardia Arrhythmia: Yes (A-FIB cardiac stent) Hx Hypercholesterolemia: Yes Hx Hypertension: Yes - PULMONARY Hx Respiratory Disorders: No - NEUROLOGICAL Hx Neurological Disorder: Yes Other/Comment: DM NEUROPATHY - HEENT Hx HEENT Problems: Yes Other/Comment: HX DEVIATED SEPTUM, CATARACT, THROAT INFECTION - RENAL Hx Chronic Kidney Disease: No - ENDOCRINE/METABOLIC Hx Endocrine Disorders: Yes Hx Diabetes Mellitus Type 1: Yes Hx Diabetes Mellitus Type 2: Yes - HEMATOLOGICAL/ONCOLOGICAL Hx Blood Disorders: Yes Hx Blood Transfusions: Yes Hx Blood Transfusion Reaction: No Hx Cancer: Yes (COLON) Hx Chemotherapy: Yes (2003) - INTEGUMENTARY Hx Dermatological Problems: No Other/Comment: occasional dry/ itchy spots generalized. 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 ) Hx Gastritis: Yes - GENITOURINARY/GYNECOLOGICAL Hx Genitourinary Disorders: Yes Hx Incontinence: Yes (AT TIMES) Hx Prostate Problems: Yes (BPH) - PSYCHIATRIC Hx Substance Use: No - SURGICAL HISTORY Hx Appendectomy: Yes Hx Coronary Stent: Yes Hx Tonsillectomy: Yes - ANESTHESIA Hx Anesthesia: Yes Hx Anesthesia Reactions: No Hx Malignant Hyperthermia: No Meds Allergies/Adverse Reactions: Allergies Allergy/AdvReac Type Severity Reaction Status Date / Time No Known Allergies Allergy Verified 07/27/18 17:13 Physical Exam - Constitutional Appears: Well, Non-toxic, No Acute Distress ( but has chills ) - Head Exam Head Exam: ATRAUMATIC, NORMOCEPHALIC - Eye Exam Eye Exam: Normal appearance - ENT Exam ENT Exam: Mucous Membranes Moist - Neck Exam Neck exam: Positive for: Full Rom. Negative for: Tenderness - Respiratory Exam Respiratory Exam: Clear to Auscultation Bilateral, NORMAL BREATHING PATTERN - Cardiovascular Exam Cardiovascular Exam: Irregular Rhythm - GI/Abdominal Exam GI & Abdominal Exam: Normal Bowel Sounds, Soft. absent: Tenderness (but patient reports flank pain) - Extremities Exam Extremities exam: Positive for: full ROM, pedal pulses present. Negative for: joint swelling, pedal edema, tenderness - Back Exam Back exam: FULL ROM. absent: muscle spasm, rash noted (patient reports flank pain , but vague tenderness) - Neurological Exam Neurological exam: Alert, Normal Gait, Oriented x3 - Psychiatric Exam Psychiatric exam: Normal Affect, Normal Mood - Skin Skin Exam: Intact, Normal Color Results - Vital Signs Recent Vital Signs: Last Vital Signs Temp 98.2 F 07/27/18 20:10 Pulse 108 H 07/27/18 20:10 Resp 16 07/27/18 20:43 BP 128/54 L 07/27/18 20:10 Pulse Ox 98 07/27/18 20:40 - Labs Result Diagrams: 07/27/18 18:33 07/27/18 18:33 Labs: Laboratory Results - last 24 hr 07/27/18 07/27/18 07/27/18 18:33 18:33 18:33 WBC 10.4 RBC 3.43 L Hgb 10.5 L Hct 30.2 L MCV 88.1 MCH 30.7 MCHC 34.8 RDW 14.2 Plt Count 221 MPV 7.9 Neut % (Auto) 76.8 H Lymph % (Auto) 10.2 L [place] % (Auto) 12.1 H Eos % (Auto) 0.6 Baso % (Auto) 0.3 Neut # (Auto) 7.9 H Lymph # (Auto) 1.1 [place] # (Auto) 1.3 H Eos # (Auto) 0.1 Baso # (Auto) 0.0 Sodium 133 Potassium 4.8 Chloride 94 L Carbon Dioxide 28 Anion Gap 16 BUN 20 Creatinine 1.3 Est GFR ( Amer) > 60 Est GFR (Non-Af Amer) 53 POC Glucose (mg/dL) Random Glucose 169 H Calcium 9.0 Total Bilirubin 0.6 AST 27 ALT 37 Alkaline Phosphatase 87 Total Protein 7.8 Albumin 4.1 Globulin 3.6 Albumin/Globulin Ratio 1.1 Lipase 61 Urine Color Yellow Urine Clarity Hazy Urine pH 5.0 Ur Specific [place] 1.005 Urine Protein 1+ H Urine Glucose (UA) 2+ H Urine Ketones Negative Urine Blood 3+ H Urine Nitrate Negative Urine Bilirubin Negative Urine Urobilinogen Normal Ur Leukocyte Esterase 3+ H Urine WBC (Auto) 459 H Urine RBC (Auto) 7 H Urine WBC Clumps (Auto) Few H Urine Bacteria Many H Digoxin 07/27/18 07/27/18 20:03 21:23 WBC RBC Hgb Hct MCV MCH MCHC RDW Plt Count MPV Neut % (Auto) Lymph % (Auto) [place] % (Auto) Eos % (Auto) Baso % (Auto) Neut # (Auto) Lymph # (Auto) [place] # (Auto) Eos # (Auto) Baso # (Auto) Sodium Potassium Chloride Carbon Dioxide Anion Gap BUN Creatinine Est GFR ( Amer) Est GFR (Non-Af Amer) POC Glucose (mg/dL) 255 H Random Glucose Calcium Total Bilirubin AST ALT Alkaline Phosphatase Total Protein Albumin Globulin Albumin/Globulin Ratio Lipase Urine Color Urine Clarity Urine pH Ur Specific [place] Urine Protein Urine Glucose (UA) Urine Ketones Urine Blood Urine Nitrate Urine Bilirubin Urine Urobilinogen Ur Leukocyte Esterase Urine WBC (Auto) Urine RBC (Auto) Urine WBC Clumps (Auto) Urine Bacteria Digoxin < 0.4 L Assessment & Plan - Assessment and Plan (Free Text) Assessment: Patient with history of uncontrolled IDDM2 Hypertension Atrial fibrillation Colon ca-s/p surgery persistent Abnormal urine findings admitted for Fever and chills with again abnormal urine /UTI, and flank pain cultures abdominal ultrasound Urology consult continue other meds heart healthy diet GI prphylaxis Accuchecks with coverage adjust Insulin accordingly - Date & Time Date: 07/27/18 Time: 06:00
[2018-07-27] MEDS: Ciprofloxacin 400mg/200ml D5W 400 MG/200 ML BAG IVPB SCH (22:57)
[2018-07-27] MEDS: (Novolog) Insulin Aspart, Recombinant 100 u/ml 10 ml vial SC SCH (23:09)
[2018-07-27] MEDS: Insulin Detemir 100 units/ml Vial (Levemir) SC SCH (23:09)
[2018-07-28 00:01] VITALS: RESP 20
[2018-07-28] MEDS: (Novolog) Insulin Aspart, Recombinant 100 u/ml 10 ml vial SC SCH ×4 (07:49→21:32)
--- NOTE | 2018-07-28 08:43 | CP.PCM.PN ---
Subjective - Date & Time of Evaluation Date of Evaluation: 07/28/18 Time of Evaluation: 09:00 - Subjective Subjective: chart review BP stable had Fever no vomiting no diarrhea started on antibiotic Patient seen ambulatory- went for abdominal Ultrasound reports no complaint other than slight dysuria last night. noted stool soft , will monitor goes tp bathroom appetite is normal condition discussed Objective - Vital Signs/Intake and Output Vital Signs (last 24 hours): Temp Pulse Resp BP Pulse Ox 98.7 F 78 20 125/62 97 07/28/18 07:36 07/28/18 07:36 07/28/18 07:36 07/28/18 07:36 07/28/18 07:36 Intake and Output: 07/28/18 07/28/18 06:59 18:59 Intake Total 200 Balance 200 - Medications Medications: Current Medications Digoxin (Lanoxin) 0.25 mg PO DAILY@1800 [facility] Gabapentin (Neurontin) 300 mg PO TID [facility] Ciprofloxacin (Cipro 400mg/200ml Dsw) 400 mg in 200 mls @ 133 mls/hr IVPB Q12H [facility]; Protocol Stop: 07/30/18 22:31 Last Admin: 07/27/18 22:57 Dose: 133 mls/hr Insulin Aspart (Novolog) 0 unit SC ACHS [facility]; Protocol Last Admin: 07/28/18 07:49 Dose: Not Given Insulin Detemir (Levemir) 30 unit SC HS [facility] Last Admin: 07/27/18 23:09 Dose: Not Given Lactulose (Enulose) 30 gm PO DAILY PRN PRN Reason: Constipation Losartan Potassium (Cozaar) 50 mg PO DAILY [facility] Metoclopramide HCl (Reglan) 5 mg PO Q8 PRN PRN Reason: Nausea/Vomiting Metoprolol Succinate (Toprol Xl) 25 mg PO DAILY [facility] Pantoprazole Sodium (Protonix Inj) 40 mg IVP DAILY [facility] Rivaroxaban (Xarelto) 20 mg PO DAILY [facility] Rosuvastatin Calcium (Crestor) 5 mg PO HS [facility] Tamsulosin HCl (Flomax) 0.4 mg PO DAILY [facility] - Labs Labs: 07/27/18 18:33 07/27/18 18:33 - Constitutional Appears: Non-toxic, No Acute Distress - Head Exam Head Exam: ATRAUMATIC, NORMOCEPHALIC - Eye Exam Eye Exam: Normal appearance. absent: Nystagmus - ENT Exam ENT Exam: Mucous Membranes Moist - Neck Exam Neck Exam: Full ROM. absent: Tenderness - Respiratory Exam Respiratory Exam: Clear to Ausculation Bilateral, NORMAL BREATHING PATTERN - Cardiovascular Exam Cardiovascular Exam: Irregular Rhythm - GI/Abdominal Exam GI & Abdominal Exam: Soft, Normal Bowel Sounds. absent: Tenderness - Extremities Exam Extremities Exam: Full ROM, Normal Inspection. absent: Joint Swelling, Pedal Edema, Tenderness - Back Exam Back Exam: tenderness. absent: rash noted - Neurological Exam Neurological Exam: Alert, Awake, Normal Gait, Oriented x3 - Psychiatric Exam Psychiatric exam: Normal Affect, Normal Mood - Skin Skin Exam: Intact, Normal Color Assessment and Plan - Assessment and Plan (Free Text) Assessment: Patient with history of Colon Ca post surgery years ago admitted for fever and chills with UTI findings, culture pending on antibiotic abdominal US- unremarkable chronic and persistent abnormal urine findings urology consult post colonoscopy recently - no mention of fistula IDDM2- on insulin and coverage Hypertension- controlled CAD-/ Afib- on meds on xarelto continue antibiotic , further observation
[2018-07-28] MEDS: Metoprolol Succinate 25 mg XL Tab PO SCH (09:22)
[2018-07-28] MEDS: Ciprofloxacin 400mg/200ml D5W 400 MG/200 ML BAG IVPB SCH ×2 (09:55→21:33)
[2018-07-28] MEDS ORDERED: Ciprofloxacin 400mg/200ml D5W 400 MG/200 ML BAG IVPB SCH (10:00)
--- NOTE | 2018-07-28 11:10 | RAD ---
Date of service: 07/27/2018 PROCEDURE: Radiographs of the chest and abdomen (obstructive series) HISTORY: abd pain COMPARISON: No prior. TECHNIQUE: AP radiograph of the chest, with upright and supine radiographs of the abdomen. FINDINGS: CHEST: Lungs: Linear calcific density at lateral right lung base consistent with known calcified pleural plaque. No infiltrate.. Cardiovascular: Normal size heart. No pulmonary vascular congestion. Pleura: No pleural fluid. No pneumothorax. Other findings: None. ABDOMEN AND PELVIS: Bowel: Unremarkable bowel gas pattern. No evidence of mechanical obstruction. Free air: None. Bones: Unremarkable. Other findings: None. IMPRESSION: No infiltrate. Asbestos related pleural disease.
--- NOTE | 2018-07-28 11:37 | US ---
Date of service: 07/28/2018 HISTORY: r/o pyelonephritis COMPARISON: None. TECHNIQUE: Sonographic evaluation of the abdomen. FINDINGS: LIVER: Measures 12.5 cm. Normal echogenicity of the liver parenchyma. No mass. No intrahepatic bile duct dilatation. GALLBLADDER: Cholelithiasis. No mural thickening. No pericholecystic fluid. Negative sonographic Lewis sign. COMMON BILE DUCT: Measures 5 mm. No stones. No dilatation. PANCREAS: Unremarkable as visualized. No mass. No ductal dilatation. RIGHT KIDNEY: Measures 11.7cm. Normal echogenicity. No calculus, mass, or hydronephrosis. LEFT KIDNEY: Measures 11.2cm. Normal echogenicity. No calculus, mass, or hydronephrosis. SPLEEN: Normal in size and contour. No mass. AORTA: No aneurysmal dilatation. IVC: Unremarkable. OTHER FINDINGS: None. IMPRESSION: Cholelithiasis without sonographic evidence of cholecystitis. Otherwise unremarkable examination.
--- NOTE | 2018-07-28 13:14 | CARD ---
APPROVED REPORT Date of service: 07/27/2018 EKG Measurement Heart [id number] <Conclusion> Atrial fibrillation Abnormal ECG
[2018-07-28 17:04] VITALS: PULSE 67
[2018-07-28] MEDS ORDERED: Digoxin 250 mcg (0.25 mg) Tab PO SCH (18:00)
[2018-07-28] MEDS: Insulin Detemir 100 units/ml Vial (Levemir) SC SCH (21:25)
[2018-07-29 06:45] LABS: SQUAMOUS EPITHIAL < 1 /hpf (0-5); URINE BILIRUBIN NEGATIVE (NEGATIVE); URINE CLARITY Clear (Clear); URINE COLOR Yellow (YELLOW); URINE GLUCOSE (UA) 3+ mg/dL (Normal); URINE LEUKOCYTE ESTERASE 2+ Leu/uL (Negative); URINE PROTEIN NEGATIVE (NEGATIVE); URINE UROBILINOGEN NORMAL mg/dL (0.2-1.0)
[2018-07-29 06:47] LABS: URINE BLOOD TRACE (NEGATIVE)
[2018-07-29] MEDS: (Novolog) Insulin Aspart, Recombinant 100 u/ml 10 ml vial SC SCH ×2 (07:41→11:42)
[2018-07-29] MEDS ORDERED: Insulin Detemir 100 units/ml Vial (Levemir) SC SCH (08:38)
--- NOTE | 2018-07-29 08:42 | CP.PCM.PN ---
Subjective - Date & Time of Evaluation Date of Evaluation: 07/29/18 Time of Evaluation: 09:30 - Subjective Subjective: Chart review afebrile vitals noted blood culture negative urine-positive rods discussion with Urology -further evaluation ongoing discussion with regarding findings urine remained positive-persistently sugar on the high side on Insulin -with history of uncontrolled DM patient seen ambulatory no complaint appetite good last BM yesterday discussion of above labs Objective - Vital Signs/Intake and Output Vital Signs (last 24 hours): Temp Pulse Resp BP Pulse Ox 98.5 F 78 20 144/74 100 07/29/18 07:34 07/29/18 07:34 07/29/18 07:34 07/29/18 07:34 07/29/18 07:34 Intake and Output: 07/29/18 07/29/18 06:59 18:59 Intake Total 450 Output Total 300 Balance 150 - Medications Medications: Current Medications Digoxin (Lanoxin) 0.25 mg PO DAILY@1800 [facility] Last Admin: 07/28/18 17:03 Dose: 0.25 mg Gabapentin (Neurontin) 300 mg PO TID [facility] Last Admin: 07/28/18 17:03 Dose: 300 mg Ciprofloxacin (Cipro 400mg/200ml Dsw) 400 mg in 200 mls @ 133 mls/hr IVPB Q12H [facility]; Protocol Stop: 07/30/18 22:31 Last Admin: 07/28/18 21:33 Dose: 133 mls/hr Insulin Aspart (Novolog) 0 unit SC ACHS [facility]; Protocol Last Admin: 07/29/18 07:41 Dose: Not Given Insulin Detemir (Levemir) [address] [facility] Lactulose (Enulose) 30 gm PO DAILY PRN PRN Reason: Constipation Losartan Potassium (Cozaar) 50 mg PO DAILY [facility] Last Admin: 07/28/18 09:22 Dose: 50 mg Metoclopramide HCl (Reglan) 5 mg PO Q8 PRN PRN Reason: Nausea/Vomiting Metoprolol Succinate (Toprol Xl) 25 mg PO DAILY [facility] Last Admin: 07/28/18 09:22 Dose: 25 mg Pantoprazole Sodium (Protonix Inj) 40 mg IVP DAILY [facility] Last Admin: 07/28/18 09:22 Dose: 40 mg Rivaroxaban (Xarelto) 20 mg PO DAILY [facility] Last Admin: 07/28/18 09:22 Dose: 20 mg Rosuvastatin Calcium (Crestor) 5 mg PO HS [facility] Last Admin: 07/28/18 21:29 Dose: 5 mg Tamsulosin HCl (Flomax) 0.4 mg PO DAILY [facility] Last Admin: 07/28/18 09:22 Dose: 0.4 mg - Labs Labs: 07/27/18 18:33 07/27/18 18:33 - Constitutional Appears: Non-toxic, No Acute Distress - Head Exam Head Exam: ATRAUMATIC, NORMOCEPHALIC - Eye Exam Eye Exam: Normal appearance - ENT Exam ENT Exam: Mucous Membranes Moist - Respiratory Exam Respiratory Exam: Clear to Ausculation Bilateral, NORMAL BREATHING PATTERN - Cardiovascular Exam Cardiovascular Exam: Irregular Rhythm - GI/Abdominal Exam GI & Abdominal Exam: Soft, Normal Bowel Sounds. absent: Tenderness - Extremities Exam Extremities Exam: Full ROM. absent: Joint Swelling, Pedal Edema - Back Exam Back Exam: tenderness - Neurological Exam Neurological Exam: Alert, Awake, Normal Gait, Oriented x3 - Psychiatric Exam Psychiatric exam: Normal Affect, Normal Mood - Skin Skin Exam: Intact, Normal Color Assessment and Plan - Assessment and Plan (Free Text) Assessment: IDDM2- will adjust insulin , Education Plan: Patient with Fever chills flank pain and abnormal urine- treated with antibiotic, culture confirmed, US unremarkable no pyelonephritis, Urologist saw patient- no further procedure- to be seen as out patient IDDM2- uncontrolled - discuss, education , Insulin adjustment Hypertension- continue meds AFIb- no symptoms on meds plan for home
[2018-07-29] MEDS: Metoprolol Succinate 25 mg XL Tab PO SCH (09:24)
[2018-07-29] MEDS ORDERED: Pantoprazole 40 mg EC Tab PO SCH (10:00)
[2018-07-29] MEDS: Ciprofloxacin 400mg/200ml D5W 400 MG/200 ML BAG IVPB SCH (10:29)
[2018-07-29 16:04] VITALS: BP 128/55; PULSE 67; TEMP 98.3
--- NOTE | 2018-07-29 17:15 | CP.PCM.PN ---
Subjective - Date & Time of Evaluation Date of Evaluation: 07/29/18 Time of Evaluation: 17:15 - Subjective Subjective: alert, oriented, no cute distress, NAD. Objective - Vital Signs/Intake and Output Vital Signs (last 24 hours): Temp Pulse Resp BP Pulse Ox 98.3 F 67 20 128/55 L 100 07/29/18 16:02 07/29/18 16:02 07/29/18 16:02 07/29/18 16:02 07/29/18 16:02 Intake and Output: 07/29/18 07/29/18 06:59 18:59 Intake Total 450 Output Total 300 Balance 150 - Medications Medications: Current Medications Digoxin (Lanoxin) 0.25 mg PO DAILY@1800 [facility] Last Admin: 07/28/18 17:03 Dose: 0.25 mg Gabapentin (Neurontin) 300 mg PO TID [facility] Last Admin: 07/29/18 13:08 Dose: 300 mg Ciprofloxacin (Cipro 400mg/200ml Dsw) 400 mg in 200 mls @ 133 mls/hr IVPB Q12H [facility]; Protocol Stop: 07/30/18 22:31 Last Admin: 07/29/18 10:29 Dose: 133 mls/hr Insulin Aspart (Novolog) 0 unit SC [facility]; Protocol Last Admin: 07/29/18 11:42 Dose: 3 units Insulin Detemir (Levemir) 35 unit SC [facility] Lactulose (Enulose) 30 gm PO DAILY PRN PRN Reason: Constipation Losartan Potassium (Cozaar) 50 mg PO DAILY [facility] Last Admin: 07/29/18 09:24 Dose: 50 mg Metoclopramide HCl (Reglan) 5 mg PO Q8 PRN PRN Reason: Nausea/Vomiting Metoprolol Succinate (Toprol Xl) 25 mg PO DAILY [facility] Last Admin: 07/29/18 09:24 Dose: 25 mg Pantoprazole Sodium (Protonix Ec Tab) 40 mg PO DAILY [facility] Last Admin: 07/29/18 09:24 Dose: 40 mg Rivaroxaban (Xarelto) 20 mg PO DAILY [facility] Last Admin: 07/29/18 09:25 Dose: 20 mg Rosuvastatin Calcium (Crestor) 5 mg PO HS [facility] Last Admin: 07/28/18 21:29 Dose: 5 mg Tamsulosin HCl (Flomax) 0.4 mg PO DAILY [facility] Last Admin: 07/29/18 09:24 Dose: 0.4 mg - Labs Labs: 07/27/18 18:33 07/27/18 18:33 Assessment and Plan - Assessment and Plan (Free Text) Assessment: Patient admitted with UTI, abdominal pain, seen and examined. Alert and oriented x3, denies any pain. On cipro iv sensitive to the organism. Discussed with DR Gonzalez, plan to discharge home on po cipro for 7 days. Advised to follow up in the office in 1 week. Will continue with all the meds at home. Advised to bring all the meds to the office for review.
--- NOTE | 2018-07-29 18:06 | CP.PCM.DIS ---
Provider - Provider Date of Admission: 07/27/18 19:14 Attending physician: Kandace Martinez MD Time Spent in preparation of Discharge (in minutes): 30 Hospital Course - Lab Results Lab Results: Micro Results 07/27/18 19:56 Urine Urine Culture - Final Klebsiella Pneumoniae Ssp Pneu 07/27/18 07:00 Blood-Venous Blood Culture - Preliminary NO GROWTH AFTER 24 HOURS 07/27/18 07:00 Blood-Venous Blood Culture - Preliminary NO GROWTH AFTER 24 HOURS Most Recent Lab Values WBC 10.4 K/uL (4.8-10.8) 07/27/18 18:33 RBC 3.43 Mil/uL (4.40-5.90) L 07/27/18 18:33 Hgb 10.5 g/dL (12.0-18.0) L 07/27/18 18:33 Hct 30.2 % (35.0-51.0) L 07/27/18 18:33 MCV 88.1 fL (80.0-94.0) 07/27/18 18:33 MCH 30.7 pg (27.0-31.0) 07/27/18 18:33 MCHC 34.8 g/dL (33.0-37.0) 07/27/18 18:33 RDW 14.2 % (11.5-14.5) 07/27/18 18:33 Plt Count 221 K/uL (130-400) 07/27/18 18:33 MPV 7.9 fL (7.2-11.7) 07/27/18 18:33 Neut % (Auto) 76.8 % (50.0-75.0) H 07/27/18 18:33 Lymph % (Auto) 10.2 % (20.0-40.0) L 07/27/18 18:33 [place] % (Auto) 12.1 % (0.0-10.0) H 07/27/18 18:33 Eos % (Auto) 0.6 % (0.0-4.0) 07/27/18 18:33 Baso % (Auto) 0.3 % (0.0-2.0) 07/27/18 18:33 Neut # (Auto) 7.9 K/uL (1.8-7.0) H 07/27/18 18:33 Lymph # (Auto) 1.1 K/uL (1.0-4.3) 07/27/18 18:33 [place] # (Auto) 1.3 K/uL (0.0-0.8) H 07/27/18 18:33 Eos # (Auto) 0.1 K/uL (0.0-0.7) 07/27/18 18:33 Baso # (Auto) 0.0 K/uL (0.0-0.2) 07/27/18 18:33 Sodium 133 mmol/L (132-148) 07/27/18 18:33 Potassium 4.8 mmol/L (3.6-5.2) 07/27/18 18:33 Chloride 94 mmol/L (98-107) L 07/27/18 18:33 Carbon Dioxide 28 mmol/L (22-30) 07/27/18 18:33 Anion Gap 16 (10-20) 07/27/18 18:33 BUN 20 mg/dL (9-20) 07/27/18 18:33 Creatinine 1.3 mg/dL (0.8-1.5) 07/27/18 18:33 Est GFR ( Amer) > 60 07/27/18 18:33 Est GFR (Non-Af Amer) 53 07/27/18 18:33 POC Glucose (mg/dL) 216 mg/dL (65-110) H 07/29/18 15:44 Random Glucose 169 mg/dL (75-110) H 07/27/18 18:33 Calcium 9.0 mg/dl (8.6-10.4) 07/27/18 18:33 Total Bilirubin 0.6 mg/dL (0.2-1.3) 07/27/18 18:33 AST 27 U/L (17-59) 07/27/18 18:33 ALT 37 U/L (21-72) 07/27/18 18:33 Alkaline Phosphatase 87 U/L (38-126) 07/27/18 18:33 Total Protein 7.8 g/dL (6.3-8.3) 07/27/18 18:33 Albumin 4.1 g/dL (3.5-5.0) 07/27/18 18:33 Globulin 3.6 gm/dL (2.2-3.9) 07/27/18 18:33 Albumin/Globulin Ratio 1.1 (1.0-2.1) 07/27/18 18:33 Lipase 61 U/L (23-300) 07/27/18 18:33 Urine Color Yellow (YELLOW) 07/29/18 06:38 Urine Clarity Clear (Clear) 07/29/18 06:38 Urine pH 5.0 (5.0-8.0) 07/29/18 06:38 Ur Specific [place] 1.007 (1.003-1.030) 07/29/18 06:38 Urine Protein Negative mg/dL (NEGATIVE) 07/29/18 06:38 Urine Glucose (UA) 3+ mg/dL (Normal) H 07/29/18 06:38 Urine Ketones Negative mg/dL (NEGATIVE) 07/29/18 06:38 Urine Blood Trace (NEGATIVE) H 07/29/18 06:38 Urine Nitrate Negative (NEGATIVE) 07/29/18 06:38 Urine Bilirubin Negative (NEGATIVE) 07/29/18 06:38 Urine Urobilinogen Normal mg/dL (0.2-1.0) 07/29/18 06:38 Ur Leukocyte Esterase 2+ [place]/uL (Negative) H 07/29/18 06:38 Urine WBC (Auto) 25 /hpf (0-5) H 07/29/18 06:38 Urine RBC (Auto) 1 /hpf (0-3) 07/29/18 06:38 Urine WBC Clumps (Auto) Few /hpf (NONE) H 07/27/18 18:33 Ur Squamous Epith Cells < 1 /hpf (0-5) 07/29/18 06:38 Urine Bacteria Many (<OCC) H 07/27/18 18:33 Digoxin < 0.4 ng/mL (0.8-2.0) L 07/27/18 20:03 C. difficile Ag & Toxin Negative (NEGATIVE) 07/29/18 04:33 - Hospital Course Hospital Course: admitted for flank pain fever and chills and abnormal urine- treated with antibiotic, culture positive- on antibiotic, been stable- US negative for pyelonephritis- urology to see patient as patient , home with antibiotic and follow up next week in the clinic further discussion with diabetes and management continue same home meds Discharge Exam - Head Exam Head Exam: ATRAUMATIC, NORMOCEPHALIC Discharge Plan - Discharge Medications Prescriptions: Ciprofloxacin HCl [Cipro] 500 mg PO BID #14 tablet - Follow Up Plan Condition: GOOD Disposition: HOME/ ROUTINE Instructions: Urinary Tract Infection in Women (DC), Urinary Tract Infection in Men (DC), Acute Abdominal Pain (DC), Acute Abdominal Pain (GEN), Dysuria (GEN)
[2018-07-30 16:28] LABS: TOTAL PSA 0.5 ng/mL (< or = 4.0)
[2018-07-30 23:10] VITALS: O2SAT 98
--- NOTE | 2018-08-02 13:16 | CON ---
DATE: 07/29/2018 UROLOGY CONSULTATION REASON FOR THE CONSULTATION: Possibility of sepsis and fistula. HISTORY OF PRESENT ILLNESS: Mr. Wei Cespedes is a very pleasant gentleman who we had previously seen. We checked all the records with the possibility for fistula. Urology is consulted for the possibility of return. The past medication is under the care of Dr. Martinez. PAST MEDICAL AND SURGICAL HISTORY: As listed on the chart. No history of CT or CVA noted. Medical issues noted. From the urology standpoint, he is currently resting comfortably in his bed. MEDICATIONS: See chart. ALLERGIES: SEE CHART. PHYSICAL EXAMINATION: GENERAL: Resting comfortably in the bed. VITAL SIGNS: Within normal limits. ABDOMEN: Overall soft. It is not grossly distended. No evidence of retention. LABORATORY DATA: See chart. IMAGING DATA: See chart. DIAGNOSIS: Urinary tract infection. From urology standpoint, we are going to plan the following. Currently, the patient is stable for discharge. We discussed the options with the patient and with the . We will maintain and plan for outpatient followup. No current genitourinary intervention at this point. PLAN: As follows, outpatient followup and review the plan. Thank you for the urology consult. Paul Dillard MD
== END 2018-07-29 17:05 | disposition home or self-care (01) | DRG 690 ==
LOC: C.ER 17:02 → C.9E 19:14 → C.3T 20:08
PROVIDERS: ADMIT Internal Medicine; ATTEND Internal Medicine
DX: N39.0 Urinary tract infection, site not specified (principal); I48.91 Unspecified atrial fibrillation; N40.0 Benign prostatic hyperplasia without lower urinary tract symptoms; Z85.038 Personal history of other malignant neoplasm of large intestine; I10 Essential (primary) hypertension; I25.10 Atherosclerotic heart disease of native coronary artery without angina pectoris; Z79.4 Long term (current) use of insulin; E78.00 Pure hypercholesterolemia, unspecified; Z95.5 Presence of coronary angioplasty implant and graft; E10.40 Type 1 diabetes mellitus with diabetic neuropathy, unspecified

== ENCOUNTER 2018-12-13 08:03 | Outpatient (CLI) | payer MEDICARE | END 2018-12-13 08:04 | disposition home or self-care (01) | LOC: C.LAB 08:03 | DX: E11.9 Type 2 diabetes mellitus without complications (principal) ==

== ENCOUNTER 2019-01-06 12:11 | Outpatient (CLI) | payer MEDICARE | END 2019-01-06 12:12 | disposition home or self-care (01) | LOC: C.RADIC 12:11 | DX: R50.9 Fever, unspecified (principal); R05 Cough ==

== ENCOUNTER 2019-02-09 08:14 | Outpatient (CLI) | payer MEDICARE | END 2019-02-09 08:15 | disposition home or self-care (01) | LOC: C.LAB 08:14 | DX: E11.65 Type 2 diabetes mellitus with hyperglycemia (principal); I10 Essential (primary) hypertension; E04.2 Nontoxic multinodular goiter; E78.2 Mixed hyperlipidemia; E01.8 Other iodine-deficiency related thyroid disorders and allied conditions; E06.3 Autoimmune thyroiditis; E88.81 Metabolic syndrome and other insulin resistance; E29.1 Testicular hypofunction; D51.9 Vitamin B12 deficiency anemia, unspecified; E64.3 Sequelae of rickets; D64.9 Anemia, unspecified; N30.00 Acute cystitis without hematuria; N18.9 Chronic kidney disease, unspecified; N41.1 Chronic prostatitis; R97.20 Elevated prostate specific antigen [PSA] ==